=== PATIENT | male | born 1940 | race Caucasian/White ===

== ENCOUNTER 2017-11-27 12:48 | Inpatient (IN) | payer MEDICARE, OTHER, SELFPAY ==
[2017-11-27] VITALS (10 sets, daily range): BP systolic 111–145; BP diastolic 63–74; PULSE 82–91; RESP 16–24; TEMP 36.6–37.4; O2SAT 98–100; BMI 25.0; BMI 25.8; BMI 25.9
--- NOTE | 2017-11-27 13:06 | RAD_ITS ---
STUDY: X-RAY CHEST REASON FOR EXAM: Male, 77 years old. Myocardial infarction TECHNIQUE: Single AP portable view of the chest. COMPARISON: None. FINDINGS: There are monitoring devices. The lungs are hyperexpanded. Left lower lung scarring. There is no demonstrated pleural abnormality. Normal size heart. Normal mediastinum and scarlett. Normal visualized pulmonary arteries. There is atherosclerotic calcification of the aortic arch with tortuosity. Normal visualized thoracic spine. Healed right rib fractures. There is no demonstrated abnormality of the visualized soft tissue structures of the upper abdomen. RAD/Chest 1 View (Portable) IMPRESSION: Degenerative changes, as described above. No demonstrated acute cardiopulmonary process. Electronically Signed: Isca Aj MD at 14:02 EDT , Service support ,
--- NOTE | 2017-11-27 13:06 | NURSING ---
STEMI CALLED [id number] SHELTON FOR DR GUNN [id number]
--- NOTE | 2017-11-27 13:08 | ED.VISSUMM ---
- ER Visit Summary Date of Service: 11/27/17 Chief Complaint: Chest pain History of Present Illness: The patient is a 77 M who presents with chest pain. This began earlier today and is been present for the last several hours. It is severe. He describes as dull. He has associated shortness of breath. He denies nausea or diaphoresis. Denies history of similar symptoms. No history of coronary disease or prior myocardial infarction. He denies a history of diabetes or hypertension and he is a remote smoker but quit 40 years ago. Physical Examination: Blood pressure 145/73 vitals otherwise normal Moist mucous membranes Heart regular rate and rhythm Lungs clear Abdomen soft 2+ symmetric radial pulses Skin warm and dry Alert Test Results: EKG shows ST elevation in leads III and aVF with lateral ST depression consistent with acute inferior STEMI. Labs are pending. Chest x-ray pending. Emergency Department Course and Treatment: Patient was discussed with Dr. arteaga and I did discuss risks and benefits of cardiac catheterization with the patient and patient consents. Patient was given aspirin, IV heparin, IV morphine, Brilinta. Patient will be taken to the Supervisor Twisting Department. Treatment Plan: [] Disposition: To Supervisor Twisting Department Impression: Inferior STEMI This note was generated with AntVoice dictation software. It may contain incorrect words, spelling, and punctuation that were not noted in review of the chart prior to signing ED Disposition - Plan for ED Patient: Chief Complaint: Chest Pain Referrals: Jaime Brown MD [Primary Care Provider] -
[2017-11-27] MEDS: TICAGRELOR 90 MG TABLET 180 MG PO (13:10)
[2017-11-27] MEDS: Aspirin 81 MG TAB.CHEW 324 MG PO (13:10)
[2017-11-27] MEDS: Morphine 4 MG/ML Syringe IV (13:10)
[2017-11-27] MEDS: Heparin Injection (Vial) 5,000 UNIT/ML VIAL 4000 UNIT IV (13:11)
--- NOTE | 2017-11-27 13:11 | ED.DCSUM_ITS ---
- ER Visit Summary Date of Service: 11/27/17 Chief Complaint: Chest pain History of Present Illness: The patient is a 77 M who presents with chest pain. This began earlier today and is been present for the last several hours. It is severe. He describes as dull. He has associated shortness of breath. He denies nausea or diaphoresis. Denies history of similar symptoms. No history of coronary disease or prior myocardial infarction. He denies a history of diabetes or hypertension and he is a remote smoker but quit 40 years ago. Physical Examination: Blood pressure 145/73 vitals otherwise normal Moist mucous membranes Heart regular rate and rhythm Lungs clear Abdomen soft 2+ symmetric radial pulses Skin warm and dry Alert Test Results: EKG shows ST elevation in leads III and aVF with lateral ST depression consistent with acute inferior STEMI. Labs are pending. Chest x- ray pending. Emergency Department Course and Treatment: Patient was discussed with Dr. arteaga and I did discuss risks and benefits of cardiac catheterization with the patient and patient consents. Patient was given aspirin, IV heparin, IV morphine, Brilinta. Patient will be taken to the Patient Account Specialist. Treatment Plan: [] Disposition: To Patient Account Specialist Impression: Inferior STEMI This note was generated with Modabound dictation software. It may contain incorrect words, spelling, and punctuation that were not noted in review of the chart prior to signing ED Disposition - Plan for ED Patient: Chief Complaint: Chest Pain Referrals: Jaime Brown MD [Primary Care Provider] -
[2017-11-27 13:15] LABS: Absolute Lymphocyte Count 1.34 X10^3/ul (0.83-4.51); Absolute Neutrophil Count 8.1 X10^3/uL (2.0-7.7); Basophil# 0.02 X10^3/uL; Basophil% 0.2 % (0-1); Eosinophil# 0.09 X10^3/uL; Eosinophils% 0.8 % (0-5); Hematocrit 36.6 % (40-54); Hemoglobin 12.9 g/dl (13.0-16.5); Lymphocyte # 1.34 X10^3/ul (4.0); Lymphocyte % 12.2 % (19-41); Mean Corp Hgb Conc 35.2 g/gl (32-36); Mean Corpuscular Hgb 32.1 pg (27.0-32.0); Mean Platelet Vol. 9.2 fl (6.2-12.0); Monocyte# 1.46 X10^3/uL; Monocyte% 13.3 % (0-10); Neutrophil # 8.06 X10^3/uL (2.7-7.7); Neutrophil % 73.3 % (47-70); POSITIVE COUNT NO; POSITIVE DIFFERENTIAL NO; POSITIVE MORPHOLOGY NO; Platelet Count 92 K/mm3 (150-450); RBC Distribution Width SD 39.5 fl (35.1-43.9); Red Blood Count 4.02 M/mm3 (4.6-6.2)
--- NOTE | 2017-11-27 13:18 | NURSING ---
DR SHELTON IN WITH PATIENT
[2017-11-27 13:20] LABS: International Normalized Ratio 1.1; Partial Thromboplast Time 32.6 Seconds (24.1-36.2); Prothrombin Time (Protime)PT. 14.1 SECONDS (11.7-14.9)
--- NOTE | 2017-11-27 13:29 | PCM.CONS.C ---
Problem List (1) STEMI (ST elevation myocardial infarction) Status: Acute Reason for Consult Date of Consultation: 11/27/17 History of Present Illness: The patient is a 77 year old M [] Past Medical History Allergies/Adverse Reactions: Allergies No Known Allergies Allergy (Verified 10/25/17 13:58) Home Medications: Ambulatory Orders Medication Instructions Recorded Atorvastatin Calcium [Lipitor] 40 mg PO QHS 01/21/17 Gabapentin [Neurontin] 300 mg PO DAILY 01/21/17 Methocarbamol [Robaxin] 500 mg PO BID 01/21/17 Miconazole Nitrate [Monistat-Derm, 1 applic TOPICAL DAILY 01/21/17 Micatin] Tramadol HCl [Ultram] 50 mg PO BID 01/21/17 Triamcinolone 0.1% Cream [Kenalog] 1 tube TOPICAL DAILY 01/21/17 Meclizine HCl [Antivert] 25 mg PO 4X/DAY PRN PRN 01/25/17 Omeprazole [Prilosec] 40 mg PO DAILY 04/26/17 Hydrocortisone 1% Crm [Hytone] 1 each TOPICAL DAILY PRN 11/27/17 Past Medical History (Chronic Problems): Chronic Problems (Last Reviewed 10/25/17 @ 13:58 by Sandrine Tam) Thrombocytopenia (Chronic) Smoking Status: Former smoker Review of Systems - Review of Systems General: Reports: - - Complaining of being cold. Denies: Fever HEENT: Denies: Head Aches Cardiovascular: Reports: Chest Discomfort at Rest, Chest Discomfort with Exertion, Shortness of Breath with Exertion. Denies: Orthopnea, PND, Peripheral Edema, Palpitations Respiratory: Denies: Hemoptysis Gastrointestinal: Denies: Abdominal Discomfort, Jaundice, Nausea, Hematemesis, Melena Neurological: Denies: History of TIA, History of CVA Psychiatric: Reports: - - Question of dementia Endocrine: Denies: Heat Intolerance, Cold Intolerance Hematologic/ Lymphatic: Reports: - - History of chronic thrombocytopenia. Denies: Easy Brusing, Easy Bleeding Subjectve: Appeared anxious and mildly distressed Objective: Vital Signs Temp Pulse Resp BP Pulse Ox 98 F 91 16 132/67 H 100 11/27/17 12:49 11/27/17 13:15 11/27/17 13:15 11/27/17 13:15 11/27/17 13:15 Oxygen Flow Rate (L/min) 2 Oxygen Delivery Method Nasal Cannula Weight: 68.039 kg Body Mass Index (BMI) 25.0 General: Awake, Alert, Oriented x 3, In Acute Distress HEENT: Atraumatic, Normocephalic Oral: Moist Mucosa Neck: Supple, No JVD Lungs: Clear to auscultation Cardiovascular: Regular Rhythm, Normal S1, Normal S2 Vascular: No Carotid Bruits Abdomen: Bowel Sounds Present, Soft Extremities: No edema Neurological: No Focal Motor or Sensory Deficit Psych/Mental Status: Appropriate 11/27/17 13:00: WBC 11.0, RBC 4.02 L, Hgb 12.9 L, Hct 36.6 L, MCV 91.0, MCH 32.1 H, MCHC 35.2, RDW 12.0, RDW Differential 39.5, Plt Count 92 L, MPV 9.2, Immature Gran % (Auto) 0.200, Neut % (Auto) 73.3 H, Lymph % (Auto) 12.2 L, [place] % (Auto) 13.3 H, Eos % (Auto) 0.8, Baso % (Auto) 0.2, Absolute Neuts (auto) 8.1 H, Total Counted Not Reportable 11/27/17 13:00: PT 14.1, INR 1.1, APTT 32.6 Rhythm: Normal sinus rhythm EKG: Normal sinus rhythm. ST changes consistent with acute inferior myocardial infarction ECHO: Stress Test: Cardiac Cath: PCI: CT Surgery: Holter monitor: EPS: PPM: CXR: Chest CT Scan: Assessment/Plan 1. Acute inferior ST elevation myocardial infarction. Patient was advised emergent coronary angiography with possible revascularization. After obtaining informed consent, patient was brought to the cardiac catheterization lab. Coronary angiography revealed severely calcified vessels. The right coronary artery had about 80% proximal stenosis, 95% mid heavily calcified lesion and 99% distal lesion. Balloon angioplasty was performed to all 3 lesions. The distal lesion improved from 99% to about 30%. The mid lesion which was noted to be heavily calcified however did not open up with balloon angioplasty. Multiple noncompliant balloons were used with pressure as high as 30 humphrey. However the lesion could not be opened up. Balloon angioplasty was performed to the proximal lesion and a 3 oh by 18 mm bare-metal stent was deployed reducing lesion severity from 80% to 0%. GLENDY flow was improved from GLENDY II to GLENDY III. Patient's chest pain resolved. EKG changes resolved. In my opinion, the patient will need rotablation to his mid RCA lesion. I will contact either [facility] or [facility] [place] for possible transfer there. 2. Patient was loaded with aspirin and Brilinta. We will start patient on a heparin infusion when hemostasis of his left hand is achieved. Please note that left distal first radial artery was used for access 3. History of thrombocytopenia 4. History of thrombocytopenia I did speak to the template reproduction technician csm consultant at [facility] [place]. The plan is to transfer him urgently there. If he continues to be chest pain-free, then plan rotablation to the mid RCA tomorrow with possible stent placement
[2017-11-27 13:35] LABS: Anion Gap 11 (5-15); BUN 22 mg/dL (7-18); BUN/Creat Ratio 17.6 RATIO (10-20); Calcium,Total 8.5 mg/dL (8.5-10.1); Chloride 102 mmol/L (98-107); Creatinine, Serum 1.25 mg/dL (0.70-1.30); EST Glomerular Filtration Rate 59 mL/min (>60); Est Glom Filt Rate - Afr Amer 72 mL/min (>60); Estimated Creatinine Clearance 42.37 ml/min; Glucose 96 mg/dL (74-106); Potassium 4.1 mmol/L (3.5-5.1); Sodium Level 139 mmol/L (136-145)
[2017-11-27] MEDS: HYDROmorphone 1 MG/ML Syringe IV (13:44)
--- NOTE | 2017-11-27 13:53 | CON.PCM_ITS ---
Problem List (1) STEMI (ST elevation myocardial infarction) Status: Acute Reason for Consult Date of Consultation: 11/27/17 History of Present Illness: The patient is a 77 year old M [] Past Medical History Allergies/Adverse Reactions: Allergies No Known Allergies Allergy (Verified 10/25/17 13:58) Home Medications: Ambulatory Orders Medication Instructions Recorded Atorvastatin Calcium [Lipitor] 40 mg PO QHS 01/21/17 Gabapentin [Neurontin] 300 mg PO DAILY 01/21/17 Methocarbamol [Robaxin] 500 mg PO BID 01/21/17 Miconazole Nitrate [Monistat-Derm, 1 applic TOPICAL DAILY 01/21/17 Micatin] Tramadol HCl [Ultram] 50 mg PO BID 01/21/17 Triamcinolone 0.1% Cream [Kenalog] 1 tube TOPICAL DAILY 01/21/17 Meclizine HCl [Antivert] 25 mg PO 4X/DAY PRN PRN 01/25/17 Omeprazole [Prilosec] 40 mg PO DAILY 04/26/17 Hydrocortisone 1% Crm [Hytone] 1 each TOPICAL DAILY PRN 11/27/17 Past Medical History (Chronic Problems): Chronic Problems (Last Reviewed 10/25/17 @ 13:58 by Sandrine Tam) Thrombocytopenia (Chronic) Smoking Status: Former smoker Review of Systems - Review of Systems General: Reports: - - Complaining of being cold. Denies: Fever HEENT: Denies: Head Aches Cardiovascular: Reports: Chest Discomfort at Rest, Chest Discomfort with Exertion, Shortness of Breath with Exertion. Denies: Orthopnea, PND, Peripheral Edema, Palpitations Respiratory: Denies: Hemoptysis Gastrointestinal: Denies: Abdominal Discomfort, Jaundice, Nausea, Hematemesis, Melena Neurological: Denies: History of TIA, History of CVA Psychiatric: Reports: - - Question of dementia Endocrine: Denies: Heat Intolerance, Cold Intolerance Hematologic/ Lymphatic: Reports: - - History of chronic thrombocytopenia. Denies: Easy Brusing, Easy Bleeding Subjectve: Appeared anxious and mildly distressed Objective: Vital Signs Temp Pulse Resp BP Pulse Ox 98 F 91 16 132/67 H 100 11/27/17 12:49 11/27/17 13:15 11/27/17 13:15 11/27/17 13:15 11/27/17 13:15 Oxygen Flow Rate (L/min) 2 Oxygen Delivery Method Nasal Cannula Weight: 68.039 kg Body Mass Index (BMI) 25.0 General: Awake, Alert, Oriented x 3, In Acute Distress HEENT: Atraumatic, Normocephalic Oral: Moist Mucosa Neck: Supple, No JVD Lungs: Clear to auscultation Cardiovascular: Regular Rhythm, Normal S1, Normal S2 Vascular: No Carotid Bruits Abdomen: Bowel Sounds Present, Soft Extremities: No edema Neurological: No Focal Motor or Sensory Deficit Psych/Mental Status: Appropriate 11/27/17 13:00: WBC 11.0, RBC 4.02 L, Hgb 12.9 L, Hct 36.6 L, MCV 91.0, MCH 32.1 H, MCHC 35.2, RDW 12.0, RDW Differential 39.5, Plt Count 92 L, MPV 9.2, Immature Gran % (Auto) 0.200, Neut % (Auto) 73.3 H, Lymph % (Auto) 12.2 L, [place] % (Auto) 13.3 H, Eos % (Auto) 0.8, Baso % (Auto) 0.2, Absolute Neuts (auto) 8.1 H, Total Counted Not Reportable 11/27/17 13:00: PT 14.1, INR 1.1, APTT 32.6 Rhythm: Normal sinus rhythm EKG: Normal sinus rhythm. ST changes consistent with acute inferior myocardial infarction ECHO: Stress Test: Cardiac Cath: PCI: CT Surgery: Holter monitor: EPS: PPM: CXR: Chest CT Scan: Assessment/Plan 1. Acute inferior ST elevation myocardial infarction. Patient was advised emergent coronary angiography with possible revascularization. After obtaining informed consent, patient was brought to the cardiac catheterization lab. Coronary angiography revealed severely calcified vessels. The right coronary artery had about 80% proximal stenosis, 95% mid heavily calcified lesion and 99 % distal lesion. Balloon angioplasty was performed to all 3 lesions. The distal lesion improved from 99% to about 30%. The mid lesion which was noted to be heavily calcified however did not open up with balloon angioplasty. Multiple noncompliant balloons were used with pressure as high as 30 humphrey. However the lesion could not be opened up. Balloon angioplasty was performed to the proximal lesion and a 3 oh by 18 mm bare-metal stent was deployed reducing lesion severity from 80% to 0%. GLENDY flow was improved from GLENDY II to GLENDY III. Patient's chest pain resolved. EKG changes resolved. In my opinion, the patient will need rotablation to his mid RCA lesion. I will contact either [facility] or [facility] for possible transfer there. 2. Patient was loaded with aspirin and Brilinta. We will start patient on a heparin infusion when hemostasis of his left hand is achieved. Please note that left distal first radial artery was used for access 3. History of thrombocytopenia 4. History of thrombocytopenia I did speak to the printed circuit boards contact printer boilermaker assembly and erection at [facility]. The plan is to transfer him urgently there. If he continues to be chest pain-free, then plan rotablation to the mid RCA tomorrow with possible stent placement
[2017-11-27] MEDS: 0.9% Normal Saline 1,000 ML 100 ML IV (16:00)
--- NOTE | 2017-11-27 16:29 | CL.I_ITS ---
Patient Name: ELEANOR BANDA Study Date: 11/27/2017 Performing: Jil Mejia MD Ht: 65 inches 165 cm : 1940 Wt: 150.1 lbs 68 kg Age: 77 Gender: male BSA: 1.75 PROCEDURE(S) PERFORMED [id number] GUIDED ACCESS QA04-CGF/COR/LV DB32-TBC, BMS AND/OR PTCA ARTERY OR GRAFT SINGLE VESSEL CLINICAL PROFILE AND CO-MORBIDITIES Heart Failure: None CAD Presentations: STEMI. Symptom onset Date/Time: 11/27/2017 Time Not Available CONCLUSIONS Successful PCI with POBA to distal RCA with 3.0 mm balloon. Reducing lesion severity from 99% to less than 30% Unsuccessful PTCA Mid RCA despite using multiple non-compliant balloons at pressures as high as 30 at mospheres Successful PTCA/BMS Prox RCA using Integrity 3.0x18 mm, post-dilated using 3.25 mm balloon LVEF 50% RECOMMENDATIONS ASA Indefinitley Brilinta for at least 1 month Rotablation to mid RCA with stents to distal and mid RCA. Staged PCI to LAD DESCRIPTION OF PROCEDURE The patient arrived to the procedure lab. The risks and benefits of the procedure as well as a full d escription of our services here and lack of surgical backup were fully explained to the patient and/o r their significant other prior to the catheterization. The Timeout was completed, verifying the willard ect patient and procedure. The patient's procedural site was prepped and draped in the usual fashion. Local anesthetic was given subcutaneously to left radial region with Lidocaine 2%. Using a modified Seldinger technique, and ultrasound guidance,arterial access was obtained via the left radial artery, a 6Fr sheath was inserted.. Left Coronary Artery selective angiography was performed in multiple vi ews using a 5 Fr. 4.0 [place] catheter. Right Coronary Artery selective angiography was then performed in multiple views using a 5 Fr. 4.0 [place] catheter. Left Ventriculography was performed in ANTOINE projec tion using a 5 Fr. Pigtail catheterThe images were reviewed and options discussed. A decision was the n made to proceed with an Intervention, IVUS or other adjunct procedure. AL .75 Guide Guide catheter was inserted and engaged into the RCA. Runthrough Wire Guide wire was adv anced to the RCA. 3.0 x 20 Emerge Balloon catheter was inserted. Balloon catheter was advanced across lesion in the right coronary, mid/distal PTCA balloon inflated at 10 atms for 19 secs. PTCA balloon inflated at 12 atms for 18 secs. PTCA balloon inflated at 10 atms for 12 secs. Angiogram performed po st balloon dilatation. PTCA balloon inflated at 12 atms for 25 secs. PTCA balloon inflated at 12 atms for 15 secs. Angiogram performed post balloon dilatation. 3.0 x 20 NC Emerge Balloon catheter was in serted. Balloon catheter was advanced across lesion in the right coronary, mid/distal. Angiogram perf ormed pre balloon dilatation. PTCA balloon inflated at 18 atms for 20 secs. PTCA balloon inflated at 22 atms for 30 secs. PTCA balloon inflated at 24 atms for 21 secs. PTCA balloon inflated at 24 atms f or 20 secs. PTCA balloon inflated at 18 atms for 10 secs. Angiogram performed post balloon dilatation . Chioce Wire Guide wire was inserted as a av wire [employer] [place] Guide wire was inserted as a budd y wire 2.5 x 20 NC Emerge Balloon catheter was inserted. Balloon catheter was advanced across lesion in the right coronary, mid. PTCA balloon inflated at 16 atms for 13 secs. PTCA balloon inflated at 16 atms for 13 secs. PTCA balloon inflated at 26 atms for 26 secs. PTCA balloon inflated at 24 atms for 23 secs. PTCA balloon inflated at 28 atms for 35 secs. Angiogram performed post balloon dilatation. 2.5 x 15 NC Euphora Balloon catheter was inserted. Balloon catheter was advanced across lesion in th e right coronary, mid/distal. PTCA balloon inflated at 28 atms for 30 secs. 2.5 x 10 Angiosculpt Ball oon catheter was inserted. Balloon catheter was advanced across lesion in the right coronary, mid/dis louis. [employer] [place] Guide wire was inserted as a av wire 2.75 x 15 NC Emerge Balloon catheter was i nserted. Balloon catheter was advanced across lesion in the right coronary, mid/distal. PTCA balloon inflated at 24 atms for 30 secs. PTCA balloon inflated at 26 atms for 22 secs. PTCA balloon inflated at 25 atms for 38 secs. 3.0 x 20 Emerge Balloon catheter was reinserted Balloon catheter was advanced across lesion in the right coronary, prox. Angiogram performed pre balloon dilatation. PTCA balloon inflated at 10 atms for 60 secs. Angiogram performed post balloon dilatation. 3.0 x 18 Integrity Bare Metal stent was inserted Bare Metal stent was advanced across the lesion in the right coronary, prox imal. Angiogram performed pre stent deployment. Angiogram performed post stent deployment. 3.25 x 15 NC Emerge Balloon catheter was inserted. Balloon catheter was advanced across lesion in the right cor onary, proximal. Angiogram performed post balloon dilatation. Angiogram performed pre balloon dilatat ion. 2.5 x 15 NC Emerge Balloon catheter was inserted. Balloon catheter was advanced across lesion in the right coronary, mid. Angiogram performed post balloon dilatation. Angiogram performed post ballo on dilatation. The arterial sheath was pulled and a TR Band was applied for hemostasis 18cc of air CORONARY ANGIOGRAPHY DOMINANCE: Right Dominant LEFT HEART ASSESSMENT Left Ventricular Ejection Fraction: by LV Gram 50 %. Severe posterior hypokinesis LVEDP: 16 mmHg LEFT MAIN: Heavily calcific. No significant angiographic disease LEFT ANTERIOR DECENDING ARTERY: 75% Prox, 70% Mid. Heavily calcified CIRCUMFLEX ARTERY: Mild luminal irregularities with heavily caclific disease RIGHT CORONARY ARTERY: 80% Prox, 95% Mid, 99% distal. All heavily calcified lesions INTERVENTION INFORMATION LESION SITE: RCA Distal Lesion Complexity: High/C, culprit lesion: Yes Pre Stenosis: 99 % Pre intervention GLENYD flow: 2 PROCEDURE: Balloon Angioplasty Post Stenosis: 30 % Post intervention GLENDY flow: 3 Lesion Devices: Cordis 6 Fr AL.75 100cm Guide Catheter Rodriguez Sci EMERGE MR 3.00x20 BALLOON Terumo .014 Runthrough Extra Floppy 180cm straight Rodriguez Sci NC EMERGE MR 3.00x20 BALLOON Rodriguez Sci .014 Choice Xtra Support wire 182cm Rodriguez Sci NC EMERGE MR 2.50x20 BALLOON Meier .014 [employer] [place] Straight 190cm Medtronic NC EUPHORA RX 2.5x15 BALLOON Access [employer] Angiosculpt RX 2.5x10 Scoring Balloon Rodriguez Sci NC EMERGE MR 2.75x15 BALLOON LESION SITE: RCA (Mid) Lesion Complexity: High/C, culprit lesion: No Pre Stenosis: 95 % Pre intervention GLENDY flow: 2 PROCEDURE: Balloon Angioplasty Post Stenosis: 95 % Post intervention GLENDY flow: 3 Lesion Devices: Cordis 6 Fr AL.75 100cm Guide Catheter Rodriguez Sci EMERGE MR 3.00x20 BALLOON Terumo .014 Runthrough Extra Floppy 180cm straight Rodriguez Sci NC EMERGE MR 3.00x20 BALLOON Rodriguez Sci .014 Choice Xtra Support wire 182cm Rodriguez Sci NC EMERGE MR 2.50x20 BALLOON Meier .014 BMW [place] Straight 190cm Medtronic NC EUPHORA RX 2.5x15 BALLOON Access [employer] Angiosculpt RX 2.5x10 Scoring Balloon Rodriguez Sci NC EMERGE MR 2.75x15 BALLOON Rodriguez Sci NC EMERGE MR 2.50x15 BALLOON LESION SITE: RCA (Proximal) Lesion Complexity: Non-High/Non-C, culprit lesion: No Pre Stenosis: 80 % Pre intervention GLENDY flow: 2 PROCEDURE: 0 % Post intervention GLENDY flow: 3 Lesion Devices: Cordis 6 Fr AL.75 100cm Guide Catheter Rodriguez Sci EMERGE MR 3.00x20 BALLOON Terumo .014 Runthrough Extra Floppy 180cm straight Medtronic Integrity RX BMS 3.0x18 COMPLICATIONS No Complications PROCEDURE MEDICATIONS Oxygen: 2 L/min via nasal cannula Angiomax 24.5 ml's 11/27/2017 13:58:07 Angiomax complete @ 11/27/2017 15:16:31 Nitro 200 mcg IC 11/27/2017 14:33:52 Nitro 200 mcg IC 11/27/2017 14:33:52 Verapamil 2.5mg, Ntg 100mcgs, given IA 11/27/2017 13:50:10 IV Bolus: .9 NaCl 1600 ml total 11/27/2017 14:06:10 IV Fluids: .9 NaCl decreased to 100 ml/hr 11/27/2017 14:06:27 SUMMARY OF HEMODYNAMIC DATA Time AIR REST ECG 13:35:07 AO 91/47 (67) SA 13:54:29 LV 112/7, 18 15:22:28 LV 105/4, 16 15:22:35 LV 115/18, 25 15:25:05 LV 108/12, 20 15:25:11 LVp 110/6, 19 15:25:15 AOp 93/-231 (57) 15:25:20 Signed By Jil Mejia MD On 11/27/2017 16:28:52 iJl Mejia MD
--- NOTE | 2017-11-27 17:31 | PCM.DC.BLA ---
Discharge Summary Date of Admission: 11/27/17 Date of Discharge: 11/27/17 Summary: Primary diagnosis: Acute inferior ST elevation myocardial infarction Secondary diagnoses: 1. Dyslipidemia 2. Coronary artery disease 3. Chronic thrombocytopenia Brief history and hospital course: Patient presented to the emergency room with chest pain. EKG showed changes consistent with acute inferior ST elevation myocardial infarction. A STEMI alert was called. Patient was taken emergently to the cardiac catheterization lab. Coronary angiography revealed severe calcific RCA disease. Proximal RCA was about 80%. This was treated with balloon angioplasty and a bare-metal stent was placed. Distal RCA had about 99% disease. Balloon angioplasty was performed reducing lesion severity from 99% to less than 30%. GLENDY III flow was restored. Mid right coronary artery was heavily calcified. 95% lesion. Balloon angioplasty was performed however it was unsuccessful on account of extreme calcification. Multiple noncompliant balloons were used under high pressures however the lesion did not give way. She has GLENDY-3 flow had been restored and the patient was asymptomatic, the procedure was stopped. Patient was transferred to [facility] for possible rotablation to the right coronary artery. Also recommend staged intervention to the left anterior descending artery with rotablation Final disposition: Patient transferred to the [facility] ICU in stable condition
[2017-11-28 06:50] LABS: ACT Activated Clotting Time 307 sec (74-137)
[2017-11-28 06:50] LABS: ACT Activated Clotting Time 186 sec (74-137)
== END 2017-11-27 17:15 | disposition short-term general hospital (02) | DRG 249 ==
LOC: ED 13:33 → ICU 14:00
PROVIDERS: Admitting Provider Internal Medicine Cardiovascular Disease; Emergency Provider Emergency Medicine; Family Provider Family Medicine; PCP Family Medicine; Visit Provider Internal Medicine Cardiovascular Disease
DX: I21.19 ST elevation (STEMI) myocardial infarction involving other coronary artery of inferior wall (principal); D69.6 Thrombocytopenia, unspecified; I25.10 Atherosclerotic heart disease of native coronary artery without angina pectoris; I25.84 Coronary atherosclerosis due to calcified coronary lesion; Z87.891 Personal history of nicotine dependence; E78.5 Hyperlipidemia, unspecified
CPT/HCPCS: 71045; 76937; 80048; 84484; 85025; 85347; 85610; 85730; 92941; 93005; 93458; 99283; J7030; Q9967; A4216; C1725; C1769; C1887; C1894; J0583

== ENCOUNTER → 2017-12-28 13:20 | Outpatient (CLI) | payer MEDICARE, OTHER, SELFPAY ==
[2017-12-28 13:41] LABS: Absolute Lymphocyte Count 1.33 X10^3/ul (0.83-4.51); Basophil# 0.02 X10^3/uL; Basophil% 0.4 % (0-1); Eosinophil# 0.22 X10^3/uL; Eosinophils% 4.2 % (0-5); Hematocrit 34.4 % (40-54); Hemoglobin 11.2 g/dl (13.0-16.5); Lymphocyte # 1.33 X10^3/ul (4.0); Lymphocyte % 25.3 % (19-41); Mean Corp Hgb Conc 32.6 g/gl (32-36); Mean Corpuscular Hgb 30.1 pg (27.0-32.0); Mean Corpuscular Volume 92.5 fL (80-94); Mean Platelet Vol. 9.5 fl (6.2-12.0); Monocyte# 0.68 X10^3/uL; Monocyte% 12.9 % (0-10); Platelet Count 117 K/mm3 (150-450); RBC Distribution Width CV 14.5 % (11.6-14.6); RBC Distribution Width SD 48.6 fl (35.1-43.9); Red Blood Count 3.72 M/mm3 (4.6-6.2); White Blood Count 5.3 K/mm3 (4.4-11.0)
[2017-12-28 13:42] LABS: POSITIVE COUNT NO; POSITIVE DIFFERENTIAL NO; POSITIVE MORPHOLOGY NO
== END ==
PROVIDERS: Nurse Practitioner Family; Family Provider Family Medicine; PCP Family Medicine; Visit Provider Internal Medicine Cardiovascular Disease
DX: D69.6 Thrombocytopenia, unspecified (principal); I25.10 Atherosclerotic heart disease of native coronary artery without angina pectoris
CPT/HCPCS: 36415; 85025

== ENCOUNTER → 2018-01-03 10:24 | Outpatient (CLI) | payer MEDICARE, OTHER, SELFPAY ==
--- NOTE | 2018-01-03 10:32 | PCM.CR.ITP ---
General Information - General Information Admitting Diagnosis: STEMI, PCI w/stent at [facility]. Transferred to [facility] for further intervention. - Education/Goals Barriers to Learning: Hearing Impairment, Vision Impairment Individual Counseling: Initial Assessment: High Blood Pressure, Hypertension, Sedentary Lifestyle Cardiac Rehabilitation Goals: 1. Maintain the individual as the primary focus of care. 2. To improve the patient's quality of life. 3. Identification of cardiac risk factors and provide cardiac risk factor management. 4. Enhance the psychosocial status of the patient. 5. Reconditioning enough to allow the patient to resume customary activities. 6. Control symptoms of cardiac disease Scale for measuring improvement of personal goals: Enter appropriate number in Comments. 2 = Unchanged. 3 = Slightly Better. 4 = Moderate Improvement. 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 Total Cholesterol <200. HDL >45. Triglycerides <150. HgbA1C <7%. BMI <25 - Visit Date of Assessment:: 01/03/18 - Stages of Change Stages of Change:: Action - Diabetes Diabetes:: No Insulin: No Do you monitor your blood sugar at home?: No - Weight Management Height: 5 ft 5 in Weight:: 144 lb Body Fat %:: 23.9 - Intervention Referral to dietitian:: No Referral to Diabetic Clinic:: No Will attend diet classes:: Yes - Education Gave educational materials for:: Healthy eating Tobacco - Initial Assessment - Program Goals Tobacco Program Goals: Complete smoking cessation. Attend education classes. Improve Knowledge Test score - Stage of Change Stages of Change:: Action - Learning Barriers Learning Barriers: Hearing - bilateral hearing loss/wears aids, Vision, Ready to Learn - Family Support Do you have family support?: Yes - Tobacco Use Tobacco Use: Non-smoker Do you use smokeless tobacco?: No - Intervention Smoking Cessation Referral:: No Individual Education/Counseling:: No Education Schedule Given:: Yes - Education Gave educational material for:: Coronary artery disease, Risk factors, Sexuality, Medical compliance, Cardiac A&P, Angina signs & symptoms Psychosocial - Initial Assess - Target Goals Target Goals: Assess presence or absence of depression. Using a valid screening tool, maximizes coping skills. Positive support system - Stages of Change Stages of Change:: Action - Psychosocial Test Tool Used:: HANDS Depression Questionnaire - Intervention PS - Interventions: Yes Attend Stress Management Classes, No Referral to Mental Health, No Referral to [facility] Case Management, No Referral to Physician, No Uses Stress Management Skills - Education Gave educational materials for:: Coping techniques, Signs & symptoms of depression, Stress management, Relaxation techniques - Patient/Program Goal Preventative Medication(s):: Aspirin, Clopidogrel, Statin/lipid - Assistive Devices Assistive Devices:: None Fall Risk Assessed:: Yes Patient Health Questionnaire Initial Assessment 1. Little interest or pleasure in doing things: Not at all 2. Feeling down, depressed, or hopeless: Not at all 3. Trouble falling or staying asleep, or sleeping too much: Not at all 4. Feeling tired or having little energy: Not at all 5. Poor appetite or overeating: Not at all 6. Feeling bad about yourself -- or that you are a failure or have let yourself or your family down: Not at all 7. Trouble concentrating on things, such as reading the newspaper or watching television: Not at all 8. Moving or speaking so slowly that other people could have noticed. Or the opposite - being so fidgety or restless that you have been moving around a lot more than usual: Not at all 9. Thoughts that you would be better off , or of hurting yourself in some way: Not at all How difficult have these problems made it for you to do your work, take care of things at home, or get along with other people?: Not difficult at all Total Score: 0 JEFE-Q SV Test - Statements CAD is a disease of the arteries in the heart: False Examples of risk factors for heart disease: True Angina is chest pain or discomfort: True The benefits of resistance training include: True Eating more meat and dairy products: False Anti-platelet medications such as aspirin are important: True The only effective way to manage stress: False An exercise warm-up slowly increases heart rate: True Prepared, processed foods usually have high sodium: True Depression is common after a heart attack: True The statin medications lower cholesterol: True To control blood pressure, lower the amount of sodium: True If someone gets chest discomfort during walking: False Transfats are partially hydrogenated vegetable oils: True Sleep apnea that is not treated increases the risk: I Don't Know To control cholesterol, one should become a vegetarian: False Someone knows if he/she is exercising at the right level: I Don't Know Diabetes cannot be prevented with exercise & health eating: False Stress is a large risk for heart attack: True A diet that can help lower blood pressure is rich in: True - Total Score Total Correct Responses: 18 Self-Efficacy Initial Assessment We would like to know how confident you are in doing certain activities. Please select your confidence level for:: Select your confidence level for the following using the scale 1-10 where 1 is not at all confident and 10 is totally confident. Your score is the average of all 6 responses. Fatigue: How confident are you that you can keep the fatigue caused by your disease from interfering with the things you want to do? Select Number: 7 Physical Discomfort or Pain: How confident are you that you can keep the physical discomfort or pain of your disease from interfering with the things you want to do? Select Number: 8 Emotional Distress: How confident are you that you can keep the emotional distress caused by your disease from interfering with the things you want to do? Select Number: 8 Other Symptoms or Health Problems: How confident are you that you can keep other symptoms or health problems from interfering with the things you want to do? Select Number: 7 Different Tasks and Activities: How confident are you that you can do the different tasks and activities needed to manage your health condition so as to reduce your need to see a doctor? Select Number: 8 Medication: How confident are you that you can do things other than just taking medication to reduce how much your illness affects your everyday life? Select Number: 8 Total Score:: 7 Nutrition Survey - Nutrition Survey Instructions Scoring Instructions: Scoring is as follows: Yes = 1 points. No = 0 point. Patient score that is >/=12 is considered to be at potential nutritional risk and could benefit from a referral to a registered dietitian. - Nutrition Survey Initial Have you lost >10 lbs over the past 2 months without trying?: No Are you following a special diet at home for diabetes, low fat, or low salt?: Yes Are you interested in meeting with a dietitian for help understanding your diet?: No Do you eat less than 3 meals a day?: No Do you eat fatty meats (beltran, sausage, ribs, etc), fried foods, desserts, large amounts of salad dressings, margarine, butter, or cheese most days?: No Do you have food allergies? [Enter types in comment field]: No Do you eat in restaurants more than 3 times a week?: Yes Do you season food with salt, seasoning salt, or garlic salt?: No Do you used canned, boxed, frozen meals, or soups, seasoning packets?: No Total Score:: 2
--- NOTE | 2018-01-03 10:33 | PCM.CR.HP2 ---
CR - History & Physical - General Arrival date:: 01/03/18 Arrival time:: 10:33 Date of Referral:: 12/15/17 Date of CR Evaluation:: 01/03/18 Referring Physician: Dr. Ashkan Zavaleta Primary Diagnosis: STEMI w/ PCI and coronary stent placement - History of Present Cardiac Event Onset Date: Enter Onset Date of cardiac illnesses in Comment field below Acute Myocardial Infarction within 12 months:: Yes - STEMI 11/27/2017 PTCA or coronary stenting:: Yes - 11/27/2017 stent done here at [facility] then transferred out Type of Symptoms:: chest pains no radiating pain. Interventions with present event:: Immediate transfer to home performance laborer from ER for intervention Were there any complications?: transferred [facility] for further evaluation and angioplasty of 3rd vessel - Medications Home Medications: Ambulatory Orders Medication Instructions Recorded Atorvastatin Calcium [Lipitor] 40 mg PO QHS 01/21/17 Gabapentin [Neurontin] 300 mg PO DAILY 01/21/17 Methocarbamol [Robaxin] 500 mg PO BID 01/21/17 Miconazole Nitrate [Monistat-Derm, 1 applic TOPICAL DAILY 01/21/17 Micatin] Tramadol HCl [Ultram] 50 mg PO BID 01/21/17 Triamcinolone 0.1% Cream [Kenalog] 1 tube TOPICAL DAILY 01/21/17 Meclizine HCl [Antivert] 25 mg PO 4X/DAY PRN PRN 01/25/17 Hydrocortisone 1% Crm [Hytone] 1 ea TOPICAL DAILY PRN 11/27/17 aspirin 81 mg tablet,delayed 81 mg PO DAILY 12/14/17 release metoprolol tartrate 25 mg tablet 25 mg PO BID 12/14/17 omeprazole 40 mg capsule,delayed 40 mg PO DAILY 12/14/17 release ticagrelor 90 mg tablet 90 mg PO BID 12/14/17 - Allergies Allergies/Adverse Reactions: Allergies No Known Allergies Allergy (Verified 12/14/17 14:23) - Sleep Disorder Evaluation Hx of Sleep Apnea: No Do you snore loudly (louder than talking or can be heard through closed doors)?: Yes Do you often feel tired/ fatigued/ sleepy during daytime?: Yes - sometimes but not all the time Has anyone observed you stop breathing during sleep?: No History of Hypertension (for STOP score): Yes STOP Results: Positive Advanced Directives - Advanced Directives Power of Flooring Salesperson: Yes Living Will: Yes Advance Directives Information Provided: No Advance Directives on File: Yes DNR Order?:: No - MOLST See MOLST form: No Past Medical History - Past Medical Illness Medical History: Past Medical History (Last Updated 12/14/17 @ 14:26 by Flores Copeland) Hyperlipidemia (Chronic) E78.5 GERD (gastroesophageal reflux disease) (Chronic) K21.9 Seborrheic dermatitis L21.9 Anemia D64.9 Arthritis M19.90 CATARACTS Cervical radiculopathy M54.12 Dementia F03.90 Headache R51 Hearing deficit H91.90 Vertigo R42 - Past Surgical History Surgical History: Past Surgical History (Last Updated 12/14/17 @ 14:26 by Flores Copeland) History of percutaneous transluminal coronary angioplasty (Chronic) Z98.61 History of tonsillectomy Z98.890, Z90.89 Hx of hernia repair Z98.890, Z87.19 - Family History Summary Family History: Family History (Last Updated 12/14/17 @ 14:27 by Flores Copeland) Mother Heart disease Father Black lung Social History - Smoking History Smoking Status: Former smoker Years Smokin Packs Smoked per Day: 2 Hx Smoking Cessation Date: 1977 Hx Tobacco Use: No Hx Smoking Exposure: No - Alcohol Use Alcohol Usage: Yes - quit drinking 50 years ago as well. - Substance Abuse Hx Substance Use: No - Occupation Occupation (List type of work in comments):: Retired - Hobbies, Recreation, Social Activities Hobbies: Other - hunting, fishing Recreational Activities: I am able to engage in most, but not all activities Social Environment - Status Marital Status: - Current Living Arrangements Living Environment:: Spouse - Children How many children do you have?: 3 Do any of your children live nearby?: Yes - Safety Do you feel safe in your surroundings?: Yes - Assistance Do you need any assistance at home?: none Review of Systems - Review of Systems Hints: Right click = Denies ([place]). Left click = Reports ([place]) Review of Present Symptoms: Reports: Fatigue - sometimes but not all the time, Appetite - Normal, Appetite - Special Diet - Low sodium, 1800 calorie cardiac diet. Denies: Shortness of Breath at Rest, Shortness of Breath with Exertion, Dizziness/Lightheadedness, Heart Arrhythmia/Irregularities - Pain Is Patient Pain Free?: Yes Pain Location: none Pain Level: 0/10 Risk Factor Assessment - Chief Complaint Chief Complaint: Patient is a 77 yr old male patient of Dr. Zavaleta who presents to cardiac rehab today following recent STEMI and immediate PCI intervention. Patient was transferred to [place] for possible surgical intervention but subsequently opted for angioplasty and additional stent versus more invasive procedure. - Vital Signs Temperature: 98.7 F Respiratory Rate: 16 Pulse Ox: 98 - room air Nailbeds:: pink - Pulse Pulse Rate: 78 Pulse Rhythm: Regular - Hypertension How long have you been treated?: July 2017 Blood Pressure Sitting - Right Arm: 106/48 - Obesity Height: 5 ft 5 in Weight:: 144 lb Weight in Pounds: 144.0 lbs Weight Source: Standing Scale Body Mass Index (BMI): 23.9 Nutritional Referral for Obesity: No - Risk Stratification Risk Guidelines: Lowest Risk: Risk Factor for Smoking, Risk Factor for Dyslipidemia, Risk Factor for Diabetes, Risk Factor for Obesity, Risk Factor for Hypertension, Risk Factor for Depression, Moderate Risk: Risk Factor for Sedentary Lifestyle - For Smoking Smoking Risk Guidelines: Smoking Low Risk: None or quit greater than 6 months ago. Smoking Moderate Risk: Smoker or quit 6 months or less ago. Smoking High Risk: Smoker - For Dyslipidemia Dyslipidemia Risk Guidelines: Low Risk: Moderate Risk: High Risk: 15-25% fat 25.1-29% fat >/= 30% fat. <7% sat fat 7-9% sat fat >9% sat fat. <150 mg chol 150-299 mg chol >/= 300 mg chol. LDL <100 LDL 100-129 LDL >/= 130. Chol/HDL ratio <5.0 Chol/HDL ratio 5.0-6.0 Chol/HDL ratio >6.0. Triglycerides <100 Triglycerides 100-149 Triglycerides >/= 150 - For Diabetes Mellitus Diabetes Risk Guidelines: Diabetes Low Risk: HgA1c <6.5% and/or FBG <120. Diabetes Moderate Risk: HgA1c 6.6-7.9% and/or FBG 120-180. Diabetes High Risk: HgA1c >/= 8% and/or FBG >180 - For Obesity/Overweight Obesity/Overweight Risk Guidelines: Obesity Low Risk: BMI <25.0. Obesity Moderate Risk: BMI 25-29.9. Obesity High Risk: BMI >/= 30.0 - For Hypertension Hypertension Risk Guidelines: Hypertension Low Risk: Systolic <120 and Diastolic <80. Hypertension Moderate Risk: Systolic 120-139 and Diastolic 80-89. Hypertension High Risk: Systolic >/= 140 and Diastolic >/= 90 - For Sedentary Lifestyle Sedentary Lifestyle Risk Guidelines: Sedentary Lifestyle Low Risk: >/= 1,500 kcal/week. Sedentary Lifestyle Moderate Risk: 700-1,499 kcal/week. Sedentary Lifestyle High Risk: < 700 kcal/week - For Depression Depression Risk Guidelines: Depression Low Risk: Not clinically depressed. Depression Moderate Risk: Mildly depressed. Depression High Risk: Clinically depressed - Family History Family History: Family History (Last Updated 12/14/17 @ 14:27 by Flores Copeland) Mother Heart disease Father Black lung Motivation - Motivation to Participate On a scale of 1 to 10, how prepared are you to commit to attending program?: 8 What do you see as barriers to successfully being able to complete the program?: none; winter months and road conditions What do you see as the benefits of succesfully completing the program? In other words, what do you hope to get out of participating in the program?: feeling better, getting back to activity Are there issues you are dealing with that will interfere with completing the program?: none Do you have a spouse or signficant other, family or friends who will help support you to complete the program?: yes
--- NOTE | 2018-01-03 10:38 | CR.HP_ITS ---
CR - History & Physical - General Arrival date:: 01/03/18 Arrival time:: 10:33 Date of Referral:: 12/15/17 Date of CR Evaluation:: 01/03/18 Referring Physician: Dr. Ashkan Zavaleta Primary Diagnosis: STEMI w/ PCI and coronary stent placement - History of Present Cardiac Event Onset Date: Enter Onset Date of cardiac illnesses in Comment field below Acute Myocardial Infarction within 12 months:: Yes - STEMI 11/27/2017 PTCA or coronary stenting:: Yes - 11/27/2017 stent done here at [facility] then transferred out Type of Symptoms:: chest pains no radiating pain. Interventions with present event:: Immediate transfer to freezer laboratory technician from ER for intervention Were there any complications?: transferred [facility] for further evaluation and angioplasty of 3rd vessel - Medications Home Medications: Ambulatory Orders Medication Instructions Recorded Atorvastatin Calcium [Lipitor] 40 mg PO QHS 01/21/17 Gabapentin [Neurontin] 300 mg PO DAILY 01/21/17 Methocarbamol [Robaxin] 500 mg PO BID 01/21/17 Miconazole Nitrate [Monistat-Derm, 1 applic TOPICAL DAILY 01/21/17 Micatin] Tramadol HCl [Ultram] 50 mg PO BID 01/21/17 Triamcinolone 0.1% Cream [Kenalog] 1 tube TOPICAL DAILY 01/21/17 Meclizine HCl [Antivert] 25 mg PO 4X/DAY PRN PRN 01/25/17 Hydrocortisone 1% Crm [Hytone] 1 ea TOPICAL DAILY PRN 11/27/17 aspirin 81 mg tablet,delayed 81 mg PO DAILY 12/14/17 release metoprolol tartrate 25 mg tablet 25 mg PO BID 12/14/17 omeprazole 40 mg capsule,delayed 40 mg PO DAILY 12/14/17 release ticagrelor 90 mg tablet 90 mg PO BID 12/14/17 - Allergies Allergies/Adverse Reactions: Allergies No Known Allergies Allergy (Verified 12/14/17 14:23) - Sleep Disorder Evaluation Hx of Sleep Apnea: No Do you snore loudly (louder than talking or can be heard through closed doors)? : Yes Do you often feel tired/ fatigued/ sleepy during daytime?: Yes - sometimes but not all the time Has anyone observed you stop breathing during sleep?: No History of Hypertension (for STOP score): Yes STOP Results: Positive Advanced Directives - Advanced Directives Power of Emergency Department Manager: Yes Living Will: Yes Advance Directives Information Provided: No Advance Directives on File: Yes DNR Order?:: No - MOLST See MOLST form: No Past Medical History - Past Medical Illness Medical History: Past Medical History (Last Updated 12/14/17 @ 14:26 by Flores Copeland) Hyperlipidemia (Chronic) E78.5 GERD (gastroesophageal reflux disease) (Chronic) K21.9 Seborrheic dermatitis L21.9 Anemia D64.9 Arthritis M19.90 CATARACTS Cervical radiculopathy M54.12 Dementia F03.90 Headache R51 Hearing deficit H91.90 Vertigo R42 - Past Surgical History Surgical History: Past Surgical History (Last Updated 12/14/17 @ 14:26 by Flores Copeland) History of percutaneous transluminal coronary angioplasty (Chronic) Z98.61 History of tonsillectomy Z98.890, Z90.89 Hx of hernia repair Z98.890, Z87.19 - Family History Summary Family History: Family History (Last Updated 12/14/17 @ 14:27 by Flores Copeland) Mother Heart disease Father Black lung Social History - Smoking History Smoking Status: Former smoker Years Smokin Packs Smoked per Day: 2 Hx Smoking Cessation Date: 1977 Hx Tobacco Use: No Hx Smoking Exposure: No - Alcohol Use Alcohol Usage: Yes - quit drinking 50 years ago as well. - Substance Abuse Hx Substance Use: No - Occupation Occupation (List type of work in comments):: Retired - Hobbies, Recreation, Social Activities Hobbies: Other - hunting, fishing Recreational Activities: I am able to engage in most, but not all activities Social Environment - Status Marital Status: - Current Living Arrangements Living Environment:: Spouse - Children How many children do you have?: 3 Do any of your children live nearby?: Yes - Safety Do you feel safe in your surroundings?: Yes - Assistance Do you need any assistance at home?: none Review of Systems - Review of Systems Hints: Right click = Denies ([place]). Left click = Reports ([place]) Review of Present Symptoms: Reports: Fatigue - sometimes but not all the time, Appetite - Normal, Appetite - Special Diet - Low sodium, 1800 calorie cardiac diet. Denies: Shortness of Breath at Rest, Shortness of Breath with Exertion, Dizziness/Lightheadedness, Heart Arrhythmia/Irregularities - Pain Is Patient Pain Free?: Yes Pain Location: none Pain Level: 0/10 Risk Factor Assessment - Chief Complaint Chief Complaint: Patient is a 77 yr old male patient of Dr. Zavaleta who presents to cardiac rehab today following recent STEMI and immediate PCI intervention. Patient was transferred to [place] for possible surgical intervention but subsequently opted for angioplasty and additional stent versus more invasive procedure. - Vital Signs Temperature: 98.7 F Respiratory Rate: 16 Pulse Ox: 98 - room air Nailbeds:: pink - Pulse Pulse Rate: 78 Pulse Rhythm: Regular - Hypertension How long have you been treated?: July 2017 Blood Pressure Sitting - Right Arm: 106/48 - Obesity Height: 5 ft 5 in Weight:: 144 lb Weight in Pounds: 144.0 lbs Weight Source: Standing Scale Body Mass Index (BMI): 23.9 Nutritional Referral for Obesity: No - Risk Stratification Risk Guidelines: Lowest Risk: Risk Factor for Smoking, Risk Factor for Dyslipidemia, Risk Factor for Diabetes, Risk Factor for Obesity, Risk Factor for Hypertension, Risk Factor for Depression, Moderate Risk: Risk Factor for Sedentary Lifestyle - For Smoking Smoking Risk Guidelines: Smoking Low Risk: None or quit greater than 6 months ago. Smoking Moderate Risk: Smoker or quit 6 months or less ago. Smoking High Risk: Smoker - For Dyslipidemia Dyslipidemia Risk Guidelines: Low Risk: Moderate Risk: High Risk: 15-25% fat 25.1-29% fat >/= 30% fat. <7% sat fat 7-9% sat fat >9% sat fat. <150 mg chol 150-299 mg chol >/= 300 mg chol. LDL <100 LDL 100-129 LDL >/= 130. Chol/HDL ratio <5.0 Chol/HDL ratio 5.0-6.0 Chol/HDL ratio >6.0. Triglycerides <100 Triglycerides 100-149 Triglycerides >/= 150 - For Diabetes Mellitus Diabetes Risk Guidelines: Diabetes Low Risk: HgA1c <6.5% and/or FBG <120. Diabetes Moderate Risk: HgA1c 6.6-7.9% and/or FBG 120-180. Diabetes High Risk: HgA1c >/= 8% and/or FBG >180 - For Obesity/Overweight Obesity/Overweight Risk Guidelines: Obesity Low Risk: BMI <25.0. Obesity Moderate Risk: BMI 25-29.9. Obesity High Risk: BMI >/= 30.0 - For Hypertension Hypertension Risk Guidelines: Hypertension Low Risk: Systolic <120 and Diastolic <80. Hypertension Moderate Risk: Systolic 120-139 and Diastolic 80-89. Hypertension High Risk: Systolic >/= 140 and Diastolic >/= 90 - For Sedentary Lifestyle Sedentary Lifestyle Risk Guidelines: Sedentary Lifestyle Low Risk: >/= 1 ,500 kcal/week. Sedentary Lifestyle Moderate Risk: 700-1,499 kcal/week. Sedentary Lifestyle High Risk: < 700 kcal/week - For Depression Depression Risk Guidelines: Depression Low Risk: Not clinically depressed. Depression Moderate Risk: Mildly depressed. Depression High Risk: Clinically depressed - Family History Family History: Family History (Last Updated 12/14/17 @ 14:27 by Flores Copeland) Mother Heart disease Father Black lung Motivation - Motivation to Participate On a scale of 1 to 10, how prepared are you to commit to attending program?: 8 What do you see as barriers to successfully being able to complete the program? : none; winter months and road conditions What do you see as the benefits of succesfully completing the program? In other words, what do you hope to get out of participating in the program?: feeling better, getting back to activity Are there issues you are dealing with that will interfere with completing the program?: none Do you have a spouse or signficant other, family or friends who will help support you to complete the program?: yes
[2018-01-03 10:51] VITALS: BP 106/48; PULSE 78; RESP 16; TEMP 37.1; O2SAT 98; BMI 23.9
[2018-01-03 12:00] VITALS: BP 106/48
== END ==
PROVIDERS: Family Provider Family Medicine; PCP Family Medicine; Visit Provider Internal Medicine Cardiovascular Disease
DX: I25.2 Old myocardial infarction (principal); I10 Essential (primary) hypertension; E78.5 Hyperlipidemia, unspecified; K21.9 Gastro-esophageal reflux disease without esophagitis; M19.90 Unspecified osteoarthritis, unspecified site; L21.9 Seborrheic dermatitis, unspecified; F03.90 Unspecified dementia, unspecified severity, without behavioral disturbance, psychotic disturbance, mood disturbance, and anxiety; Z87.19 Personal history of other diseases of the digestive system; Z86.2 Personal history of diseases of the blood and blood-forming organs and certain disorders involving the immune mechanism; Z98.890 Other specified postprocedural states; Z95.5 Presence of coronary angioplasty implant and graft; Z79.82 Long term (current) use of aspirin; Z79.899 Other long term (current) drug therapy; Z87.891 Personal history of nicotine dependence

== ENCOUNTER 2018-01-13 11:30 | Outpatient (RCR) | payer MEDICARE, OTHER, SELFPAY | END 2018-01-15 23:59 | LOC: CR 11:30 | PROVIDERS: Family Provider Family Medicine; PCP Family Medicine; Visit Provider Internal Medicine Cardiovascular Disease | DX: I21.3 ST elevation (STEMI) myocardial infarction of unspecified site (principal); Z95.5 Presence of coronary angioplasty implant and graft | CPT/HCPCS: 93798 ==

== ENCOUNTER 2018-02-15 11:30 | Outpatient (RCR) | payer MEDICARE, OTHER, SELFPAY ==
--- NOTE | 2018-02-02 13:50 | PCM.CR.ITP ---
Exercise - 30-day Assessment - Visit Date of Eval: 02/02/18 - 30-day update Session #:: 10 - Stages of Change Stages of Change:: Action - Exercise Prescription Mode:: Treadmill, Airdyne, NuStep Frequency (x/week): 3 Duration:: 35 METs - Progression: 0.5-1 MET as tolerated: 3.7 Target Heart Rate:: 100-106 - Hypertension Resting Blood Pressure:: 100/50 Peak Exercise Blood Pressure:: 120/58 Medication Changes:: No - Intervention Home Exercise/Activity Goal:: Moderate Exercise 30 min/day x 5 days/wk - Education Goals:: Warm-up, RPE CELESTINE Scale, S/S, Safe Exercise, Self-Monitoring - Exercise Program Goals Exercise Program Goals: Aerobic Activity >30 min Nutrition - Initial Assessment - Program Goals Nutrition Program Goals: LDL <70. Total Cholesterol <200. HDL >45. Triglycerides <150. HgbA1C <7%. BMI <25 - Diabetes Do you monitor your blood sugar at home?: No Nutrition - 30-Day Assessment - Program Goals Nutrition Program Goals: LDL <70. Total Cholesterol <200. HDL >45. Triglycerides <150. HgbA1C <7%. BMI <25 - Visit Date of Eval: 02/02/18 - Stages of Change Stages of Change:: Action - Lipids Has the patient seen the dietitian?: Yes - Diabetes Diabetes:: No Non-Insulin Dependent?: No - Weight Management Weight:: 135 lb 8 oz - Intervention Referral to dietitian:: No Referral to Diabetic Clinic:: No Will attend diet classes:: Yes - Education Attended class for:: Healthy eating Tobacco - Initial Assessment - Program Goals Tobacco Program Goals: Complete smoking cessation. Attend education classes. Improve Knowledge Test score - Learning Barriers Learning Barriers: Hearing - bilateral hearing loss/wears aids, Vision, Ready to Learn Tobacco - 30-Day Assessment - Program Goals Tobacco Program Goals: Complete smoking cessation. Attend education classes. Improve Knowledge Test score - Stage of Change Stages of Change:: Action - Learning Barriers Learning Barriers: Participates in education - Family Support Do you have family support?: Yes - Tobacco Use Tobacco Use: Non-smoker Do you use smokeless tobacco?: No - Intervention Smoking Cessation Referral:: No Education Schedule Given:: Yes - Education Attended class for:: Coronary artery disease, Risk factors, Sexuality, Medical compliance, Cardiac A&P, Angina signs & symptoms Psychosocial - Initial Assess - Target Goals Target Goals: Assess presence or absence of depression. Using a valid screening tool, maximizes coping skills. Positive support system - Psychosocial Test Tool Used:: HANDS Depression Questionnaire - Assistive Devices Fall Risk Assessed:: Yes Psychosocial - 30-Day Assess - Target Goals Target Goals: Assess presence or absence of depression. Using a valid screening tool, maximizes coping skills. Positive support system - Stages of Change Stages of Change:: Action - Psychosocial Test Tool Used:: HANDS Depression Questionnaire - Intervention PS - Interventions: Yes Attend Stress Management Classes, No Referral to Mental Health, No Referral to [facility] Case Management, No Referral to Physician, No Uses Stress Management Skills - Education Attended classes for:: Coping techniques, Signs & symptoms of depression, Stress management, Relaxation techniques - Patient/Program Goal Preventative Medication(s):: Aspirin, Clopidogrel, Beta steven, Statin/lipid - Assistive Devices Assistive Devices:: None Fall Risk Assessed:: Yes Patient Health Questionnaire 30-Day Re-eval Assessment 1. Little interest or pleasure in doing things: Not at all 2. Feeling down, depressed, or hopeless: Not at all 3. Trouble falling or staying asleep, or sleeping too much: Several days 4. Feeling tired or having little energy: Not at all 5. Poor appetite or overeating: Not at all - can't have any salt 6. Feeling bad about yourself -- or that you are a failure or have let yourself or your family down: Not at all 7. Trouble concentrating on things, such as reading the newspaper or watching television: Not at all 8. Moving or speaking so slowly that other people could have noticed. Or the opposite - being so fidgety or restless that you have been moving around a lot more than usual: Not at all 9. Thoughts that you would be better off , or of hurting yourself in some way: Not at all How difficult have these problems made it for you to do your work, take care of things at home, or get along with other people?: Not difficult at all Total Score: 1 Self-Efficacy 30-Day Re-eval Assessment We would like to know how confident you are in doing certain activities. Please select your confidence level for:: Select your confidence level for the following using the scale 1-10 where 1 is not at all confident and 10 is totally confident. Your score is the average of all 6 responses. Fatigue: How confident are you that you can keep the fatigue caused by your disease from interfering with the things you want to do? Select Number: 9 Physical Discomfort or Pain: How confident are you that you can keep the physical discomfort or pain of your disease from interfering with the things you want to do? Select Number: 9 Emotional Distress: How confident are you that you can keep the emotional distress caused by your disease from interfering with the things you want to do? Select Number: 9 Other Symptoms or Health Problems: How confident are you that you can keep other symptoms or health problems from interfering with the things you want to do? Select Number: 10 Different Tasks and Activities: How confident are you that you can do the different tasks and activities needed to manage your health condition so as to reduce your need to see a doctor? Select Number: 10 Medication: How confident are you that you can do things other than just taking medication to reduce how much your illness affects your everyday life? Select Number: 10 Total Score:: 9
[2018-02-02 13:52] VITALS: BP 100/50; BP 120/58
== END 2018-02-15 23:59 ==
LOC: CR 11:30
PROVIDERS: Family Provider Family Medicine; PCP Family Medicine; Referring Provider Internal Medicine Cardiovascular Disease; Visit Provider Internal Medicine Cardiovascular Disease
DX: I21.3 ST elevation (STEMI) myocardial infarction of unspecified site (principal); Z95.5 Presence of coronary angioplasty implant and graft
CPT/HCPCS: 93798

== ENCOUNTER → 2018-02-27 20:00 | Outpatient (CLI) | payer MEDICARE, OTHER, SELFPAY | PROVIDERS: Family Provider Family Medicine; PCP Family Medicine; Visit Provider Family Medicine | DX: G47.9 Sleep disorder, unspecified (principal); R06.81 Apnea, not elsewhere classified; I21.3 ST elevation (STEMI) myocardial infarction of unspecified site; Z95.5 Presence of coronary angioplasty implant and graft | CPT/HCPCS: 93798; 95810 ==

== ENCOUNTER → 2018-03-02 07:04 | Outpatient (CLI) | payer MEDICARE, OTHER, SELFPAY ==
--- NOTE | 2018-03-02 09:47 | STRESSREP_ITS ---
Stress Test Report Date: 03/02/2018 Procedure: Exercise tolerance test/imaging study Indications: CAD; status post PCI Consent: Per the patient Procedure: The patient exercised on a Jimmie protocol for 5 minutes completing Stage II and 2 minutes of Stage III achieving a peak heart rate of 141 bpm (100 % predicted maximal heart rate) with a peak blood pressure 160/70 mmHg and a peak MET capacity of 7 METs. The baseline ECG demonstrated normal sinus rhythm with nonspecific ST/T wave abnormality. The peak exercise ECG demonstrated to new nonspecific ST/T wave abnormality. There were occasional PVCs during recovery. The functional capacity was considered average. There was no complaint of chest discomfort during recovery. The examination was discontinued secondary to dyspnea. Impression: 1. Technically adequate (percent predicted maximal heart rate greater than 85%) exercise tolerance test 2. Peak exercise ECG with continued nonspecific ST/T wave abnormality 3. There were occasional PVCs during recovery 4. Nuclear images pending Myocardial perfusion imaging study: Technique: The patient was injected with 10.5 mCi of technetium 99m Cardiolite and subsequently rest SPECT Cardiolite nuclear imaging was obtained in the horizontal long, vertical long, and short axis views. The patient exercised on a Jimmie protocol for 5 minutes completing Stage II and 2 minutes of Stage III achieving a peak heart rate of 141 bpm (100 % predicted maximal heart rate) with a peak blood pressure 160/70 mmHg and a peak MET capacity of 7 METs. The patient was injected with 32.4 mCi of technetium 99m Cardiolite and subsequently stress SPECT Cardiolite nuclear imaging was obtained in the horizontal long, vertical long, and short axis views. A gated Cardiolite study at peak stress was obtained. Interpretation: Rest and stress SPECT Cardiolite nuclear imaging status post realignment, normalization, and attenuation correction, demonstrates extracardiac/gastrointestinal tracer uptake at rest. Otherwise there appears to be areas of diminished tracer uptake at both rest and stress in portions of the basal inferoseptal and inferior segments. Status post stress there is notation of diminished tracer uptake in portions of the mid inferior segments.. There is diminished end systolic thickening and brightening in portions of the basal to mid inferior segments. The gated Cardiolite study demonstrates diminished myocardial thickening and inward wall motion in the aforementioned areas. The reported LVEF is 44 %. Impression: 1. Rest and stress SPECT Cardiolite nuclear imaging demonstrate myocardial perfusion changes appearing compatible with an area of previous myocardial injury/infarction involving portions of the basal inferior septal and basal inferior segments and post stress myocardial perfusion changes appearing compatible with dannielle-infarct related myocardial ischemia involving portions of the mid inferior segments. 2. The gated Cardiolite study reports an LVEF of 44 %. This note was generated with [employer] software. It may contain incorrect words, spelling, and punctuation that were not noted in checking the note before signing.
== END ==
PROVIDERS: Family Provider Family Medicine; PCP Family Medicine; Referring Provider Internal Medicine Interventional Cardiology; Visit Provider Internal Medicine Interventional Cardiology
DX: I25.10 Atherosclerotic heart disease of native coronary artery without angina pectoris (principal); E78.00 Pure hypercholesterolemia, unspecified
CPT/HCPCS: 78452; 93017; A9500; A4216

== ENCOUNTER 2018-03-02 09:36 | Emergency (ER) | payer OTHER, MEDICARE, SELFPAY ==
[2018-03-02 09:37] VITALS: BP 141/72; PULSE 73; RESP 18; TEMP 36.6; O2SAT 100; BMI 22.8
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
[2018-03-02 10:28] VITALS: BP 108/74; PULSE 68; RESP 15; O2SAT 97
== END 2018-03-02 10:41 | disposition home or self-care (01) ==
PROVIDERS: Emergency Provider Emergency Medicine; Family Provider Family Medicine; PCP Family Medicine
DX: S40.011A Contusion of right shoulder, initial encounter (principal); V67.5XXA Driver of heavy transport vehicle injured in collision with fixed or stationary object in traffic accident, initial encounter; Y93.9 Activity, unspecified; Y92.9 Unspecified place or not applicable; I25.10 Atherosclerotic heart disease of native coronary artery without angina pectoris; K21.9 Gastro-esophageal reflux disease without esophagitis; I10 Essential (primary) hypertension; E78.00 Pure hypercholesterolemia, unspecified; Z95.5 Presence of coronary angioplasty implant and graft; Z79.82 Long term (current) use of aspirin; Z79.899 Other long term (current) drug therapy
CPT/HCPCS: 99282

== ENCOUNTER 2018-03-17 11:30 | Outpatient (RCR) | payer MEDICARE, OTHER, SELFPAY ==
[2018-02-16 01:42] VITALS: BP 100/50; BP 120/58
[2018-03-03 08:17] VITALS: BP 126/70; BP 152/70
--- NOTE | 2018-03-03 08:17 | CR.ITP_ITS ---
Exercise - 60-Day Assessment - Visit Date of Eval: 03/03/18 Session #:: 23 - Stages of Change Stages of Change:: Action - Exercise Prescription Mode:: Treadmill, Airdyne, NuStep Frequency (x/week): 3 Duration:: 35 METs: 5 Target Heart Rate:: 100-106 with max HR 122 - Hypertension Resting Blood Pressure:: 126/70 Peak Exercise Blood Pressure:: 152/70 Medication Changes:: No - Intervention Home Exercise/Activity Goal:: Moderate Exercise 30 min/day x 5 days/wk - Education Goals:: Warm-up, RPE CELESTINE Scale, S/S, Safe Exercise, Self-Monitoring - Exercise Program Goals Exercise Program Goals: Aerobic Activity >30 min Nutrition - Initial Assessment - Program Goals Nutrition Program Goals: LDL <70. Total Cholesterol <200. HDL >45. Triglycerides <150. HgbA1C <7%. BMI <25 - Diabetes Do you monitor your blood sugar at home?: No Nutrition - 60-Day Assessment - Program Goals Nutrition Program Goals: LDL <70. Total Cholesterol <200. HDL >45. Triglycerides <150. HgbA1C <7%. BMI <25 - Visit Date of Eval: 03/03/18 - Stages of Change Stages of Change:: Action - Lipids Has the patient seen the dietitian?: No - Diabetes Diabetes:: No - Weight Management Weight:: 137 lb - Intervention Referral to dietitian:: No Will attend diet classes:: Yes - Education Attended class for:: Healthy eating Tobacco - Initial Assessment - Program Goals Tobacco Program Goals: Complete smoking cessation. Attend education classes. Improve Knowledge Test score - Learning Barriers Learning Barriers: Hearing - bilateral hearing loss/wears aids, Vision, Ready to Learn Tobacco - 60-Day Assessment - Program Goals Tobacco Program Goals: Complete smoking cessation. Attend education classes. Improve Knowledge Test score - Stage of Change Stages of Change:: Action - Learning Barriers Learning Barriers: Participates in education - Family Support Do you have family support?: Yes - Tobacco Use Tobacco Use: Non-smoker Do you use smokeless tobacco?: No - Intervention Education Schedule Given:: Yes - Education Attended class for:: Coronary artery disease, Risk factors, Sexuality, Medical compliance, Cardiac A&P, Angina signs & symptoms Psychosocial - 60-Day Assess - Target Goals Target Goals: Assess presence or absence of depression. Using a valid screening tool, maximizes coping skills. Positive support system - Stages of Change Stages of Change:: Action - Psychosocial Test Tool Used:: HANDS Depression Questionnaire - Intervention PS - Interventions: Yes Attend Stress Management Classes, Yes Uses Stress Management Skills, No Referral to Mental Health, No Referral to [facility] Case Management, No Referral to Physician - Education Attended classes for:: Coping techniques, Signs & symptoms of depression, Stress management, Relaxation techniques - Patient/Program Goal Preventative Medication(s):: Aspirin, Clopidogrel, Beta steven, Statin/lipid - Assistive Devices Assistive Devices:: None Fall Risk Assessed:: Yes Patient Health Questionnaire 60-Day Re-eval Assessment 1. Little interest or pleasure in doing things: Not at all 2. Feeling down, depressed, or hopeless: Not at all 3. Trouble falling or staying asleep, or sleeping too much: Not at all 4. Feeling tired or having little energy: Not at all 5. Poor appetite or overeating: Not at all 6. Feeling bad about yourself -- or that you are a failure or have let yourself or your family down: Not at all 7. Trouble concentrating on things, such as reading the newspaper or watching television: Not at all 8. Moving or speaking so slowly that other people could have noticed. Or the opposite - being so fidgety or restless that you have been moving around a lot more than usual: Not at all 9. Thoughts that you would be better off , or of hurting yourself in some way: Not at all Total Score: 0 Self-Efficacy 60-Day Re-eval Assessment We would like to know how confident you are in doing certain activities. Please select your confidence level for:: Select your confidence level for the followi ng using the scale 1-10 where 1 is not at all confident and 10 is totally confident. Your score is the average of all 6 responses. Fatigue: How confident are you that you can keep the fatigue caused by your disease from interfering with the things you want to do? Select Number: 10 Physical Discomfort or Pain: How confident are you that you can keep the physical discomfort or pain of your disease from interfering with the things you want to do? Select Number: 10 Emotional Distress: How confident are you that you can keep the emotional distress caused by your disease from interfering with the things you want to do? Select Number: 10 Other Symptoms or Health Problems: How confident are you that you can keep other symptoms or health problems from interfering with the things you want to do? Select Number: 10 Different Tasks and Activities: How confident are you that you can do the different tasks and activities needed to manage your health condition so as to reduce your need to see a doctor? Select Number: 10 Medication: How confident are you that you can do things other than just taking medication to reduce how much your illness affects your everyday life? Select Number: 10 Total Score:: 10
== END 2018-03-17 23:59 ==
LOC: CR 11:30
PROVIDERS: Family Provider Family Medicine; PCP Family Medicine; Referring Provider Internal Medicine Cardiovascular Disease; Visit Provider Internal Medicine Cardiovascular Disease
DX: I21.3 ST elevation (STEMI) myocardial infarction of unspecified site (principal); Z95.5 Presence of coronary angioplasty implant and graft
CPT/HCPCS: 93798

== ENCOUNTER 2018-04-12 14:15 | Outpatient (RCR) | payer MEDICARE, OTHER, SELFPAY ==
[2018-03-14 11:28] VITALS: BMI 22.8
[2018-03-18 01:23] VITALS: BP 126/70; BP 152/70
--- NOTE | 2018-04-03 09:23 | PCM.CR.ITP ---
General Information - General Information Admitting Diagnosis: PCI with coronary stent placement - Education/Goals Cardiac Rehabilitation Goals: 1. Maintain the individual as the primary focus of care. 2. To improve the patient's quality of life. 3. Identification of cardiac risk factors and provide cardiac risk factor management. 4. Enhance the psychosocial status of the patient. 5. Reconditioning enough to allow the patient to resume customary activities. 6. Control symptoms of cardiac disease Scale for measuring improvement of personal goals: Enter appropriate number in Comments. 2 = Unchanged. 3 = Slightly Better. 4 = Moderate Improvement. 5 = Met my Goal Exercise - 90-Day Assessment - Visit Date of Eval: 04/03/18 Session #:: 30 - Stages of Change Stages of Change:: Action - Exercise Prescription Mode:: Treadmill, Airdyne, NuStep Frequency (x/week): 3 Duration:: 35 METs: 5 Target Heart Rate:: 100-106 Max HR 120 - Hypertension Resting Blood Pressure:: 126/64 Peak Exercise Blood Pressure:: 136/70 - Intervention Home Exercise/Activity Goal:: Sitting Time <3 hrs/day - Education Goals:: Warm-up, RPE CELESTINE Scale, S/S, Safe Exercise, Self-Monitoring - Exercise Program Goals Exercise Program Goals: Aerobic Activity >30 min, B/P <130/80 Nutrition - Initial Assessment - Program Goals Nutrition Program Goals: LDL <70. Total Cholesterol <200. HDL >45. Triglycerides <150. HgbA1C <7%. BMI <25 - Diabetes Do you monitor your blood sugar at home?: No Nutrition - 90-Day Assessment - Program Goals Nutrition Program Goals: LDL <70. Total Cholesterol <200. HDL >45. Triglycerides <150. HgbA1C <7%. BMI <25 - Visit Date of Eval: 04/03/18 - Stages of Change Stages of Change:: Action - Weight Management Weight:: 62.596 kg - Intervention Referral to dietitian:: No Referral to Diabetic Clinic:: No Will attend diet classes:: Yes - Education Attended class for:: Signs & symptoms of hypoglycemia, Signs & symptoms of hyperglycemia, Relate diabetes to coronary artery disease, Healthy eating Tobacco - Initial Assessment - Program Goals Tobacco Program Goals: Complete smoking cessation. Attend education classes. Improve Knowledge Test score - Learning Barriers Learning Barriers: Hearing - bilateral hearing loss/wears aids, Vision, Ready to Learn Tobacco - 90-Day Assessment - Program Goals Tobacco Program Goals: Complete smoking cessation. Attend education classes. Improve Knowledge Test score - Stage of Change Stages of Change:: Action - Learning Barriers Learning Barriers: Participates in education - Family Support Do you have family support?: Yes - Tobacco Use Tobacco Use: Non-smoker - Intervention Smoking Cessation Referral:: No Individual Education/Counseling:: No Education Schedule Given:: Yes - Education Attended class for:: Tobacco triggers, Coronary artery disease, Risk factors, Sexuality, Medical compliance, Cardiac A&P, Angina signs & symptoms Psychosocial - Initial Assess - Target Goals Target Goals: Assess presence or absence of depression. Using a valid screening tool, maximizes coping skills. Positive support system - Psychosocial Test Tool Used:: HANDS Depression Questionnaire - Assistive Devices Fall Risk Assessed:: Yes Psychosocial - 90-Day Assess - Target Goals Target Goals: Assess presence or absence of depression. Using a valid screening tool, maximizes coping skills. Positive support system - Stages of Change Stages of Change:: Action - Psychosocial Test Tool Used:: HANDS Depression Questionnaire - Intervention PS - Interventions: Yes Attend Stress Management Classes, Yes Uses Stress Management Skills, No Referral to Mental Health, No Referral to [facility] Case Management, No Referral to Physician - Education Attended classes for:: Coping techniques, Signs & symptoms of depression, Stress management, Relaxation techniques - Assistive Devices Assistive Devices:: None Fall Risk Assessed:: Yes Patient Health Questionnaire 90-Day Re-eval Assessment 1. Little interest or pleasure in doing things: Not at all 2. Feeling down, depressed, or hopeless: Not at all 3. Trouble falling or staying asleep, or sleeping too much: Not at all 4. Feeling tired or having little energy: Not at all 5. Poor appetite or overeating: Not at all 6. Feeling bad about yourself -- or that you are a failure or have let yourself or your family down: Not at all 7. Trouble concentrating on things, such as reading the newspaper or watching television: Not at all 8. Moving or speaking so slowly that other people could have noticed. Or the opposite - being so fidgety or restless that you have been moving around a lot more than usual: Not at all 9. Thoughts that you would be better off , or of hurting yourself in some way: Not at all How difficult have these problems made it for you to do your work, take care of things at home, or get along with other people?: Not difficult at all Total Score: 0 Self-Efficacy 90-Day Re-eval Assessment We would like to know how confident you are in doing certain activities. Please select your confidence level for:: Select your confidence level for the following using the scale 1-10 where 1 is not at all confident and 10 is totally confident. Your score is the average of all 6 responses. Fatigue: How confident are you that you can keep the fatigue caused by your disease from interfering with the things you want to do? Select Number: 10 Physical Discomfort or Pain: How confident are you that you can keep the physical discomfort or pain of your disease from interfering with the things you want to do? Select Number: 10 Emotional Distress: How confident are you that you can keep the emotional distress caused by your disease from interfering with the things you want to do? Select Number: 10 Other Symptoms or Health Problems: How confident are you that you can keep other symptoms or health problems from interfering with the things you want to do? Select Number: 10 Different Tasks and Activities: How confident are you that you can do the different tasks and activities needed to manage your health condition so as to reduce your need to see a doctor? Select Number: 10 Medication: How confident are you that you can do things other than just taking medication to reduce how much your illness affects your everyday life? Select Number: 10 Total Score:: 10
[2018-04-03 09:28] VITALS: BP 126/64; BP 136/70
== END 2018-04-17 23:59 ==
LOC: CR 14:15
PROVIDERS: Family Provider Family Medicine; PCP Family Medicine; Referring Provider Internal Medicine Cardiovascular Disease; Visit Provider Internal Medicine Cardiovascular Disease
DX: I21.3 ST elevation (STEMI) myocardial infarction of unspecified site (principal); Z95.5 Presence of coronary angioplasty implant and graft
CPT/HCPCS: 93798

== ENCOUNTER → 2018-04-28 22:06 | Outpatient (CLI) | payer MEDICARE, OTHER, SELFPAY | PROVIDERS: Family Provider Internal Medicine; PCP Family Medicine; Referring Provider Family Medicine; Visit Provider Family Medicine | DX: G47.33 Obstructive sleep apnea (adult) (pediatric) (principal); G47.61 Periodic limb movement disorder | CPT/HCPCS: 95811 ==

== ENCOUNTER → 2018-07-20 15:38 | Outpatient (CLI) | payer MEDICARE, OTHER, SELFPAY ==
[2018-04-25 13:24] VITALS: BMI 23.6
--- NOTE | 2018-07-20 15:43 | RAD_ITS ---
HISTORY: rash for over a year EXAM: XR Chest 2 Views COMPARISON: None FINDINGS: LINES/DEVICES: None. LUNGS: Radiographically clear. No consolidation, edema or effusion. No pneumothorax. MEDIASTINUM AND CARDIOVASCULAR STRUCTURES: Cardiac silhouette not enlarged. Central airways and mediastinal contour are unremarkable. BONES AND SOFT TISSUES: Chronic right rib fractures. No acute findings. RAD/Chest PA and Lateral IMPRESSION: No radiographic evidence of acute cardiopulmonary disease. at [id number] Reported and signed by: Italo Wakefield MD Electronically Signed: Italo Wakefield, at 23:12 EDT Tel , Service support ,
== END ==
PROVIDERS: Family Provider Family Medicine; PCP Family Medicine; Referring Provider Dermatology; Visit Provider Dermatology
DX: L29.8 Other pruritus (principal); L20.84 Intrinsic (allergic) eczema
CPT/HCPCS: 71046

== ENCOUNTER → 2018-08-04 12:36 | Outpatient (CLI) | payer MEDICARE, OTHER, SELFPAY ==
[2018-04-25 13:24] VITALS: BMI 23.6
[2018-08-04 13:19] LABS: Absolute Lymphocyte Count 1.18 X10^3/ul (0.83-4.51); Absolute Neutrophil Count 4.3 X10^3/uL (2.0-7.7); Basophil# 0.02 X10^3/uL; Basophil% 0.3 % (0-1); Eosinophil# 0.24 X10^3/uL; Eosinophils% 3.8 % (0-5); Hematocrit 37.5 % (40-54); Hemoglobin 12.8 g/dl (13.0-16.5); Lymphocyte # 1.18 X10^3/ul (4.0); Lymphocyte % 18.7 % (19-41); Mean Corp Hgb Conc 34.1 g/gl (32-36); Mean Corpuscular Hgb 32.4 pg (27.0-32.0); Mean Corpuscular Volume 94.9 fL (80-94); Mean Platelet Vol. 9.2 fl (6.2-12.0); Monocyte% 9.5 % (0-10); Neutrophil # 4.25 X10^3/uL (2.7-7.7); Neutrophil % 67.4 % (47-70); Platelet Count 76 K/mm3 (150-450); RBC Distribution Width SD 44.8 fl (35.1-43.9); Red Blood Count 3.95 M/mm3 (4.6-6.2); White Blood Count 6.3 K/mm3 (4.4-11.0)
[2018-08-04 13:21] LABS: POSITIVE COUNT NO; POSITIVE DIFFERENTIAL NO; POSITIVE MORPHOLOGY NO
[2018-08-04 13:43] LABS: AST(SGOT) 25 U/L (15-37); Alanine Aminotransfer ALT/SGPT 31 U/L (16-61); Albumin, Serum 3.6 g/dL (3.2-5.0); Alkaline Phosphatase 75 U/L (45-117); Anion Gap 5 (5-15); BUN 20 mg/dL (7-18); BUN/Creat Ratio 15.5 RATIO (10-20); Calcium,Total 8.6 mg/dL (8.5-10.1); Chloride 108 mmol/L (98-107); Creatinine, Serum 1.29 mg/dL (0.70-1.30); EST Glomerular Filtration Rate 57 mL/min (>60); Est Glom Filt Rate - Afr Amer 69 mL/min (>60); Globulin 2.6 g/dL (2.2-4.2); Glucose 85 mg/dL (74-106); Potassium 4.2 mmol/L (3.5-5.1); Protein, Total 6.2 g/dL (6.4-8.2); Sodium Level 141 mmol/L (136-145); T4 Free Direct 0.87 ng/dL (0.76-1.46); Thyroid Stim Hormone (TSH) 1.68 uIU/mL (0.358-3.74)
[2018-08-04 14:20] LABS: HIV - WCH Non-Reactive (Nonreactive)
[2018-08-08 14:06] LABS: Albumin 3.8 g/dL (2.9-4.4); Alpha-1-Globulins 0.2 g/dL (0.0-0.4); Alpha-2-Globulins 0.5 g/dL (0.4-1.0); Gamma Globulin 0.7 g/dL (0.4-1.8); Immunoglobulin A 109 mg/dL (61-437); Immunoglobulin G 681 mg/dL (700-1600); Immunoglobulin M 135 mg/dL (15-143); PROEL- TOTAL PROTEIN 6.1 g/dL (6.0-8.5); PROELU- Albumin, Urine 20.5 % (.); PROELU- Alpha-1-Globulin,Ur 6.2 % (.); PROELU- Beta Globulin, Ur 33.5 % (.); PROELU- Gamma Globulin, Ur 22.9 % (.); Total Protein, Ur 7.5 mg/dL (Not Estab.)
[2018-08-08 17:06] LABS: Hep C Antibodies <0.1 s/co ratio (0.0-0.9)
[2018-08-08 17:07] LABS: Deamidated Gliadin IgA 2 units (0-19); Deamidated Gliadin IgG 4 units (0-19); t-Transglutaminase IgA <2 U/mL (0-3)
== END ==
PROVIDERS: Family Provider Family Medicine; PCP Family Medicine; Referring Provider Dermatology; Visit Provider Dermatology
DX: L29.8 Other pruritus (principal); L20.84 Intrinsic (allergic) eczema
CPT/HCPCS: 36415; 80048; 80076; 82784; 83516; 84165; 84166; 84439; 84443; 85025; 86334; 86703; 86803

== ENCOUNTER → 2018-10-30 | Outpatient (CLI) | payer MEDICARE, OTHER, SELFPAY ==
[2018-10-24 13:22] VITALS: BMI 23.8
== END | disposition home or self-care (01) ==
LOC: LABSPEC 12:52
PROVIDERS: Family Provider Family Medicine; PCP Family Medicine; Referring Provider Internal Medicine Medical Oncology; Visit Provider Internal Medicine Medical Oncology
DX: D69.6 Thrombocytopenia, unspecified (principal); D64.9 Anemia, unspecified
CPT/HCPCS: 82274

== ENCOUNTER → 2019-03-14 14:16 | Outpatient (CLI) | payer MEDICARE, OTHER, SELFPAY ==
[2019-02-05 11:34] VITALS: BMI 24.2
[2019-03-14 15:44] LABS: Absolute Lymphocyte Count 1.43 X10^3/uL (0.83-4.51); Absolute Neutrophil Count 3.2 X10^3/uL (2.0-7.7); Basophil# 0.02 X10^3/uL; Basophil% 0.3 % (0-1); Eosinophil# 0.35 X10^3/uL; Hematocrit 38.1 % (40-54); Hemoglobin 12.7 g/dL (13.0-16.5); Lymphocyte # 1.43 X10^3/ul (4.0); Lymphocyte % 24.6 % (19-41); Mean Corp Hgb Conc 33.3 g/dL (32-36); Mean Corpuscular Hgb 32.3 pg (27.0-32.0); Mean Corpuscular Volume 96.9 fL (80-94); Mean Platelet Vol. 9.8 fl (6.2-12.0); Monocyte% 13.8 % (0-10); NRBC Flagged by Analyzer 0 % (0-5); Neutrophil # 3.19 X10^3/uL (2.7-7.7); Platelet Count 111 K/mm3 (150-450); RBC Distribution Width CV 12.2 % (11.6-14.6); RBC Distribution Width SD 43.7 fl (35.1-43.9); Red Blood Count 3.93 M/mm3 (4.6-6.2); White Blood Count 5.8 K/mm3 (4.4-11.0)
[2019-03-14 15:55] LABS: Erythrocyte Sedimentation Rate 5 mm/hr (0-20)
[2019-03-14 16:22] LABS: ALB/GLOB Ratio 1.2 RATIO (0.9-2.4); AST(SGOT) 25 U/L (15-37); Alanine Aminotransfer ALT/SGPT 32 U/L (16-61); Albumin, Serum 3.6 g/dL (3.2-5.0); Alkaline Phosphatase 76 U/L (45-117); Anion Gap 5 (5-15); BUN 12 mg/dL (7-18); BUN/Creat Ratio 9.9 RATIO (10-20); CRP < 2.90 mg/L (0.0-3.0); Calcium,Total 8.7 mg/dL (8.5-10.1); Chloride 111 mmol/L (98-107); Creatinine, Serum 1.21 mg/dL (0.70-1.30); EST Glomerular Filtration Rate 61 mL/min (>60); Est Glom Filt Rate - Afr Amer 74 mL/min (>60); Globulin 2.9 g/dL (2.2-4.2); Glucose 90 mg/dL (74-106); Potassium 3.5 mmol/L (3.5-5.1); Protein, Total 6.5 g/dL (6.4-8.2); Rheumatoid Factor < 10.0 IU/mL (<15); Sodium Level 144 mmol/L (136-145)
[2019-03-17 11:18] LABS: Hepatitis B Surface Antibody Non-Reactive; Hepatitis B Surface Antigen Non-Reactive (Nonreactive); Hepatitis C Antibody Non-Reactive (Nonreactive)
[2019-03-18 13:08] LABS: CCP IgG Antibodies 127 units (0-19); Hepatitis B Core AB IgM Negative (Negative)
[2019-03-19 21:06] LABS: ANTINUCLEAR ANTIBODIES DIRECT Positive (Negative)
== END ==
PROVIDERS: Family Provider Family Medicine; PCP Family Medicine; Referring Provider Internal Medicine Rheumatology; Visit Provider Internal Medicine Rheumatology
DX: M06.4 Inflammatory polyarthropathy (principal); M19.041 Primary osteoarthritis, right hand; M47.892 Other spondylosis, cervical region; M47.897 Other spondylosis, lumbosacral region; I10 Essential (primary) hypertension; G25.81 Restless legs syndrome
CPT/HCPCS: 36415; 80053; 85025; 85652; 86038; 86140; 86200; 86431; 86705; 86706; 86803; 87340

== ENCOUNTER → 2019-10-08 08:30 | Outpatient (CLI) | payer MEDICARE, OTHER, SELFPAY ==
[2019-04-24 13:42] VITALS: BMI 24.3
[2019-10-08 12:51] LABS: Absolute Lymphocyte Count 1.28 X10^3/uL (0.83-4.51); Absolute Neutrophil Count 2.4 X10^3/uL (2.0-7.7); Basophil# 0.04 X10^3/uL; Basophil% 0.8 % (0-1); Eosinophil# 0.52 X10^3/uL; Eosinophils% 10.4 % (0-5); Hematocrit 36.9 % (40-54); Hemoglobin 12.3 g/dL (13.0-16.5); Lymphocyte # 1.28 X10^3/ul (4.0); Lymphocyte % 25.7 % (19-41); Mean Corp Hgb Conc 33.3 g/dL (32-36); Mean Corpuscular Volume 96.1 fL (80-94); Mean Platelet Vol. 10.2 fl (6.2-12.0); Monocyte# 0.74 X10^3/uL; Monocyte% 14.8 % (0-10); NRBC Flagged by Analyzer 0 % (0-5); Neutrophil % 48.1 % (47-70); POSITIVE COUNT YES; Platelet Count 84 K/mm3 (150-450); RBC Distribution Width CV 12.8 % (11.6-14.6); RBC Distribution Width SD 45.1 fl (35.1-43.9); Red Blood Count 3.84 M/mm3 (4.6-6.2)
[2019-10-08 12:52] LABS: Differential Indicated SCAN CRITERIA MET
[2019-10-08 13:06] LABS: ALB/GLOB Ratio 1.3 RATIO (0.9-2.4); AST(SGOT) 22 U/L (15-37); Alanine Aminotransfer ALT/SGPT 37 U/L (16-61); Albumin, Serum 3.5 g/dL (3.2-5.0); Alkaline Phosphatase 74 U/L (45-117); Anion Gap 5 (5-15); BUN 14 mg/dL (7-18); BUN/Creat Ratio 12.6 RATIO (10-20); Calcium,Total 8.7 mg/dL (8.5-10.1); Chloride 112 mmol/L (98-107); Cholesterol 125 mg/dL (200); Creatinine, Serum 1.11 mg/dL (0.70-1.30); EST Glomerular Filtration Rate 68 mL/min (>60); Est Glom Filt Rate - Afr Amer 82 mL/min (>60); Globulin 2.6 g/dL (2.2-4.2); Glucose 98 mg/dL (74-106); High Density Lipoprotein 41 mg/dL; Protein, Total 6.1 g/dL (6.4-8.2); Sodium Level 144 mmol/L (136-145); Triglycerides 98 mg/dL; Very Low Density Lipoprotein 20 mg/dL (5-40)
[2019-10-08 13:29] LABS: Platelet Estimate MOD DEC (ADEQ)
== END ==
PROVIDERS: PCP Family Medicine; Visit Provider Family Medicine
DX: E78.5 Hyperlipidemia, unspecified (principal); L11.1 Transient acantholytic dermatosis [Grover]; D69.6 Thrombocytopenia, unspecified
CPT/HCPCS: 36415; 80053; 80061; 84443; 85025

== ENCOUNTER → 2022-08-17 | Outpatient (CLI) | payer OTHER, SELFPAY ==
[2022-08-17 13:49] LABS: Vitamin B12 563 pg/mL (211-911)
[2022-08-17 14:01] LABS: Homocysteine 6.2 umol/L (3.2-10.7)
--- NOTE | 2022-08-17 14:10 | CT_ITS ---
STUDY: CT BRAIN WITHOUT CONTRAST REASON FOR EXAM: Male, 82 years old. Disorientation. RADIATION DOSAGE (If Supplied By Facility): CTDIvol = ( 47.06 ) mGy, DLP = ( 890.33 ) mGycm TECHNIQUE: Transaxial CT imaging of the brain was performed without administration of intravenous contrast material. Individualized dose optimization techniques were used for this CT. COMPARISON: No relevant priors. FINDINGS: Normal soft tissue structures. Normal calvarium. There is mild cerebral atrophy with widening of the extra-axial spaces and ventricular dilatation. There are areas of decreased attenuation within the white matter tracts of the supratentorial brain, consistent with microvascular disease changes. Normal basal ganglia and thalami. Normal brainstem. Normal cerebellum. There is no intracranial hemorrhage. There are no findings of an acute ischemic infarction. Atherosclerotic calcification of the vertebral arteries and cavernous portions of the internal carotid arteries bilaterally. Mucosal thickening along the posterior inferior aspect of the right maxillary sinus. CT/Brain/Head without Contrast IMPRESSION: Chronic involutional changes of the brain. Electronically Signed: Jorge Cortez MD at 15:19 EDT ,
== END | disposition home or self-care (01) ==
LOC: CT 12:55
PROVIDERS: PCP Nurse Practitioner Family
DX: R41.0 Disorientation, unspecified (principal); R41.3 Other amnesia
CPT/HCPCS: 36415; 70450; 82607; 82746; 83090

== ENCOUNTER → 2023-03-23 | Outpatient (CLI) | payer MEDICARE, OTHER, SELFPAY ==
--- NOTE | 2023-03-23 08:36 | RAD_ITS ---
STUDY: X-RAY - ESOPHAGUS (BARIUM SWALLOW) WITH FLUOROSCOPY REASON FOR EXAM: Male, 83 years old. DYSPHAGIA TECHNIQUE: 27 view(s) of the esophagus were obtained following swallowing of barium. FLUOROSCOPY TIME (if supplied): (33 seconds) minutes/seconds. 9.51 mGy COMPARISON: None. FINDINGS: There is no demonstrated esophageal foreign body. There is no demonstrated stricture or mucosal abnormality. Normal gastroesophageal junction, without a demonstrated hiatal hernia. The patient ingested a 12 mm tablet of barium without any difficulty. There is atherosclerotic calcification of the aortic arch with tortuosity of the descending aorta. Normal visualized pulmonary parenchyma. There are diffuse degenerative changes of the visualized thoracic spine. RAD/Esophagus Dual Contrast IMPRESSION: Normal plain film x-ray examination (barium swallow) of the esophagus. Electronically Signed: Jorge Cortez MD at 12:32 EST ,
== END | disposition home or self-care (01) ==
PROVIDERS: PCP Nurse Practitioner Family; Referring Provider Otolaryngology; Visit Provider Otolaryngology
DX: R13.10 Dysphagia, unspecified (principal)
CPT/HCPCS: 74221

== ENCOUNTER → 2023-05-10 | Outpatient (CLI) | payer BC, OTHER, SELFPAY ==
--- NOTE | 2023-05-10 14:41 | CT_ITS ---
STUDY: CT CHEST WITHOUT CONTRAST REASON FOR EXAM: Male, 83 years old. Concern for pulmonary fibrosis RADIATION DOSAGE (If Supplied By Facility): CTDIvol = ( 14.91 ) mGy, DLP = ( 480.47 ) mGycm TECHNIQUE: Transaxial imaging was performed without the administration of intravenous contrast material. Individualized dose optimization techniques were used for this CT. COMPARISON: No relevant priors. FINDINGS: CHEST The lungs are normal. There is no demonstrated pleural abnormality. There are calcifications of the coronary arteries. There are small lymph nodes within the mediastinum, which are normal in size and morphology most compatible with reactive lymph hyperplasia. Normal hilar regions. Normal unenhanced pulmonary arteries. There is atherosclerotic calcification of the aortic arch with tortuosity and elongation of the aortic arch and descending thoracic aorta. There are multi-level degenerative changes of the thoracic spine. Increased kyphosis. There is no demonstrated abnormality of the visualized upper abdomen. CT/Chest without Contrast IMPRESSION: No acute abnormality is seen. Electronically Signed: Jorge Cortez MD at 15:54 EST ,
== END | disposition home or self-care (01) ==
LOC: CT 14:39
PROVIDERS: PCP Nurse Practitioner Family; Referring Provider Internal Medicine Critical Care Medicine; Visit Provider Internal Medicine Critical Care Medicine
DX: R06.02 Shortness of breath (principal)
CPT/HCPCS: 71250

== ENCOUNTER → 2023-05-19 | Outpatient (CLI) | payer MEDICARE, OTHER, SELFPAY ==
--- OUTSIDE RECORDS SUMMARY | 2023-05-19 14:57 | XMS RPT_ITS | CCD ---
Author Name Unknown Address [address] [place] [address] Organization [facility] Care Team Providers Care Hemstitcher Name Role Phone Valeria SHI Unavailable Unavailable Valeria SHI Unavailable Unavailable CHANCE LASSITER Unavailable Unavailable ZANA ESCOBAR Unavailable Unavailable LEONIDAS DC Unavailable Unavailable CHANCE LASSITER Unavailable Unavailable MAE GAUTAM Unavailable Unavailable TEODORO HOOPER Unavailable Unavailable FCO GROVE Unavailable Unavailable Unavailable Primary Care Provider UnavailSusie Gambino Unavailable Ronaldo Clemons Unavailable [phone] Ridge Bartlett Unavailable Hilary Alcantar MD Unavailable Prabhjot Riggins Sr. Unavailable Zev Aaron MD Unavailable [phone] Chance Lassiter MD Primary Care Provider Susie Phillips Unavailable Ronaldo Clemons Unavailable [phone] Ridge Bartlett Unavailable Hilary Alcantar MD Unavailable [phone] Prabhjot Riggins Sr. Unavailable Zev Aaron MD Unavailable Chance Lassiter MD Primary Care Provider Unavailable Primary Care Provider UnavailADRI Engel Attending Unavailabl e SELF, SELF Referring Unavailable ADRI VELAZQUEZ Referring UnavailADRI Engel Attending Unavailno Phillips MD, Susie Unavailable [phone] CHANCE LASSITER Primary Care Unavailable FELY HANDY Referring Unavailable FELY HANDY Attending Unavailable Allergies Allergy Classification Reported Allergen(s) Allergy Type Date of Onset Reaction(s) Facility (1 source) [facility] 08-09-2022 [facility] Work Phone: Medications Current Medications Medication Drug Class(es) Dates Sig (Normalized) Sig (Original) cholecalciferol 0.05 mg oral tablet (1 source) Vitamin D Cholecalciferol 50 MCG (1999) tablet Take by mouth. 0 Active gabapentin 400 mg oral capsule (15 sources) Anti-epileptic Agent Start: 06-11-2022 End: 06-10-2023 take 1 capsule by mouth once daily at bedtime gabapentin (NEURONTIN) 400 mg capsule Take 1 capsule by mouth daily at bedtime for 364 days. Do not start before June 11, 2022. 90 capsule 3 06/11/2022 06/10/2023 Active Completed/Discontinued Medications Medication Drug Class(es) Dates Sig (Normalized) Sig (Original) acetaminophen 500 mg oral tablet (6 sources) Start: 09-07-2010 take 2 tablets by mouth every six hours as needed acetaminophen (TYLENOL EXTRA STRENGTH) 500 mg ORAL tablet Take 2 tablets by mouth every 6 hours as needed. FOR PAIN. 0 09/07/2010 Active Problems Active Problems Problem Classification Problem Date Documented Date Episodic/Chronic Anxiety disorders (1 source) Generalized anxiety disorder; Translations: [Generalized anxiety disorder] Chronic Cataract (5 sources) Bilateral senile combined form cataracts of eyes; Translations: [Combined forms of age-related cataract, bilateral] Onset: 01-17-2014 10-27-2016 Chronic Coagulation and hemorrhagic disorders (5 sources) Platelet count below reference range; Translations: [Thrombocytopenia, unspecified] Onset: 04-12-2012 04-12-2012 Chronic Disorders of lipid metabolism (5 sources) Hyperlipidemia; Translations: [Hyperlipidemia, unspecified] Onset: 11-20-2007 11-03-2009 Chronic Esophageal disorders (5 sources) Gastroesophageal reflux disease; Translations: [Gastro-esophageal reflux disease without esophagitis] Onset: 05-19-2007 11-03-2009 Chronic Essential hypertension (5 sources) Hypertensive disorder; Translations: [Essential (primary) hypertension] Onset: 08-14-2012 08-14-2012 Chronic Osteoarthritis (5 sources) Degenerative joint disease involving multiple joints; Translations: [Polyosteoarthritis, unspecified] Onset: 11-20-2007 11-03-2009 Chronic Other ear and sense organ disorders (5 sources) Hearing loss; Translations: [Unspecified hearing loss, unspecified ear] Onset: 11-03-2009 11-03-2009 Chronic Other eye disorders (5 sources) Bilateral vitreous floaters; Translations: [Other vitreous opacities, bilateral] Onset: 03-26-2015 03-26-2015 Chronic Other upper respiratory disease (5 sources) Chronic rhinitis; Translations: [Chronic rhinitis] Onset: 05-25-2007 11-03-2009 Chronic Residual codes; unclassified (1 source) Restlessness and agitation; Translations: [Restlessness and agitation] Chronic Residual codes; unclassified (1 source) Memory impairment; Translations: [Other amnesia] Episodic Residual codes; unclassified (1 source) Disorientated; Translations: [Disorientation, unspecified] Episodic Retinal detachments; defects; vascular occlusion; and retinopathy (5 sources) Nonexudative age-related macular degeneration; Translations: [Nonexudative age-related macular degeneration, bilateral, early dry stage] Onset: 10-16-2015 10-27-2016 Chronic Spondylosis; intervertebral disc disorders; other back problems (20 sources) Cervical spondylosis; Translations: [Spondylosis without myelopathy or radiculopathy, cervical region] Onset: 11-03-2012 11-03-2012 Chronic Spondylosis; intervertebral disc disorders; other back problems (20 sources) Cervical radiculopathy; Translations: [Radiculopathy, cervical region] Onset: 11-03-2012 11-03-2012 Episodic Unclassified (5 sources) Elevated blood pressure; Translations: [Elevated blood pressure] Onset: 03-12-2012 03-12-2012 Past or Other Problems Problem Classification Problem Date Documented Da te Episodic/Chronic Genitourinary symptoms and ill-defined conditions (5 sources) Nocturia; Translations: [Nocturia] Onset: 03-10-2012 03-10-2012 Episodic Mood disorders (1 source) Mood disorders Onset: 04-24-2023 04-24-2023 Other eye disorders (5 sources) Bilateral epiphora of eyes due to tear drainage disorder; Translations: [Epiphora due to insufficient drainage, bilateral] Onset: 10-27-2016 10-27-2016 Episodic Other eye disorders (5 sources) Epiphora; Translations: [Unspecified epiphora, unspecified side] Onset: 11-18-2016 11-18-2016 Episodic Other fractures (5 sources) Fracture of multiple ribs ; Translations: [Multiple fractures of ribs, unspecified side, initial encounter for closed fracture] Onset: 05-06-2011 05-06-2011 Episodic Other nutritional; endocrine; and metabolic disorders (5 sources) Overweight; Translations: [Overweight] Onset: 05-19-2007 11-03-2009 Episodic Results Test Name Value Interpretation Reference Range Facil ity Vital Signs Date Time Vital Sign Value Performing Clinician Faci lity 08-09-2022 14:56-0400 Body mass index (BMI) [Ratio] 27.5 kg/m2 Adri Velazquez MD Work Phone: [facility] 08-09-2022 14:56-0400 Body temperature 97.7 [degF] Adri Velazquez MD Work Phone: [facility] [employer] [facility] 08-09-2022 14:56-0400 Body weight 77.29 kg [facility] 08-09-2022 14:56-0400 Diastolic blood pressure 74 mm[Hg] Adri Velazquez MD Work Phone: [facility] 08-09-2022 14:56-0400 Heart rate 63 /min Adri [facility]azquez MD [facility] 08-09-2022 14:56-0400 SaO2% (BldA) [Mass fraction] 98 % Adri Velazquez MD Work Phone: [facility] 08-09-2022 14:56-0400 Systolic blood pressure 138 mm[Hg] Adri Velazquez MD Work Phone: [facility] Encounters Encounter Date Encounter Type Care Provider Facility Start: 05-12-2023 End: 05-12-2023 ambulatory CHANCE LASSITER Facility:[facility] Start: 02-22-2023 Telephone encounter Fely ocampo APRN.CNP Work Phone: Pain Management Plan of Treatment Date Care Activity Detail Author Start: 01-20-2026 Urine microalbumin profile DTaP,Tdap,Td Vaccine (2 - Td or Tdap) [facility] Start: 12-17-2022 Covid-19 Vaccine () Covid-19 Vaccine () [facility] Start: 12-17-2022 Influenza vaccination [facility] [employer] [facility] Start: 08-19-2022 End: 08-19-2022 Patient encounter procedure 08/19/2022 Office Visit Family Medicine Adri Velazquez MD [address] [place] [address] [facility] Start: 08-09-2022 End: 08-10-2023 B12/folate level B12 & FOLATE Lab Routine Memory loss or impairment Expected: 08/09/2022, Expires: 08/10/2023 [facility] Immunizations Immunization Date Immunization Notes Care Provider [facility] 03-20-2021 influenza virus vaccine, unspecified formulation Fely Handy APRN.CNP Work Phone: [facility] 08-16-2014 pneumococcal conjuga te vaccine, 13 valent [facility] 12-04-2013 influenza, seasonal, injectable [facility] 12-04-2013 influenza virus vaccine, unspecified formulation [facility] 02-12-2013 influenza virus vaccine, unspecified formulation [facility] 01-26-2012 influenza virus vaccine, unspecified formulation [facility] 02-25-2010 rabies vaccine, unspecified formulation [facility] 02-04-2010 rabies vaccine, unspecified formulation [facility] 01-27-2010 kyrgyz encephaliti s vaccine for intramuscular administration [facility] 01-27-2010 rabies vaccine, unspecified formulation [facility] 09-11-2009 hepatitis A and hepatitis B vaccine [facility] 09-11-2009 yellow fever vaccine Catinateresa brown [facility] 09-10-2008 hepatitis A and hepatitis B vaccine [facility] 08-27-2008 hepatitis A and hepatitis B vaccine Cat[facility] 08-20-2008 hepatitis A and hepatitis B vaccine Catina [facility] 08-20-2008 tetanus and diphther ia toxoids, adsorbed, preservative free, for adult use (2 Lf of tetanus toxoid and 2 Lf of diphtheria toxoid) [facility] 08-20-2008 typhoid vaccine, unspecified formulation [facility] 04-01-2008 zoster vaccine, live [facility] 04-01-2008 zoster vaccine, unspecified formulation Adri Velazquez MD Work Phone: [facility] 05-19-2007 tetanus and diphther ia toxoids, adsorbed, preservative free, for adult use (2 Lf of tetanus toxoid and 2 Lf of diphtheria toxoid) [facility] 02-10-2007 influenza virus vaccine, unspecified formulation [facility] 05-19-2005 pneumococcal polysaccharide vaccine, 23 valent [facility] 05-19-1999 tetanus and diphther ia toxoids, adsorbed, preservative free, for adult use (2 Lf of tetanus toxoid and 2 Lf of diphtheria toxoid) [facility] Payers Date Payer Category Payer Medicare [id number] 2022 Unknown [id number] 2019 Medicare HUMANA MEDICARE HUMANA MEDICARE PPO [id number] 2019-Present [phone] [address] [address] [place] [address] PPO [id number] 2017 Medicare [id number] 2017 Department of [place] [employer] ( and others) PLAN [id number] 2017-Present Other [id number] 2004 [employer] [place] ( and others) [id number] 2004 Medicare MEDICARE MEDICAR E PART A & B [id number] 2004-Present 1 SINDY [facility] [address] [address] [id number] Medicare [id number] 2004 Unknown [id number] 1939 Unknown [id number] 1939 Unknown [id number] Social History Date Type Detail Facility Tobacco smoking stat [facility] Unknown if ever smoked [facility] Start: 1940 Sex Assigned At Not on file [facility] Start: 08-21-2012 End: 08-09-2022 Tobacco smoking status NHIS Ex-smoker [facility] End: 04-18-1969 History of tobacco use Current smoker [facility] End: 04-18-1969 History of tobacco use Cigarette Smoker [facility] Start: 08-21-2012 End: 05-14-2022 Cigarettes smoked current (pack per day) - Reported [address] [facility] Start: 08-21-2012 End: 08-09-2022 Tobacco use and exposure Smokeless tobacco non-user [facility] Start: 03-04-2021 End: 11-27-2021 Alcohol intake Current non-drinker of alcohol (finding) [facility] Start: 08-09-2022 Alcohol intake Ex-drinker (finding) [facility] Start: 08-09-2022 Tobacco Comment Quit 43 years ago [facility] Start: 11-27-2021 End: 05-14-2022 Tobacco use panel [facility] Adult Depression Screening Assessment [address] [facility] Clinical Notes 03-26-2015 to 05-12-2023 Telephone Encounter - Sharla Okeefe - 02/22/2023 1:47 PM ESTTelephone Encounter - Sharla Okeefe - 02/22/2023 8:40 AM ESTTelephone Encounter - Cassandra Jasmine, RN - 11/19/2022 12:11 PM EDT Note Date & Type Note Facility 05-12-2023 Note HNO ID: [id number] Author: FELY HANDY APRN.DINING SERVICE INSPECTOR Service: ? Author Type: Nurse Practitioner Type: Progress Notes Filed: 05/17/2023 11:30 Note Text: Subjective Rudolph Campos presents to [facility] for a follow up appointment. Since the last visit, Rudolph Campos's states the pain has been worsening. Current pain intensity is NA on a scale of 0-10. Unable to determine. The patient has dementia. Pain located in Back area and radiates down to both legs . Pain described as aching The patient reports morning stiffness. Symptoms interfere with physical activity. Pain is exacerbated by prolonged sitting, standing, and walking.. Pain is mitigated by repositioning and walking around. The medications are effective. The patient states the last dose of Tramadol was taken this morning, methocarbamol was taken at noon, and gabapentin was taken last night. Review of Systems Constitutional: (-) Weight Gain (-) Weight Loss (+) Fatigue Cardiovascular: (-) hx heart surgery (-) Pacemaker Respiratory: (+) Shortness of Breath (-) Cough (-) Snoring Gastrointestinal: (-) Incontinence (-) Diarrhea (+) Constipation (-) Nausea/Vomiting Endocrine: (-) Thyroid Disorder (-) Diabetes Hematologic: (+) Prolonged Bleeding (+) Easy Bruising Genitourinary: (+) Incontinence (+) Frequency (-) Urinary Urgency Skin: (+) Open sores/wound-left arm Neurologic: (+) Headache Psychiatric: (-) Depression (-) Anxiety Chief Complaint Patient presents with: Refill Request Pain Physical Examination Wt 153 lb (69.4kg) General:alert Skin: Skin color, texture, turgor normal, no rashes or lesions HEENT: normal Cardiovascular: Regular, rate and rhythm Lungs: Normal respiratory rate and rhythm, unlabored on room air Musculoskeletal: Neck: Supple; good ROM., neg facet loading Back: Tenderness on palpation over the lumbar spine. , Tenderness over the bilateral lumbar facets, Tenderness over the bilateral lumbar paraspinal muscles, Pain reproduced with flexion of the lumbar spine., Pain reproduced with extension of the lumbar spine. , Diffiuclty going from sitting to standing., os facet loading Extremities: Normal exam of the extremities Neurological: Mental Status: alert Gait: Antalgic. The patient uses an assistive device - cane. Trigger points: paravertebral cervical muscles and lumbosacral spine muscles. Assessment Assessment : Patient presents for med refills. [facility]. He will start meds Chronic low back pain that radiates down the bilateral LE Ambulates with a cane. Has a walker coming When standing he become hunched forward Takes Tramadol, gabapentin and robaxin to help with his chronic pain Encounter Diagnosis ICD-10-CM 1. Lumbar spondylosis M47.816 2. Cervical radiculopathy M54.12 traMADol (ULTRAM) 50 mg tablet 3. Cervicalgia M54.2 traMADol (ULTRAM) 50 mg tablet 4. 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 The pain panel was N/A Plan Injection history was reviewed. Medication use and compliance were reviewed. 1. Continue medication management through the Pain Management Center 2. The following approved medication requests have been transmitted electronically. Requested Prescriptions Signed Prescriptions Disp Refills traMADol (ULTRAM) 50 mg tablet 270 tablet 0 Sig: Take 1 tablet by mouth three times a day as needed for pain for up to 90 days. Do not start before May 23, 2023. 3. Continue gabapentin 4. Continue robaxin 5) F/U in one year. Will escript Tramadol to [facility] The level of medical decision making for this encounter was low level. I spent a total of 25 minutes on the date of the service which included preparing to see the patient, [id number] patient care, completing clinical documentation, performing a medically appropriate examination, and ordering medications, tests, or procedures. 1. This document has been created with the use of voice recognition technology. It may contain inaccuracies: (e.g. misspellings, inaccurate syntax or word sense) that have escaped review. 2. The physician, nursing staff and medical assistants are a major part of YOUR TREATMENT TEAM and will be handling your phone calls and inquiries, if any. Unless explicitly told otherwise at the time of your office visit, your study results and ensuing treatment plans will be discussed during your follow-up appointment. If you do not have a follow-up appointment and wish to discuss any issues, please set up an appoin (more content not included)... [facility] 02-22-2023 Miscellaneous Notes Formattin g of this note might be different from the original. Called and spoke with patients regarding appointment. Informed her that the tramadol medication will be refilled and we will reschedule his appointment for May once template is released then all of his medication will be on the same schedule. Spouse agreed with plan. Will call patient once template is released. Sharla Okeefe Attempted to reach patient in regards to appointment on Tuesday being moved from 230 to 12 due to a change in the providers scheduled. No answer left voicemail advising patient to call [phone] back. Sharla Okeefe documented in this encounter [facility] 11-19-2022 Miscellaneous Notes Formattin g of this note might be different from the original. Call to patient's to advise that script went through electronically, dated 11-26. She verbalized understanding. Medication has been escripted and dated for 11-26 Call back to patient's . She read a paper that she received from [facility] stating: The new system allows for electronic prescribing of controlled substances. Paper prescriptions no longer needed. She is going down 12-02, but she needs to activate it 8. Patient's requesting call back when script is electronically sent. Voicemail received November 17, 2022 [id number] Hi this is Mrs. Rudolph Campos. Rudolph Campos is the patient. and I need to leave a message for Jesenia in the Pain Management Department for her to call me. My number is [phone]. Thank you. Patient phones requesting refills for tramadol, methocarbamol, and gabapentin 400 mg. Current prescriptions showing refills available for methocarbamol and gabapentin. Tramadol last prescribed 09/09/22, advised pharmacy will not fill early. Last OV 03/04/2022 Next OV 02/25/2023 Requested Prescriptions Pending Prescriptions Disp Refills traMADol (ULTRAM) 50 mg tablet 270 tablet 0 Sig: Take 1 tablet by mouth three times daily as needed for pain for up to 90 days. Order for tramadol pended Pharmacy verified Please review and advise. Fely Hassan RN Patients contacted the Pain Management Department requesting to speak with Nurse Jesenia and stated Its time to call . Elena can be reached at [phone]. Thank you. Meryl Hugo documented in this encounter [facility] 08-09-2022 History of Presen t illness Narrative Rudolph is here to be seen for dementia, he was referred by the [facility] in [place]. He is here today with his , Elena. She has to provide directions and she feels he is not tuning in. He does wear hearing aides in both ears. He is currently not driving some due to the memory loss and he has problems retina and is seeing a specialist, he sees wavy lines. He does get does have spells of dizziness with nausea and vomiting. His says that his appetite has increased since his heart attack in December 2017. He has has chronic back pain since the [place] War, he was there at age [age] years old. She feels that he may have PTSD, he hears cars in the driveway at night, that are not there. She says that things bother him now, that did not use to bother him. He gets agitated when he cannot remember recent activities. She says he will start tapping when there is no noise or music to tap to. Review of Systems Constitutional: Positive for appetite change. Negative for fever. HENT: Positive for hearing loss. Eyes: Positive for visual disturbance. Gastrointestinal: Positive for nausea and vomiting. Negative for constipation and diarrhea. Musculoskeletal: Positive for back pain and myalgias. Negative for gait problem. Has chronic back pain, since the [place] War. Neurological: Positive for dizziness and headaches. Psychiatric/Behavioral: Positive for agitation, confusion, decreased concentration, dysphoric mood, hallucinations and sleep disturbance. Negative for self-injury and suicidal ideas. The patient is nervous/anxious. Uses a Bipap Time In Room:3:35 HPI:Rudolph Campos is a 82 y.o. male who is seen today for assessment of memory loss. They [facility] and [facility]. Dr. Ramona Sal (new PCP in [place]) No primary care provider on file. is their primary care provider. They are accompanied by Elena. The family's chief concern is that he is mixed up a lot with time awareness, short term memory is poor. Sundowning is prevalent. Gets up and wanders during the night, stays up for 1-3 hours then back to bed. [facility] with [facility]up including eval for hearing, vision and psychiatry at [facility] that diagnosed him with dementia. He has seen a cancer doctor for possible losing blood, pain doctor. Has central sleep apnea and PAT, uses a bipap. Some issues with forgetfulness Include forgetting names, misplacing objects, difficulty staying on task, paying bills, forgetting medications and forgetting issues with driving. Personality changes have included some increased irritability, sleep disturbances, anxiety, and change of their bathing habits. Rudolph is here to be seen for dementia, [facility] [place]. He is here today with his , Elena. She has to provide directions and she feels he is not tuning in. He does wear hearing aides in both ears. He is currently not driving some due to the memory loss and he has problems retina and is seeing a specialist, he sees wavy lines. He does get does have spells of dizziness with nausea and vomiting. His says that his appetite has increased since his heart attack in December 2017. He has has chronic back pain since the [place] War, he was there at age [age] years old. Had pyridostigmine tablets given to him if needed for possible exposures to nerve gasses. She feels that he may have PTSD, he hears cars in the driveway at night, that are not there. He is on edge. He jerks while sleeping repeatedly and does not awake from his sleeping while bed. If he is sleeping in his recliner, he does not jerk. She says that things bother him now, that did not use to bother him. He gets agitated when he cannot remember recent activities. She says he will start tapping his feet when there is no noise or music to tap to, he feels like they just want to move. They walk in [facility] for exercise with bad weather, go on trails in [facility] when weather is good. wants answers. He is not sure why he is here. Some decreased spontaneous conversation but will start some conversations. Recent trip on a bus with up and downs of behaviors for 2 days afterwards. Escalates quickly at times. Review of Systems Constitutional: Positive for appetite change. Negative for fever. HENT: Positive for hearing loss. Eyes: Positive for visual disturbance. Gastrointestinal: Positive for nausea and vomiting. Negative for constipation and diarrhea. Musculoskeletal: Positive for back pain and myalgias. Negative for gait problem. Has chronic back pain, since the War. Neurological: Positive for dizziness and headaches. Psychiatric/Behavioral: Positive for agitation, confusion, decreased concentration, dysphoric mood, hallucinations and sleep disturbance. Negative for self-injury and suicidal ideas. The patient is nervous/anxious. Gets agitated if in pain or can't remember why he is doing something or change in his schedule. Yells and huffy. Has walked out of his house without clothes and demanded to go to work with 2 days of confusion after a trip on bus for a day. Uses a Bipap Urinary incontinence with urgency, wears Depends. Past work up has included seeing opthomology, otolarygology, no neurology or geriatrics due to distance to [facility]. Some lab tests have been performed. Outside records if available have been reviewed or requested. No brain imaging since 2014, Review of Systems: see HPI. In addition noted issues of dizziness with vomiting if dizziness does not get controlled quickly. (menierre's disease) [place]'s disease of skin. Raynaud's disease, thrombocytopenia, thick mucous. Denies seizures. Uses his Bipap Past Medical History: Diagnosis Date Allergies Back pain CAD (coronary artery disease) Erectile dysfunction GERD (gastroesophageal reflux disease) Health maintenance alteration Hearing loss Hemorrhoid Hyperlipidemia Meniere's disease Pain in joint involving shoulder region Prediabetes Sleep apnea Tardive dyskinesia Thrombocytopenia No past surgical history on file. Family History Problem Relation Age of Onset Heart Disease - Other Mother Other - Specify Father black lung Lung Cancer Sister COPD Cancer- Other Brother mouth cancer Current Outpatient Medications Medication Sig Dispense Refill Acetaminophen 325 MG tablet Take 1 tablet by mouth every 4 hours. aspirin EC [address] Take 1 tablet by mouth daily. Atorvastatin 40 MG tablet Take 1 tablet by mouth daily. Cholecalciferol 50 MCG (2000 UT) tablet Take by mouth. Gabapentin 400 MG capsule Take 1 capsule by mouth at bedtime. hydrocortisone 0.5 % Cream cream Apply 1 Application topically 2 times daily. Meclizine HCl 25 MG Chew Tab Chew 1 tablet as needed for Nausea / Vomiting. Up to 4 times a day as needed Methocarbamol 500 MG tablet Take 1 tablet by mouth 2 times daily. Metoprolol 25 MG tab regular release Take 12.5 mg by mouth 2 times daily. Miconazole Nitrate 2 % Aerosol Apply topically. nitroGLYCERIN 0.[address] 1 tablet under tongue every 5 minutes as needed for Chest pain. max = 3 doses. If CP persists after 1st dose, call 911 omeprazole [address] capsule Take 1 capsule by mouth daily. Tamsulosin HCl 0.4 MG capsule Take 1 capsule by mouth daily. TICAGRELOR PO Take 90 mg by mouth 2 times daily. traMADol 50 MG tablet Take 1 tablet by mouth 3 times daily. triamcinolone 0.1 % Cream cream Apply 1 Application topically 2 times daily. LORazepam 0.5 MG tablet Take 1 tablet by mouth every 6 hours as needed for Anxiety, agitation or Insomnia. 30 tablet 0 No current facility-administered medications for this visit. ALLERGIES: Memantine Visit Vitals BP 138/74 (BP Location: Left arm, BP Position: Sitting) Pulse 63 Temp 97.7 F (36.5 C) (Temporal) Wt 77.3 kg (170 lb 6.4 oz) SpO2 98% BMI 27.50 kg/m Physical Exam Vitals and nursing note reviewed. Constitutional: Appearance: Normal appearance. He is obese. HENT: Head: Normocephalic and atraumatic. Mouth/Throat: Mouth: Mucous membranes are moist. Pharynx: Oropharynx is clear. Eyes: Extraocular Movements: Extraocular movements intact. Conjunctiva/sclera: Conjunctivae normal. Pulmonary: Effort: Pulmonary effort is normal. Musculoskeletal: Comments: No visibly inflamed joints Skin: General: Skin is warm and dry. Comments: No evidence of IVDA Neurological: General: No focal deficit present. Mental Status: He is alert. Comments: No DME for ambulation needed. Hearing aide x [address] Psychiatric: Mood and Affect: Mood normal. Comments: Sense of humor evident but quiet much of the time-his is not shy providing info. Assessment and Plan: Will draw labs and get CT of head scheduled, last one is 8 years ago, see in Follow-up for MOCA testing and lab review. Trial of lorazepam between now and then for agitation periods. Leg jerks with sleeping may be interrupting sleep, restless legs at times. Sundowning behaviors. Problem List Items Addressed This Visit None Visit Diagnoses Generalized anxiety disorder - Primary Relevant Medications LORazepam 0.5 MG tablet Agitation Relevant Medications LORazepam 0.5 MG tablet Memory loss or impairment Relevant Orders B12 & FOLATE HOMOCYSTEINE Disorientation Relevant Orders CT HEAD WITHOUT CONTRAST Time out of room: 5:15, then continued note and set up follow up with CT, orders,note.Time in/out: 5:37 PM 1:28 mins total Adri Velazquez MD Geriatrics, Hospice and Palliative Medicine Certified documented in this encounter [facility] 08-09-2022 Instructions Adri Velazquez MD - 08/09/2022 3:00 PM EDT Lorazepam 0.5mg tablet use 1/2 or 1 whole tablet every 6 hours NEEDED for agitation or anxiety as you see him start to wind up. documented in this encounter [facility] 06-02-2022 Miscellaneous Notes Formattin g of this note might be different from the original. Attempted to contact patient's via phone. Left a detailed message that rx is printed and ready for leaf size picker at their earliest convenience. Placed behind [address] hotel front desk agent. Tramadol rx printed and ready to be picked up on 06/08 The following approved medication requests have been transmitted electronically. Requested Prescriptions Signed Prescriptions Disp Refills traMADol (ULTRAM) 50 mg tablet 270 tablet 0 Sig: Take 1 tablet by mouth three times daily as needed for pain for up to 90 days. Do not start before June 11, 2022. Authorizing Provider: FELY HANDY methocarbamol (ROBAXIN) 500 mg tablet 180 tablet 3 Sig: Take 1 tablet by mouth twice daily. Authorizing Provider: FELY HANDY gabapentin (NEURONTIN) 400 mg capsule 90 capsule 3 Sig: Take 1 capsule by mouth daily at bedtime for 364 days. Do not start before June 11, 2022. Authorizing Provider: FELY HANDY APRN.DINING SERVICE INSPECTOR Patient's spouse left voicemail 05/28/2022 Patient's spouse contacted at this time Time for refills of medications Gabapentin and Robaxin to be sent electronically Tramadol to be printed and patient's son with leaf size picker in [address] on 06/08/2022 Fill date should be for 06/11/2022 as that is when they will be going to [facility] Last office visit 03/04/2022 with Fely Handy CNP Future office visit 02/25/2023 with Fely Handy CNP Medications pended to provider at this time documented in this encounter [facility] 11-26-2021 Miscellaneous Notes Formattin g of this note might be different from the original. Received voicemail 11-26-21 at 10:08 AM. This is a message for Jesenia in Dr. Slaughter's office. Please give me a call back. This is Mrs. Rudolph Camops. My number is [phone] and this is in request for Rudolph Campos. date 39. Again, this is a message for Jesenia in Dr. Slaughter's office. Thank you. Cassandra Jasmine RN November 26, 2021 11:50 AM Call back to patient's to gather more information. Patient's asked if Jesenia would be in the office tomorrow stating it was nothing urgent but would rather speak to her. Advised that she may or may not be in the office tomorrow. Forwarded message to JHONY Ba to call patient's back. Cassandra Jasmine RN November 26, 2021 1:09 PM documented in this encounter [facility] documented as of this encounter (statuses as of 11/26/2021) 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 History of Past illness Narrative* Problem Noted Date Diagnosed Date Resolved Date Bilateral nonexudative age-r elated macular degeneration 03/26/2015 10/16/2015 Floaters 03/26/2015 10/16/2015 Nonexudative senile macular degeneration of retina 01/17/2014 10/16/2015 Other vitreous opacities 01/17/2014 documented as of this encounter (statuses as of 11/19/2022) [facility] History of Past illness Narrative* Problem Noted Date Diagnosed Date Resolved Date Bilateral nonexudative age-r elated macular degeneration 03/26/2015 10/16/2015 Floaters 03/26/2015 10/16/2015 Nonexudative senile macular degeneration of retina 01/17/2014 10/16/2015 Other vitreous opacities 01/17/2014 documented as of this encounter (statuses as of 02/23/2023) [facility] History of Past illness Narrative* Problem Noted Date Diagnosed Date Resolved Date Bilateral nonexudative age-r elated macular degeneration 03/26/2015 10/16/2015 Floaters 03/26/2015 10/16/2015 Nonexudative senile macular degeneration of retina 01/17/2014 10/16/2015 Other vitreous opacities 01/17/2014 documented as of this encounter (statuses as of 02/23/2023) [facility] Diagnosis Cervical radiculopathy Brachial neuritis or radiculitis nos Cervicalgia Spinal stenosis of lumbar region with neurogenic claudication Spinal stenosis, lumbar region, with neurogenic claudication documented [facility]* Diagnosis Generalized anxiety disorder- Primary Agitation Other and unspecified special symptom or syndrome, not elsewhere classified Memory loss or impairment Memory loss Disorientation Other general symptoms [facility] Diagnosis Cervical radiculopathy Brachial neuritis or radiculitis nos Cervicalgia Spinal stenosis of lumbar region with neurogenic claudication Spinal stenosis, lumbar region, with neurogenic claudication [facility] Diagnosis Cervical radiculopathy Brachial neuritis or radiculitis nos Cervicalgia Spinal stenosis of lumbar region with neurogenic claudication Spinal stenosis, lumbar region, with neurogenic claudication documented in this encounter [facility] Summary Purpose Family History No Family History Records FoundNo Family History Records FoundNo Family History Records Found Advance Directives No Advanced Directives Records FoundNo Advanced Directives Records FoundNo Advanced Directives Records Found Additional Source Comments (unrecognized sect ion and content) No Status Records FoundNo Status Records FoundNo Status Records Found INFORMATION SOURCE (unrecogn ized section and content) DATE CREATED AUTHOR AUTHOR'S ORGANIZ ATION 08/25/2022 [facility] DATE CREATED AUTHOR AUTHOR'S ORGANIZ ATION 05/18/2023 [facility] Source Comments (unrecognize d section and content) In the event this informatio n is protected by the Federal Confidentiality of Alcohol and Drug Abuse Patient Records regulations: The Federal rules restrict any use of the information to criminally investigate or prosecute any alcohol or drug abuse patient.[facility] the event this information is protected by the Federal Confidentiality of Alcohol and Drug Abuse Patient Records regulations: The Federal rules restrict any use of the information to criminally investigate or prosecute any alcohol or drug abuse patient.[facility] the event this information is protected by the Federal Confidentiality of Alcohol and Drug Abuse Patient Records regulations: The Federal rules restrict any use of the information to criminally investigate or prosecute any alcohol or drug abuse patient.[facility] the event this information is protected by the Federal Confidentiality of Alcohol and Drug Abuse Patient Records regulations: The Federal rules restrict any use of the information to criminally investigate or prosecute any alcohol or drug abuse patient.[facility] the event this information is protected by the Federal Confidentiality of Alcohol and Drug Abuse Patient Records regulations: The Federal rules restrict any use of the information to criminally investigate or prosecute any alcohol or drug abuse patient.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 Procedures ESTABLISHED PATIENT - ESTHELA Self, Self Adri Velazquez MD [address] [place] [address] Referral ID Status Reason Start Date Expiration Date Visits Requested Visits Authorized [id number] Authorized - [facility] 08/09/2022 11/07/2022 999 999 Reason Comments Refill Request Reason Comments Appointment Care Teams (unrecognized sec tion and content) Hemstitcher Relationship Specialty Start Date End Date Chance Lassiter MD [address] [place] [address] PCP - General Family Medicine 10/27/16 Susie Phillips Physician Internal Medicine 06/10/15 Ronaldo Clemons [address] [place] [phone] Physician Ent - Otolaryngology 11/03/15 Ridge Bartlett [address] [place] [phone] Physician Neurology 11/03/15 Hilary Alcantar MD [address] [address] Physician Neurology 11/03/15 Pr[facility]hj[facility]iggins Sr. [address] [facility] [address] [address] Physician Ent - Otolaryngology 11/03/15 Zev Aaron MD [address] [place], [place] [id number] Physician Ophthalmology 11/03/15 Hemstitcher Relationship Specialty Start Date End Date Ramona Sal Family Physician 08/09/22 Hemstitcher Relationship Specialty Start Date End Date Chance Lassiter MD [address] [place] [address] PCP - General Family Medicine 10/27/16 Susie Phillips Physician Internal Medicine 06/10/15 Ronaldo Clemons [address] [place] [phone] Physician Ent - Otolaryngology 11/03/15 Ridge Bartlett [address] [place] [phone] Physician Neurology 11/03/15 Hilary Alcantar MD [address] [id number] Physician Neurology 11/03/15 Prabhjot Riggins Sr. [address] [place] [phone] Physician Ent - Otolaryngology 11/03/15 Zev Aaron MD [address] [place] [address] Physician Ophthalmology 11/03/15 Hemstitcher Relationship Specialty Start Date End Date Chance Lassiter MD [address] [place] [address] PCP - General Family Medicine 10/27/16 Susie Phillips MD Physician Internal Medicine 06/10/15 Ronaldo Clemons [address] [place] [phone] Physician Ent - Otolaryngology 11/03/15 Ridge Bartlett [address] [place] [phone] Physician Neurology 11/03/15 Hilary Alcantar MD [address] [address] Physician Neurology 11/03/15 Prabhjot Riggins Sr. [address] [place] [address] Physician Ent - Otolaryngology 11/03/15 Zev Aaron MD [address] [place], [place] [id number] Physician Ophthalmology 11/03/15 Hemstitcher Relationship Specialty Start Date End Date Chance Lassiter MD [address] [place] [address] PCP - General Family Medicine 10/27/16 Susie Phillips MD Physician Internal Medicine 06/10/15 Ronaldo Clemons [address] [place] [address] Physician Ent - Otolaryngology 11/03/15 Ridge Bartlett [address] [place] [phone] Physician Neurology 11/03/15 Hilary Alcantar MD [address] [address] Physician Neurology 11/03/15 Prabhjot Riggins Sr. [address] [phone] Physician Ent - Otolaryngology 11/03/15 Zev Aaron MD [address] [place], [place] [phone] Physician Ophthalmology 11/03/15 FOR RECORDS PERTAINING TO PATIENTS WHO ARE OR HAVE BEEN ENROLLED IN A CHEMICAL DEPENDENCY/SUBSTANCEABUSE PROGRAM, SOME INFORMATION MAY BE OMITTED. This clinical summary was aggregated from multiple sources. Caution should be exercised in using it in the provision of clinical care. This summary normalizes information from multiple sources, and as a consequence, information in this document may materially change the coding, format and clinical context of patient data. In addition, data may be omitted in some cases. CLINICAL DECISIONS SHOULD BE BASED ON THE PRIMARY CLINICAL RECORDS. [facility] [employer] [facility]. provides no warranty or guarantee of the accuracy or completeness of information in this document.
--- NOTE | 2023-05-20 12:46 | PFTCOMP ---
COMPLETE PULMONARY FUNCTION TEST INTERPRETATION Brief HPI: Patient is an 83-year-old male, currently under the care of myself, who presents to [facility] for complete pulmonary function tests secondary to diagnosis of dyspnea. Respiratory therapist reports good effort, but difficulty completing maneuvers. Interpretation: Forced expiration spirometry shows no large airways obstructive ventilatory defect with an FEV1 of 85% predicted. There is no significant bronchodilator response by strict ATS criteria. Spirograms are of good quality, but show exhalation for only approximately 4 seconds, likely underestimating FVC. The respiratory flow volume loop shows a normal pattern. Lung volumes by body plethysmography show a normal total lung capacity at 4.79 L, 84% predicted. All other lung volumes are within normal limits. Diffusion capacity by carbon monoxide was unable to be completed. The airway resistance is normal. No previous pulmonary function tests were available for review. Impression: Grossly normal pulmonary function tests, but DLCO was unable to be evaluated
== END | disposition home or self-care (01) ==
PROVIDERS: PCP Nurse Practitioner Family; Referring Provider Internal Medicine Critical Care Medicine; Visit Provider Internal Medicine Critical Care Medicine
DX: R06.02 Shortness of breath (principal)
CPT/HCPCS: 94060; 94726

== ENCOUNTER → 2023-05-24 | Outpatient (CLI) | payer MEDICARE, OTHER, SELFPAY ==
[2023-05-24 13:51] VITALS: PULSE 72; PULSE 73; PULSE 74; PULSE 75; PULSE 76; PULSE 78; PULSE 80; PULSE 86; O2SAT 100; O2SAT 95; O2SAT 96; O2SAT 97; O2SAT 98
--- NOTE | 2023-05-26 10:22 | PCM.PSN.6M ---
PSN 6 Minute Walk Test 6 Minute Walk Test 6 Minute Walk Test: 6 Minute Walk Test PSN:6-Minute Walk Test Start: 05/24/23 13:51 Freq: Status: Active Protocol: RESP.6MINW Document 05/24/23 13:51 [facility] (Rec: 05/24/23 13:54 [facility] [id number]) 6 Minute Walk Test Date Performed 05/24/23 Time Performed 13:30 Height 5 ft 4 in Weight: 155 lb Weight in Pounds 155.[address]: Jimmie Marcos Assistive device used: None Pre-test Oxygen Delivery Method Room Air Pulse Ox 100 Pulse Rate (60-100) 72 Dyspnea [place] Scale (0-10) 0 1st minute Oxygen Delivery Method Room Air Pulse Ox 98 Pulse Rate (60-100) 74 Dyspnea [place] Scale (0-10) 0 Number of Rests Taken 0 2nd minute Oxygen Delivery Method Room Air Pulse Ox 97 Pulse Rate (60-100) 73 Dyspnea [place] Scale (0-10) 0 Number of Rests Taken 0 3rd minute Oxygen Delivery Method Room Air Pulse Ox 96 Pulse Rate (60-100) 75 Dyspnea [place] Scale (0-10) 0 Number of Rests Taken 0 4th minute Oxygen Delivery Method Room Air Pulse Ox 95 Pulse Rate (60-100) 76 Dyspnea [place] Scale (0-10) 0 Number of Rests Taken 0 5th minute Oxygen Delivery Method Room Air Pulse Ox 96 Pulse Rate (60-100) 80 Dyspnea [place] Scale (0-10) 0 Number of Rests Taken 0 6th minute Oxygen Delivery Method Room Air Pulse Ox 98 Pulse Rate (60-100) 86 Dyspnea [place] Scale (0-10) 0 Number of Rests Taken 0 Post-test Oxygen Delivery Method Room Air Pulse Ox 100 Pulse Rate (60-100) 78 Dyspnea [place] Scale (0-10) 0 Full Laps Walked 14 Partial Lap, Number of Tiles Walked 17 Total Distance Walked (ft) 843 Interpretation Interpretation: The patient ambulated 843 feet over the course of 6 minutes beginning on room air without assistive devices. Pretesting oxygen saturation was noted to be 100% on room air. With ambulation, the billy oxygen saturation was 95%. This represents a significant exertional oxygen desaturation. Recommendations Recommendations: There is no indication for the use of supplemental oxygen at this time.
== END | disposition home or self-care (01) ==
PROVIDERS: PCP Nurse Practitioner Family; Referring Provider Internal Medicine Critical Care Medicine; Visit Provider Internal Medicine Critical Care Medicine
DX: R06.02 Shortness of breath (principal)
CPT/HCPCS: 94618

== ENCOUNTER → 2023-06-15 | Outpatient (CLI) | payer MEDICARE, OTHER, SELFPAY ==
--- NOTE | 2023-06-15 13:43 | ECHOD_ITS ---
Reason For Study: Dyspnea/SOB Procedure This was a 2D Doppler, Color Flow transthoracic echocardiogram. Exam performed in department. Left Ventricle Normal LV size. Left ventricular systolic function is normal. The left ventricular ejection fraction is 60 %. Stage 1 diastolic dysfunction. No regional wall motion abnormalities noted. Right Ventricle Normal RV size. Normal systolic function. Atria Normal left atrium. Normal right atrium. Mitral Valve Bileaflet diffuse mitral valve thickening. Mild (1+) eccentric mitral valve insufficiency. Tricuspid Valve Normal tricuspid valve. Mild tricuspid valve insufficiency. Pulmonary artery systolic pressure is 25 mmHg. Aortic Valve Normal aortic valve. Mild focal aortic valve thickening. Mild (1+) aortic valve insufficiency. Pulmonic Valve Normal pulmonic valve. Great Vessels Normal aortic root. The pulmonary artery is normal size. Normal inferior vena cava. Pericardium/Pleural No pericardial effusion. MMode/2D Measurements & Calculations LVIDd: 4.4 cm IVSd: 1.2 cm Ao root diam: 3.2 cm LVIDs: 3.3 cm LVPWd: 0.92 cm RVDd: 3.9 cm FS: 24.8 % LAV(MOD-bp): 45.2 ml LVAd ap4: 29.6 cm2 SV(MOD-sp4): 51.8 ml LAV(MOD-bp) Indexed: 25.1 ml/m2 LVLd ap4: 7.8 cm LAV(MOD-sp2): 41.0 ml EDV(MOD-sp4): 93.1 ml LAV(MOD-sp4): 45.6 ml EDV(sp4-el): 96.1 ml LVAs ap4: 17.6 cm2 LVLs ap4: 6.4 cm ESV(MOD-sp4): 41.3 ml ESV(sp4-el): 40.9 ml EF(MOD-sp4): 55.6 % EF(sp4-el): 57.4 % SV(sp4-el): 55.1 ml LA A4 area: 17.6 cm2 LA dimension(2D): 3.5 cm RA A4 area: 12.6 cm2 TAPSE: 2.4 cm Time Measurements MV dec time: 0.39 sec Doppler Measurements & Calculations MV E max nicola: 67.8 cm/sec Lat Peak E' Nicola: 8.2 cm/sec Med Peak E' Nicola: 5.0 cm/sec MV A max nicola: 113.7 cm/sec E/E' lat: 8.3 E/E' med: 13.6 MV E/A: 0.60 Ao V2 max: 121.8 cm/sec LV V1 max: 80.8 cm/sec MV dec slope: 174.8 cm/sec2 Ao max P.9 mmHg LV V1 max P.6 mmHg Ao V2 mean: 80.8 cm/sec Ao mean P.9 mmHg Ao V2 VTI: 24.6 cm PA V2 max: 106.9 cm/sec TR max nicola: 233.6 cm/sec TR max P.8 mmHg ECHO/Echo Complete Interpretation Summary Normal LV size. Left ventricular systolic function is normal. The left ventricular ejection fraction is 60 %. Stage 1 diastolic dysfunction. Ordering Physician: Jimmie Marcos Referring Physician: Ramona Sal Performed By: Ramona Jerez RDCS, RVT
--- OUTSIDE RECORDS SUMMARY | 2023-06-15 23:10 | XMS RPT_ITS | CCD ---
Author Name Unknown Address [address] [place] [address] Organization [facility] Care Team Providers Care Trim Master Operator Name Role Phone Valeria SHI Unavailable Unavailable Valeria SHI Unavailable Unavailable CHANCE LASSITER Unavailable Unavailable ZANA ESCOBAR Unavailable Unavailable LEONIDAS DC Unavailable Unavailable CHANCE LASSITER Unavailable Unavailable MAE GAUTAM Unavailable Unavailable TEODORO HOOPER Unavailable Unavailable FCO GROVE Unavailable Unavailable Unavailable Primary Care Provider UnavailSusie Gambino Unavailable Ronaldo Clemons Unavailable Ridge Bartlett Unavailable Hilary Alcantar MD Unavailable Prabhjot Riggins Sr. Unavailable Zev Aaron MD Unavailable [phone] Chance Lassiter MD Primary Care Provider Susie Phillips Unavailable [phone] Ronaldo Clemons Unavailable [phone] Ridge Bartlett Unavailable Hilary Alcantar MD Unavailable Prabhjot Riggins Sr. Unavailable Zev Aaron MD Unavailable [phone] Chance Lassiter MD Primary Care Provider Unavailable Primary Care Provider UnavailADRI Engel Attending Unavailabl e SELF, SELF Referring Unavailable ADRI VELAZQUEZ Referring UnavailADRI Engel Attending Unavailno Phillips MD, Susie Unavailable CHANCE LASSITER Primary Care Unavailable FELY HANDY Referring Unavailable FELY HANDY Attending Unavailable Allergies Allergy Classification Reported Allergen(s) Allergy Type Date of Onset Reaction(s) Facility (1 source) [facility] 08-09-2022 [facility] Work Phone: Medications Current Medications Medication Drug [...] 27.5 kg/m2 Adri Velazquez MD Work Phone: [facility] 08-09-2022 14:56-0400 Body temperature 97.7 [degF] Adri Velazquez MD Work Phone: [facility] 08-09-2022 14:56-0400 Body weight 77.29 kg Adri [facility]quez MD [facility] 08-09-2022 14:56-0400 Diastolic blood pressure 74 mm[Hg] Adri Velazquez MD Work Phone: [facility] 08-09-2022 14:56-0400 Heart rate 63 /min Adri Velazquez MD [facility] 08-09-2022 14:56-0400 SaO2% (BldA) [Mass fraction] 98 % Adri Velazquez MD Work Phone: [facility] 08-09-2022 14:56-0400 Systolic blood pressure 138 mm[Hg] Adri Velazquez MD Work Phone: [facility] Encounters Encounter Date Encounter Type Care Provider Facility Start: 05-12-2023 End: 05-12-2023 ambulatory CHANCE LASSITER Facility:[facility] Start: 02-22-2023 Telephone encounter Fely ocampo APRN.CNP Work Phone: Pain Management Plan of Treatment Date Care Activity Detail Author Start: 01-20-2026 Urine microalbumin profile DTaP,Tdap,Td Vaccine (2 - Td or Tdap) [facility] Start: 12-17-2022 Covid-19 Vaccine () Covid-19 Vaccine () [facility] Start: 12-17-2022 Influenza vaccination [facility] Start: 08-19-2022 End: 08-19-2022 Patient encounter procedure 08/19/2022 Office Visit Family Medicine Adri Velazquez MD [address] [place] [address] [facility] Start: 08-09-2022 End: 08-10-2023 B12/folate level B12 & FOLATE Lab Routine Memory loss or impairment Expected: 08/09/2022, Expires: 08/10/2023 [facility] Immunizations Immunization Date Immunization Notes Care Provider [facility] 03-20-2021 influenza virus vaccine, unspecified formulation Fely Handy APRN.CNP Work Phone: [facility] 08-16-2014 pneumococcal conjuga te vaccine, 13 valent [facility] 12-04-2013 influenza, seasonal, injectable [facility] 12-04-2013 influenza virus vaccine, unspecified formulation [facility] 02-12-2013 influenza virus vaccine, unspecified formulation [facility] 01-26-2012 influenza virus vaccine, unspecified formulation [facility] 02-25-2010 rabies vaccine, unspecified formulation [facility] 02-04-2010 rabies vaccine, unspecified formulation [facility] 01-27-2010 azeri encephaliti s vaccine for intramuscular administration [facility] 01-27-2010 rabies vaccine, unspecified formulation [facility] 09-11-2009 hepatitis A and hepatitis B vaccine [facility] 09-11-2009 yellow fever vaccine Catinateresa brown [facility] 09-10-2008 hepatitis A and hepatitis B vaccine [facility] 08-27-2008 hepatitis A and hepatitis B vaccine Catina [facility] 08-20-2008 hepatitis A and hepatitis B vaccine Catina [facility] 08-20-2008 tetanus and diphther ia toxoids, adsorbed, preservative free, for adult use (2 Lf of tetanus toxoid and 2 Lf of diphtheria toxoid) [facility] 08-20-2008 typhoid vaccine, unspecified formulation [facility] 04-01-2008 zoster vaccine, live [facility] 04-01-2008 zoster vaccine, unspecified formulation Adri Velazquez MD Work Phone: [facility] 05-19-2007 tetanus and diphther ia toxoids, adsorbed, preservative free, for adult use (2 Lf of tetanus toxoid and 2 Lf of diphtheria toxoid) [facility] 02-10-2007 influenza virus vaccine, unspecified formulation [facility] 05-19-2005 pneumococcal polysaccharide vaccine, 23 valent [facility] 05-19-1999 tetanus and diphther ia toxoids, adsorbed, preservative free, for adult use (2 Lf of tetanus toxoid and 2 Lf of diphtheria toxoid) [facility] Payers Date Payer Category Payer Medicare [id number] 2022 Unknown [id number] 2019 Medicare HUMANA MEDICARE HUMANA MEDICARE PPO [id number] 2019-Present [phone] [address] [address] [place] [address] PPO [id number] 2017 Medicare [id number] 2017 Department of [place] [employer] ( and others) PLAN [id number] 2017-Present Other [id number] 2004 [employer] of [place] ( and others) [id number] 2004 Medicare MEDICARE MEDICAR E PART A & B [id number] 2004-Present 1 [facility]Y [facility] [address] [id number] Medicare [id number] 2004 Unknown [id number] 1939 Unknown [id number] 1939 Unknown [id number] Social History Date Type Detail Facility Tobacco smoking stat [facility] Unknown if ever smoked [facility] Start: 1940 Sex Assigned At Not on file [facility] Start: 08-21-2012 End: 08-09-2022 Tobacco smoking status NHIS Ex-smoker [facility] End: 04-18-1969 History of tobacco use Current smoker [facility] End: 04-18-1969 History of tobacco use Cigarette Smoker [facility] Start: 08-21-2012 End: 05-14-2022 Cigarettes smoked current (pack per day) - Reported 2 [facility] Start: 08-21-2012 End: 08-09-2022 Tobacco use and exposure Smokeless tobacco non-user [facility] Start: 03-04-2021 End: 11-27-2021 Alcohol intake Current non-drinker of alcohol (finding) [facility] Start: 08-09-2022 Alcohol intake Ex-drinker (finding) [facility] Start: 08-09-2022 Tobacco Comment Quit 43 years ago [facility] Start: 11-27-2021 End: 05-14-2022 Tobacco use panel [facility] Adult Depression Screening Assessment 3 [facility] Clinical Notes 03-26-2015 to 05-12-2023 Telephone Encounter - Sharla Okeefe - 02/22/2023 1:47 PM ESTTelephone Encounter - Sharla Okeefe - 02/22/2023 8:40 AM ESTTelephone Encounter - Cassandra Jasmine, RN - 11/19/2022 12:11 PM EDT Note Date & Type Note Facility 05-12-2023 Note HNO ID: [id number] Author: FELY HANDY APRN.TELEPHONIC CASE MANAGER Service: ? Author Type: Nurse Practitioner Type: Progress Notes Filed: 05/17/2023 11:30 Note Text: Subjective Rudolph Campos presents to [facility] Pain Management Department for a follow up [...] year. Will escript Tramadol to [facility] The level of medical decision making for this encounter was low level. I spent a total of 25 minutes on the date of the service which included preparing to see the patient, [id number] patient care, completing clinical documentation, performing a [...] up an appoin (more content not included)... [facility] 02-22-2023 Miscellaneous Notes Formattin g of this [...] answer left voicemail advising patient to call [phone] back. Sharla Okeefe documented in this encounter [facility] 11-19-2022 Miscellaneous Notes Formattin g of this note might be different from the original. Call to patient's to advise that script went through electronically, dated 11-26. She verbalized understanding. Medication has been escripted and dated for 11-26 Call back to patient's . She read a paper that she received from [facility] stating: The new system allows [...] her to call me. My number is [phone]. Thank you. Patient phones requesting refills for [...] call . Elena can be reached at [phone]. Thank you. Meryl Hugo documented in this encounter [facility] 08-09-2022 History of Presen t illness Narrative Rudolph is here to be seen for dementia, he was referred by the [place] [facility] in [place]. He is here today with his , [...] has has chronic back pain since the [place], he was there at age [age] [...] problem. Has chronic back pain, since the [place]. Neurological: Positive for dizziness and headaches. [...] family. Dr. Ramona Sal (new PCP in [place]) No primary care provider on file. is [...] eval for hearing, vision and psychiatry at [place] that diagnosed him with dementia. He has [...] [facility] [place] He is here today with his , [...] has has chronic back pain since the [place], he was there at age [age] [...] just want to move. They walk in [facility] for exercise with bad weather, go on trails in [facility] when weather is good. wants answers. He [...] neurology or geriatrics due to distance to [facility]. Some lab tests have been performed. Outside records if available have been reviewed or requested. No brain imaging since 2014, Review of Systems: see HPI. In addition noted issues of dizziness with vomiting if dizziness does not get controlled quickly. (menierre's disease) Dyess's disease of skin. Raynaud's disease, thrombocytopenia, thick [...] Palliative Medicine Certified documented in this encounter [facility] 08-09-2022 Instructions Adri Velazquez MD - 08/09/2022 3:00 PM EDT Lorazepam 0.5mg tablet use 1/2 or 1 whole tablet every 6 hours NEEDED for agitation or anxiety as you see him start to wind up. documented in this encounter [facility] 06-02-2022 Miscellaneous Notes Formattin g of this note might be different from the original. Attempted to contact patient's via phone. Left a detailed message that rx is printed and ready for cotton picker at their earliest convenience. Placed behind 2C front office associate. Tramadol rx printed and ready to be [...] June 11, 2022. Authorizing Provider: FELY HANDY APRN.TELEPHONIC CASE MANAGER Patient's spouse left voicemail 05/28/2022 Patient's spouse contacted at this time Time for refills of medications Gabapentin and Robaxin to be sent electronically Tramadol to be printed and patient's son with cotton picker [place] [address] on 06/08/2022 Fill date should be for 06/11/2022 as that is when they will be going to [facility] Last office visit 03/04/2022 with Fely Handy CNP Future office visit 02/25/2023 with Fely Handy CNP Medications pended to provider at this time documented in this encounter [facility] 11-26-2021 Miscellaneous Notes Formattin g of this note might be different from the original. Received voicemail 11-26-21 at 10:08 AM. This is a message for Jesenia in Dr. Slaughter's office. Please give me a call back. This is Mrs. Rudolph Campos. 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 01/17/2014 10/16/2015 Other vitreous opacities 01/17/2014 016 documented as of this encounter (statuses as of 06/16/2022) [facility]12-09-2015 History of Past illness Narrative* Problem Noted Date Diagnosed Date Resolved Date Bilateral nonexudative age-r elated macular degeneration 03/26/2015 10/16/2015 Floaters 03/26/2015 10/16/2015 Nonexudative senile macular degeneration of retina 01/17/2014 10/16/2015 Other vitreous opacities 01/17/2014 documented as of this encounter (statuses as of 11/19/2022) [facility]12-09-2015 History of Past illness Narrative* Problem Noted Date Diagnosed Date Resolved Date Bilateral nonexudative age-r elated macular degeneration 03/26/2015 10/16/2015 Floaters 03/26/2015 10/16/2015 Nonexudative senile macular degeneration of retina 01/17/2014 10/16/2015 Other vitreous opacities 01/17/2014 documented as of this encounter (statuses as of 02/23/2023) [facility]12-09-2015 History of Past illness Narrative* Problem Noted Date Diagnosed Date Resolved Date Bilateral nonexudative age-r elated macular degeneration 03/26/2015 10/16/2015 Floaters 03/26/2015 10/16/2015 Nonexudative senile macular degeneration of retina 01/17/2014 10/16/2015 Other vitreous opacities 01/17/2014 documented as of this encounter (statuses as of 02/23/2023) [facility] Diagnosis Cervical radiculopathy Brachial neuritis or radiculitis nos Cervicalgia Spinal stenosis of lumbar region with neurogenic claudication Spinal stenosis, lumbar region, with neurogenic claudication documented in this encounter [facility]* Diagnosis Generalized anxiety disorder- Primary Agitation Other and unspecified special symptom or syndrome, not elsewhere classified Memory loss or impairment Memory loss Disorientation Other general symptoms [facility] Cervical radiculopathy Brachial neuritis or radiculitis nos Cervicalgia Spinal stenosis of lumbar region with neurogenic claudication Spinal stenosis, lumbar region, with neurogenic claudication documented in this encounter [facility] Diagnosis Cervical radiculopathy Brachial neuritis or radiculitis nos Cervicalgia Spinal stenosis of lumbar region with neurogenic claudication Spinal stenosis, lumbar region, with neurogenic claudication documented in this encounter [facility] Summary Purpose Family History No Family [...] DATE CREATED AUTHOR AUTHOR'S ORGANIZ ATION 05/18/2023 [facility] Source Comments (unrecognize d section and content) In the event this informatio n is protected by the Federal Confidentiality of Alcohol and Drug Abuse Patient Records regulations: The Federal rules restrict any use of the information to criminally investigate or prosecute any alcohol or drug abuse patient.[facility] the event this information is protected by the Federal Confidentiality of Alcohol and Drug Abuse Patient Records regulations: The Federal rules restrict any use of the information to criminally investigate or prosecute any alcohol or drug abuse patient.[facility] the event this information is protected by the Federal Confidentiality of Alcohol and Drug Abuse Patient Records regulations: The Federal rules restrict any use of the information to criminally investigate or prosecute any alcohol or drug abuse patient.[facility] the event this information is protected by the Federal Confidentiality of Alcohol and Drug Abuse Patient Records regulations: The Federal rules restrict any use of the information to criminally investigate or prosecute any alcohol or drug abuse patient.[facility] the event this information is protected by the Federal Confidentiality of Alcohol and Drug Abuse Patient Records regulations: The Federal rules restrict any use of the information to criminally investigate or prosecute any alcohol or drug abuse patient.[facility] Reason for Visit (unrecogniz ed section and content) Reason Comments Director Of Enterprise Architecture - Other Reason Comments Memory Loss Specialty Diagnoses / Procedures Referred By Mark blackburn Referred To Contact Geriatric Medicine / Family Medicine Diagnoses Dementia-[facility] Procedures ESTABLISHED PATIENT - ESTHELA Self, Self Adri Velazquez MD [address] [place] [address] Referral ID Status Reason Start Date Expiration Date Visits Requested Visits Authorized [id number] Authorized - [facility] 08/09/2022 11/07/2022 999 999 Reason Comments Refill Request Reason Comments Appointment Care Teams (unrecognized sec tion and content) Trim Master Operator Relationship Specialty Start Date End Date Chance Lassiter MD [address] [place] [address] PCP - General Family Medicine 10/27/16 Susie Phillips Physician Internal Medicine 06/10/15 Ronaldo Clemons [address] [place] [phone] Physician Ent - Otolaryngology 11/03/15 Ridge Bartlett [address] [place] [phone] Physician Neurology 11/03/15 Hilary Alcantar MD [address] [address] Physician Neurology 11/03/15 Prabhjot Riggins Sr. [address] [facility] [address] [address] Physician Ent - Otolaryngology 11/03/15 Zev Aaron MD [address] [place], [place] [phone] Physician Ophthalmology 11/03/15 Trim Master Operator Relationship Specialty Start Date End Date Ramona Sal Family Physician 08/09/22 Trim Master Operator Relationship Specialty Start Date End Date Chance Lassiter MD [address] [place] [address] PCP - General Family Medicine 10/27/16 Susie Phillips Physician Internal Medicine 06/10/15 Ronaldo Clemons [address] [place] [phone] Physician Ent - Otolaryngology 11/03/15 Ridge Bartlett [address] [place] [phone] Physician Neurology 11/03/15 Hilary Alcantar MD [address] [phone] Physician Neurology 11/03/15 Prabhjot Riggins Sr. [address] [place] [phone] Physician Ent - Otolaryngology 11/03/15 Zev Aaron MD [address] [place] [address] Physician Ophthalmology 11/03/15 Trim Master Operator Relationship Specialty Start Date End Date Chance Lassiter MD [address] [place] [address] PCP - General Family Medicine 10/27/16 Susie Phillips MD Physician Internal Medicine 06/10/15 Ronaldo Clemons [address] [place] [phone] Physician Ent - Otolaryngology 11/03/15 Ridge Bartlett [address] [place] [phone] Physician Neurology 11/03/15 Hilary Alcantar MD [address] [address] Physician Neurology 11/03/15 Prabhjot Riggins Sr. [address] [place] [address] Physician Ent - Otolaryngology 11/03/15 Zev Aaron MD [address] [place], [place] [phone] Physician Ophthalmology 11/03/15 Trim Master Operator Relationship Specialty Start Date End Date Chance Lassiter MD [address] [place] [address] PCP - General Family Medicine 10/27/16 Susie Phillips MD Physician Internal Medicine 06/10/15 Ronaldo Clemons [address] [place] [address] Physician Ent - Otolaryngology 11/03/15 Ridge Bartlett [address] [place] [phone] Physician Neurology 11/03/15 Hilary Alcantar MD [address] [address] Physician Neurology 11/03/15 Prabhjot Riggins Sr. [address] [phone] Physician Ent - Otolaryngology 11/03/15 Zev Aaron MD [address] [place], [place] [address] Physician Ophthalmology 11/03/15 FOR RECORDS PERTAINING TO [...] BE BASED ON THE PRIMARY CLINICAL RECORDS. [facility] [employer] [facility]. provides no warranty or guarantee of the accuracy or completeness of information in this document.
== END | disposition home or self-care (01) ==
LOC: CVS 13:43
PROVIDERS: PCP Nurse Practitioner Family; Referring Provider Internal Medicine Critical Care Medicine; Visit Provider Internal Medicine Critical Care Medicine
DX: R06.02 Shortness of breath (principal)
CPT/HCPCS: 93306

== ENCOUNTER → 2023-07-27 | Outpatient (CLI) | payer MEDICARE, OTHER, SELFPAY | END | disposition home or self-care (01) | LOC: SL 20:03 | PROVIDERS: PCP Nurse Practitioner Family; Referring Provider Internal Medicine Critical Care Medicine; Visit Provider Internal Medicine Critical Care Medicine | DX: G47.31 Primary central sleep apnea (principal); I50.32 Chronic diastolic (congestive) heart failure | CPT/HCPCS: 95811 ==

== ENCOUNTER 2024-05-04 15:14 | Observation (INO) | payer OTHER, SELFPAY ==
[2024-05-04] VITALS (9 sets, daily range): BP systolic 126–158; BP diastolic 68–106; PULSE 78–112; RESP 16–18; TEMP 35.8–36.6; O2SAT 94–100; BMI 24.9; BMI 25.1
--- NOTE | 2024-05-04 15:30 | VDLE_ITS ---
Reason For Study: Left leg swelling RIGHT LEFT CFV is compressible, spontaneous, phasic, GSV is normal. competent and demonstrates normal Acute deep vein thrombosis is noted in the augmentation. left CFV, ProfundaV and FV origin. It is Procedure NONCOMPRESSIBLE and dilated. This is a venous duplex using B-mode, color FV prox-distal is compressible with normal flow and spectral Doppler. venous flow. Exam performed portable in ED. POP V is compressible, spontaneous, phasic, A preliminary report was called and/or faxed competent and demonstrates normal to Crystal RN. augmentation. T/P Trunk is compressible. PTV is compressible. LT PerV is compressible. Nonvascularized structure noted in the left popliteal space that measures 1.18 x 3.40 x 3.17 cm. VL/Venous Duplex US, Unilateral Interpretation Summary Acute deep vein thrombosis is noted in the left common femoral vein. Acute deep vein thrombosis is noted in the left femoral vein. Acute deep vein thrombosis is noted in the left profunda femoris vein. The remainder of the left lower extremity deep venous system is patent an d compressible. The left great saphenous vein appears patent and compressible segmentally. A non-va scular, hypoechoic structure is noted in the left popliteal space, measuring 1.18 cm x 3.40 cm x 3 .17 cm. This probably represents a popliteal cyst. Clinical correlation is advised. The right common femoral vein is patent and compressible. Ordering Physician: Justino Choi Referring Physician: Ramona Sal Performed By: Jade Gamboa RVT
--- NOTE | 2024-05-04 15:35 | RAD_ITS ---
EXAM: XR LEFT TIBIA AND FIBULA, 2 VIEWS CLINICAL INDICATION: Swelling, frequent falls TECHNIQUE: Frontal and lateral views of the left tibia and fibula. COMPARISON: No relevant prior studies available. FINDINGS: BONES/JOINTS: Extensor mechanism enthesopathy. Small amount of suprapatellar joint fluid. Moderate osteoarthrosis of the knee. No sclerotic or destructive changes observed. No acute or healing fracture or malalignment. SOFT TISSUES: Unremarkable. No soft tissue swelling or gas. No radiopaque foreign body. VASCULATURE: Peripheral vascular calcifications. RAD/Tibia & Fibula 2 Views IMPRESSION: No acute or healing fracture or malalignment. Electronically Signed: Guilherme Guevara MD at 16:07 EST ,
--- NOTE | 2024-05-04 15:39 | EX.ED.DYSGE1 ---
HPI History of Present Illness Chief Complaint: Edema Narrative Narrative: Chief complaint and HPI: Left lower extremity edema. 84-year-old male with past medical history of Parkinson's disease, dementia, HTN, HLD, CHF presents for evaluation of left lower extremity edema. Patient is nonverbal at baseline and therefore history is taken by family members. Per family member patient has been having swelling of the left lower extremity for the past 3 days. [facility] was [facility] in the office today and concern was for DVT so he was referred to our ED for venous duplex ultrasound. Of note patient has chronic bilateral lower extremity nonhealing ulcers which are being followed closely. Family member states that the patient periodically falls and that he did fall on the left lower extremity a couple days ago. They do not endorse any significant pain in the patient. Denies any fever, chills, chest pain, shortness of breath, abdominal pain, nausea, vomiting. Review of systems: See HPI Medications: As listed on the chart Allergies: As listed on the chart PFSH: Per chart Vital signs: As listed on the chart. Reviewed. Physical exam: Gen: Alert, NAD Head: Normocephalic, atraumatic Eyes: No sclera icterus, conjunctiva clear ENT: Moist mucous membranes Neck: Trachea midline, No JVD CV: RRR, no murmurs, no peripheral edema Resp: Lungs CTA BL, no w/r/c GI: Abd soft, non-distended, non-tender, no r/r/g Musc: Moves all extremities, no deformity, swelling in the left calf compared to the right-not erythematous or warm, no signs of cellulitis, patient has chronic nonhealing vascular ulcers to the bilateral feet-not infected, palpation of the left calf does not seem to endorse pain, DP/PT pulse +2, good capillary refill, compartments soft Skin: Warm, dry Neuro: Alert, oriented, grossly intact, sensation intact Psych: Cooperative, appropriate mood and affect [facility] Medical History Anemia Arthritis Atherosclerosis of [place] coronary artery of [place] heart without angina pectoris Borderline diabetes BPH (benign prostatic hyperplasia) CATARACTS Cervical radiculopathy Coronary artery disease Dementia Dermatitis Dizziness Epiretinal membrane (ERM) of both eyes GERD (gastroesophageal reflux disease) Mono's disease Headache Hearing deficit Hemorrhoids History of left heart catheterization (LHC) (~11/27/17) IFG (impaired fasting glucose) Inflammatory polyarthropathies Macrocytic anemia Myocardial infarction Obstructive sleep apnea Occupational exposure to environmental pollution Old myocardial infarction PAT treated with BiPAP Parkinsons disease Prediabetes Presence of stent in coronary artery (~11/27/17) Pure hypercholesterolemia Raynaud's phenomenon RLS (restless legs syndrome) Seborrheic dermatitis STEMI (ST elevation myocardial infarction) (~11/2017) Tardive dyskinesia Thrombocytopenia Vertigo Home Medications ?Medication ?Instructions ?Recorded ?Last Taken ?Type cholecalciferol (vitamin D3) 50 2,000 unit PO DAILY 09/13/18 Unknown History mcg (2,000 unit) capsule omeprazole 40 mg capsule,delayed 40 mg PO DAILY 11/05/19 Unknown History release tamsulosin 0.4 mg capsule 0.4 mg PO DAILY 07/28/20 Unknown History meclizine 25 mg tablet 25 mg PO 4X/DAY PRN dizziness 08/26/21 Unknown History tramadol 50 mg tablet 50 mg PO TID chronic pain 08/26/21 Unknown History dupilumab 300 mg/2 mL subcutaneous 300 mg subcut .QOW 10/21/22 Unknown History pen injector (Dupixent) atorvastatin 20 mg tablet 40 mg PO QHS 04/21/23 Unknown History trospium 20 mg tablet 20 mg PO DAILY 04/21/23 Unknown History acetaminophen 325 mg capsule 325 mg PO ONCE PRN 04/27/23 Unknown History (Tylenol) hydrocortisone 0.5 % topical cream 1 applic topical BID PRN 04/27/23 Unknown History miconazole nitrate 2 % topical 1 applic topical DAILY PRN 04/27/23 Unknown History cream (Antifungal (miconazole)) risperidone 0.25 mg tablet 0.5 mg PO TID 04/27/23 Unknown History triamcinolone acetonide 0.1 % 1 applic topical DAILY PRN 04/27/23 Unknown History topical cream carbidopa 25 mg-levodopa 100 mg 1 tab PO TID 06/29/23 Unknown History tablet methocarbamol 500 mg tablet 500 mg PO BID PRN Muscle aches 06/29/23 Unknown History carboxymethylcellulose sodium 0.5 1 drp ophthalmic (eye) .QID 08/04/23 Unknown History % eye drops nitroglycerin 0.4 mg sublingual 0.4 mg sublingual Q5-15M PRN chest 08/04/23 Unknown Rx tablet pain #25 tabs Hydrocortisone 2.5%/lidocaine 5% #30 ea 09/16/23 Unknown Rx suppository (cmpd) (hydrocortisone 2.5%/lidocaine 5% suppository (compound)) gabapentin 400 mg capsule 400 mg PO QDAY 09/29/23 Unknown History C10-18 triglycerides (bulk) 1 ea miscellaneous BID PRN 02/02/24 Unknown History (Supposiblend wax) aspirin 81 mg tablet,delayed 81 mg PO DAILY #90 tabs 02/02/24 Unknown Rx release (Adult Aspirin Regimen) metoprolol tartrate 25 mg tablet 12.5 mg (1/2 x 25 mg) PO BID #90 02/02/24 Unknown Rx tabs ticagrelor 60 mg tablet 60 mg PO BID #180 tabs 02/02/24 Unknown Rx Allergy/AdvReac Type Severity Reaction Status Date / Time No Known Allergies Allergy Verified 05/04/24 15:15 Family History Mother Heart disease Father Black lung Surgical History H/O colonoscopy History of tonsillectomy Hx of hernia repair Presence of coronary angioplasty implant and graft S/P skin biopsy Social History Smoking Status: Former smoker how long ago did patient quit smokin years ago alcohol intake: never substance use type: does not use caffeine: Yes Type: coffee Number of servings: 2 EXAM Physical Exam Const Vital Signs: 05/04/24 15:15 05/04/24 15:28 Temperature 98 F Temperature Source Oral Pulse Rate 91 Respiratory Rate 18 Respiratory Effort Normal Non-Labored Respiratory Pattern Normal Blood Pressure 138/98 H Blood Pressure Mean 111 Pulse Ox 100 Oxygen Delivery Method Room Air MDM MDM MDM Narrative Medical decision making narrative: 84-year-old male with past medical history of Parkinson's disease, dementia, HTN, HLD, CHF presents for evaluation of left lower extremity edema. Differential diagnosis includes but is not limited to DVT, venous insufficiency, fracture given frequent falls. Patient is nonverbal at baseline. Venous duplex ultrasound ordered with x-rays of the tip/fib. X-ray of the left tib-fib was personally reviewed by me, ED physician. No fracture or dislocation. Venous duplex ultrasound shows an acute DVT in the left CVF, profunda vein, and femoral vein origin. Patient is a poor candidate for anticoagulation given that he has multiple falls that day/per week per family. Due to him being a poor candidate for anticoagulation, vascular surgery, Dr. Dueñas was contacted and patient was discussed. Plan is for admission via the hospitalist service and IVC filter placement. Patient and family are updated of all the results. Family confirmed understanding of the plan. Patient will be admitted. Will get basic labs including coagulation panel and will await results to start heparin gtt per vascular recommendations. Impression: 1. Left CVF, profunda vein, femoral vein origin DVT Radiography Diagnostic Testing: Clinical Impression(s) from Imaging Studies Tibia/Fibula X-Ray 05/04/24 15:35 IMPRESSION: No acute or healing fracture or malalignment. Electronically Signed: Guilherme Guevara MD at 16:07 EST , Discharge Plan Triage Chief Complaint: Edema ED Provider: Justino Choi Dx/Rx/DC Orders Prescriptions: No Action cholecalciferol (vitamin D3) 2,000 unit capsule 2,000 unit PO DAILY omeprazole 40 mg capsule,delayed release(DR/EC) 40 mg PO DAILY tamsulosin 0.4 mg capsule 0.4 mg PO DAILY Dupixent Pen 300 mg/2 mL pen injector 300 mg subcut .QOW atorvastatin 20 mg tablet 40 mg PO QHS trospium 20 mg tablet 20 mg PO DAILY Rx Instructions: administer on an empty stomach at hs acetaminophen [Tylenol] 325 mg capsule 325 mg PO ONCE PRN hydrocortisone 0.5 % cream 1 applic topical BID PRN miconazole nitrate [Antifungal (miconazole)] 2 % cream 1 applic topical DAILY PRN triamcinolone acetonide 0.1 % cream 1 applic topical DAILY PRN carboxymethylcellulose sodium 0.5 % drops 1 drp ophthalmic (eye) .QID nitroglycerin 0.4 mg tablet, sublingual 0.4 mg SUBLINGUAL Q5-15M PRN (Reason: chest pain) Qty: 25 3RF carbidopa-levodopa 25-100 mg tablet 1 tab PO TID gabapentin 400 mg capsule 400 mg PO QDAY Supposiblend Wax 1 ea miscellaneous BID PRN (DME) hydrocortisone 2.5%/lidocaine 5% suppository (compound) Suppository See Rx Instructions .Route Qty: 30 1RF Rx Instructions: Insert one suppository rectally twice daily for two weeks metoprolol tartrate 25 mg tablet 12.5 mg PO BID Qty: 90 4RF ticagrelor 60 mg tablet 60 mg PO BID Qty: 180 4RF aspirin [Adult Aspirin Regimen] 81 mg tablet,delayed release (DR/EC) 81 mg PO DAILY Qty: 90 4RF tramadol 50 mg tablet 50 mg PO TID meclizine 25 mg tablet 25 mg PO 4X/DAY PRN (Reason: dizziness) methocarbamol 500 mg tablet 500 mg PO BID PRN (Reason: Muscle aches) risperidone 0.25 mg tablet 0.5 mg PO TID Rx Instructions: take 2 tablets PO in qam, 1 tablet qhs Primary Care Provider: Ramona Sal Referrals: Ramona Sal, [facility] [Primary Care Provider] - Print Language: Bulgarian
--- NOTE | 2024-05-04 16:36 | NURSING ---
[facility] CALL[facility]
[2024-05-04 16:55] LABS: Hematocrit 32.3 % (40-54); Hemoglobin 10.6 g/dL (13.0-16.5); Mean Corp Hgb Conc 32.8 g/dL (32-36); Mean Corpuscular Hgb 30.9 pg (27.0-32.0); Mean Corpuscular Volume 94.2 fL (80-94); Mean Platelet Vol. 8.7 fl (6.2-12.0); Platelet Count 115 K/mm3 (150-450); RBC Distribution Width CV 13.2 % (11.6-14.6); RBC Distribution Width SD 45.6 fl (35.1-43.9); Red Blood Count 3.43 M/mm3 (4.6-6.2); White Blood Count 6.9 K/mm3 (4.4-11.0)
[2024-05-04 17:06] LABS: Anion Gap 6 (5-15); BUN 22 mg/dL (7-18); BUN/Creat Ratio 27.5 RATIO (10-20); Calcium,Total 9.1 mg/dL (8.5-10.1); Chloride 106 mmol/L (98-107); EST Glomerular Filtration Rate 98 mL/min (>60); Est Glom Filt Rate - Afr Amer 118 mL/min (>60); Estimated Creatinine Clearance 56.53 ml/min; Glucose 146 mg/dL (74-106); Potassium 4.3 mmol/L (3.5-5.1); Sodium Level 139 mmol/L (136-145)
--- NOTE | 2024-05-04 17:09 | PCM.HP.STD ---
HPI - General General Date of Admission: 05/04/24 Date of Service: 05/04/24 Chief Complaint: Left lower extremity edema HPI Narrative ELEANOR BANDA, is a 84 M who presented to the emergency department [facility] 05/04/2024 with left lower extremity edema. Patient is nonverbal at baseline and history was given by his and son who are at the bedside. He has had left lower extremity for about 3 days. He follows at the [place] and was seen in the office on the day of presentation and they were concerned about possible DVT so he was referred to the emergency department for evaluation. Venous duplex was recommended. Patient also has chronic bilateral lower extremity nonhealing ulcers which she follows as an outpatient and have no concerns at this time. Family does state he follows on a regular basis. Family denies any other symptoms being present to their knowledge. A venous duplex was ordered in the emergency department and showed an acute DVT in the left calf, and femoral vein, profunda vein and femoral vein. The patient was deemed a poor candidate for anticoagulation with multiple falls and the case was discussed with vascular surgery who agreed based on conversation and IVC filter was recommended. The case was discussed with family and they were agreeable to IVC filter placement. Vital signs on presentation showed temperature of 98, heart rate 91, respiratory 18, blood pressure 139/98 and pulse ox was 100% on room air. CBC shows a chronic stable anemia with a hemoglobin of 10.6 and chronic thrombocytopenia with a stable platelet count of 115,000. Coags are normal. Chemistry panel was overtly unremarkable. Left lower extremity plain film was performed and no acute or healing fracture was noted. Patient was taken from the emergency department to the [facility] [employer] [facility] where IVC filter was placed. [facility] Medical History Parkinsons disease Hemorrhoids Epiretinal membrane (ERM) of both eyes IFG (impaired fasting glucose) BPH (benign prostatic hyperplasia) Inflammatory polyarthropathies Dermatitis Raynaud's phenomenon RLS (restless legs syndrome) Dizziness Coronary artery disease Occupational exposure to environmental pollution Tardive dyskinesia Prediabetes Borderline diabetes Presence of stent in coronary artery (~11/27/17) History of left heart catheterization (LHC) (~11/27/17) Pure hypercholesterolemia Old myocardial infarction Macrocytic anemia PAT treated with BiPAP [place]'s disease Obstructive sleep apnea Myocardial infarction Atherosclerosis of [place] coronary artery of [place] heart without angina pectoris STEMI (ST elevation myocardial infarction) (~11/2017) Seborrheic dermatitis Cervical radiculopathy Dementia Vertigo Hearing deficit Headache GERD (gastroesophageal reflux disease) CATARACTS Arthritis Anemia Thrombocytopenia Home Medications ?Medication ?Instructions ?Recorded ?Last Taken ?Type cholecalciferol (vitamin D3) 50 2,000 unit PO DAILY SUPPLEMENT 09/13/18 05/04/24 History mcg (2,000 unit) capsule omeprazole 40 mg capsule,delayed 40 mg PO DAILY GERD 11/05/19 05/04/24 History release tamsulosin 0.4 mg capsule 0.4 mg PO DAILY URINARY FLOW 07/28/20 05/03/24 History meclizine 25 mg tablet 25 mg PO BID PRN dizziness 08/26/21 05/04/24 History tramadol 50 mg tablet 50 mg PO TID chronic pain 08/26/21 05/04/24 History dupilumab 300 mg/2 mL subcutaneous 300 mg subcut .QOW RASH 10/21/22 Unknown History pen injector (Dupixent) atorvastatin 20 mg tablet 40 mg PO QHS CHOLESTEROL 04/21/23 05/03/24 History trospium 20 mg tablet 20 mg PO DAILY OVERACTIVE BLADDER 04/21/23 05/03/24 History acetaminophen 325 mg capsule 325 mg PO ONCE PRN fever or pain 04/27/23 05/04/24 History (Tylenol) hydrocortisone 0.5 % topical cream 1 applic topical BID PRN itching 04/27/23 05/04/24 History miconazole nitrate 2 % topical 1 applic topical DAILY PRN WOUNDS 04/27/23 05/04/24 History cream (Antifungal (miconazole)) triamcinolone acetonide 0.1 % 1 applic topical DAILY PRN WOUNDS 04/27/23 Unknown History topical cream carbidopa 25 mg-levodopa 100 mg 1 tab PO TID 06/29/23 05/04/24 History tablet methocarbamol 500 mg tablet 500 mg PO BID PRN Muscle aches 06/29/23 05/04/24 History carboxymethylcellulose sodium 0.5 1 drp ophthalmic (eye) .QID 08/04/23 05/04/24 History % eye drops nitroglycerin 0.4 mg sublingual 0.4 mg sublingual Q5-15M PRN chest 08/04/23 Unknown Rx tablet pain #25 tabs gabapentin 400 mg capsule 400 mg PO QHS SLEEP 09/29/23 05/03/24 History aspirin 81 mg tablet,delayed 81 mg PO DAILY HEART HEALTH #90 02/02/24 05/04/24 Rx release (Adult Aspirin Regimen) tabs ticagrelor 60 mg tablet 60 mg PO BID HEART #180 tabs 02/02/24 05/04/24 Rx metoprolol tartrate 25 mg tablet 25 mg PO BID BLOOD PRESSURE/HEART 05/04/24 05/04/24 History RATE risperidone 0.5 mg tablet 0.5 mg PO TID AGITATION 05/04/24 05/04/24 History (Risperdal) Allergy/AdvReac Type Severity Reaction Status Date / Time No Known Allergies Allergy Verified 05/04/24 15:15 Family History Mother Heart disease Father Black lung Surgical History H/O colonoscopy Presence of coronary angioplasty implant and graft S/P skin biopsy History of tonsillectomy Hx of hernia repair Social History Smoking Status: Former smoker how long ago did patient quit smokin years ago alcohol intake: never substance use type: does not use caffeine: Yes Type: coffee Number of servings: 2 ROS Review of Systems ROS Unobtainable: other Details: Patient nonverbal at baseline Vital Signs Vital Signs Vital Signs: 05/04/24 15:15 05/04/24 15:28 Temperature 98 F Temperature Source Oral Pulse Rate 91 Respiratory Rate 18 Respiratory Effort Normal Non-Labored Respiratory Pattern Normal Blood Pressure 138/98 H Blood Pressure Mean 111 Pulse Ox 100 Oxygen Delivery Method Room Air Weight Weight: 65.9 kg Body Mass Index (BMI) 24.9 Physical Exam Const alert, no apparent distress, average body habitus and well nourished Constitutional Narrative: Elderly, white male, sitting up in bed, and son at bedside, patient appears comfortable, nontoxic, patient is nonverbal at baseline HEENT normocephalic, head/scalp atraumatic and moist oral mucous membranes Eyes conjunctivae normal Eyes Narrative: No scleral icterus Resp normal respiratory effort, no retractions, no use of accessory muscles and clear to auscultation bilaterally Auscultation: Negative for rales, rhonchi or wheezes Cardio regular rate, regular rhythm, S1 normal heart sound, S2 normal heart sound, no murmurs, no rub, no gallops and no clicks GI normal to inspection, nondistended, normoactive bowel sounds, soft to palpation and non-tender Extremity Extremity Narrative: Left lower extremity edema, no cyanosis or clubbing, right lower extremity within the relates Neuro Neuro Narrative: Patient nonverbal, very rigid with masked facies Psych Psych Narrative: Difficult to assess Results Lab / Micro Data 05/04/24 16:43 05/04/24 16:43 Labs: Laboratory Results - last 24 hr 05/04/24 16:43: WBC 6.9, RBC 3.43 L, Hgb 10.6 L, Hct 32.3 L, MCV 94.2 H, MCH 30.9, MCHC 32.8, RDW Std Deviation 45.6 H, RDW Coeff of Stephany 13.2, Plt Count 115 L, MPV 8.7, Sodium 139, Potassium 4.3, Chloride 106, Carbon Dioxide 27.0, Anion Gap 6, BUN 22 H, Creatinine 0.80, Estim Creat Clear Calc 56.53, Est GFR (MDRD) Af Amer 118, Est GFR (MDRD) Non-Af 98, BUN/Creatinine Ratio 27.5 H, Glucose 146 H, Calcium 9.1 Imaging Radiology Impression Tibia/Fibula X-Ray 05/04/24 15:35 IMPRESSION: No acute or healing fracture or malalignment. Electronically Signed: Guilherme Guevara MD at 16:07 EST , Assessment & Plan Assessment/Plan (1) DVT (deep venous thrombosis): (2) Thrombocytopenia: PLAN: Plan Left lower extremity DVT -DVT is fairly extensive and proximal -Patient not anticoagulation candidate due to frequent falls as a complication of his Parkinson's disease -IVC filter placement--> plan to be today -Patient should be able to be discharged on 03/05/2024 as long as he remains stable post IVC filter placement Chronic thrombocytopenia -Platelet count 115,000 which is stable and consistent with his baseline -Repeat CBC in a.m. to assess stability -Follows with hematology Chronic anemia -Hemoglobin is relatively stable -repeat lab in a.m. CAD/hyperlipidemia/essential hypertension -History of bare-metal stent to proximal RCA -Plan is only for medical management given his advanced dementia and Parkinson's disease -continue home aspirin -continue home Brilinta -continue atorvastatin -continue home metoprolol Advanced dementia -Patient follows with neurology -Nonverbal at baseline Parkinson's disease -Continue carbidopa levodopa BPH with obstruction/overactive bladder -Continue home Flomax -Continue home trospium Lower extremity wounds -No signs of infection and seem to be stable -Continue to monitor GERD -Continue PPI History of PAT -Not currently able to be compliant due to his baseline dementia -Use supplemental oxygen as needed Behavioral disturbances -Continue risperidone Chronic pain -Continue home chronic pain regimen DVT prophylaxis -Subcu Lovenox -Filter to be placed today CODE STATUS -DNR CCA with no intubation per discussion with family at the time of admission Charges/Coding Visit Charges Inpatient E&M: 28658 Init Hosp L2
[2024-05-04 17:11] LABS: Partial Thromboplast Time 27.1 Seconds (24.1-36.2)
[2024-05-04 17:16] LABS: International Normalized Ratio 1.1
--- NOTE | 2024-05-04 17:20 | EX.PCM.CON.S ---
Assessment & Plan Assessment/Plan (1) DVT (deep venous thrombosis): (2) Dementia: QUALIFIERS: Dementia behavioral or psychological symptom: with agitation Dementia severity: unspecified severity Dementia type: unspecified type Qualified Code(s): F03.911 - Unspecified dementia, unspecified severity, with agitation (3) Thrombocytopenia: PLAN: Plan Patient is a candidate for IVC filter placement due to proximal LLE DVT and contraindication to anticoagulation due to frequent falls. IVC filter placement procedure details were discussed with his and son and they were agreeable to proceeding with placement. They did specifically state that they would not want general anesthesia utilized for any reason, they were reassured that the plan is for conscious sedation. Plan for IVC filter placement this evening. NPO for procedure. Plan is for him to be admitted to medicine and stay overnight after the procedure with anticipated discharge to home tomorrow morning. HPI Consult Data Date of Consult: 05/04/24 HPI Narrative HPI Narrative: ELEANOR BANDA, is a 84 M who presents to the [facility] ER with progressively worsened LLE edema. He has advanced Parkinson's dementia and is nonverbal, he was brought into the ER by his and son who provide all history. In the ER he had venous duplex which revealed LLE DVT up to the level of the CFV. He has a history of thrombocytopenia and frequent falls and so long-term anticoagulation is contraindicated and we are consulted for consideration of IVC filter placement. Today, Hgb is 10.6 and PLT count 115. His reports that she has noticed some progressively worsening edema in his left lower leg for the last two weeks. Today is the worst it has been and she had him to see his field administrator at the [place] who recommended PCP/ER evaluation. He has not seemed to have any significant LLE pain, CP, SOB. He has had a recent fall in which he may have hit his LLE but no overt injury. No recent illness or travel. [facility] Medical History Anemia Arthritis Atherosclerosis of [place] coronary artery of [place] heart without angina pectoris Borderline diabetes BPH (benign prostatic hyperplasia) CATARACTS Cervical radiculopathy Coronary artery disease Dementia Dermatitis Dizziness Epiretinal membrane (ERM) of both eyes GERD (gastroesophageal reflux disease) Mono's disease Headache Hearing deficit Hemorrhoids History of left heart catheterization (LHC) (~11/27/17) IFG (impaired fasting glucose) Inflammatory polyarthropathies Macrocytic anemia Myocardial infarction Obstructive sleep apnea Occupational exposure to environmental pollution Old myocardial infarction PAT treated with BiPAP Parkinsons disease Prediabetes Presence of stent in coronary artery (~11/27/17) Pure hypercholesterolemia Raynaud's phenomenon RLS (restless legs syndrome) Seborrheic dermatitis STEMI (ST elevation myocardial infarction) (~11/2017) Tardive dyskinesia Thrombocytopenia Vertigo Home Medications ?Medication ?Instructions ?Recorded ?Last Taken ?Type cholecalciferol (vitamin D3) 50 2,000 unit PO DAILY SUPPLEMENT 09/13/18 Unknown History mcg (2,000 unit) capsule omeprazole 40 mg capsule,delayed 40 mg PO DAILY GERD 11/05/19 Unknown History release tamsulosin 0.4 mg capsule 0.4 mg PO DAILY URINARY FLOW 07/28/20 Unknown History meclizine 25 mg tablet 25 mg PO BID PRN dizziness 08/26/21 Unknown History tramadol 50 mg tablet 50 mg PO TID chronic pain 08/26/21 Unknown History dupilumab 300 mg/2 mL subcutaneous 300 mg subcut .QOW RASH 10/21/22 Unknown History pen injector (Dupixent) atorvastatin 20 mg tablet 40 mg PO QHS CHOLESTEROL 04/21/23 Unknown History trospium 20 mg tablet 20 mg PO DAILY OVERACTIVE BLADDER 04/21/23 Unknown History acetaminophen 325 mg capsule 325 mg PO ONCE PRN fever or pain 04/27/23 Unknown History (Tylenol) hydrocortisone 0.5 % topical cream 1 applic topical BID PRN itching 04/27/23 Unknown History miconazole nitrate 2 % topical 1 applic topical DAILY PRN WOUNDS 04/27/23 Unknown History cream (Antifungal (miconazole)) triamcinolone acetonide 0.1 % 1 applic topical DAILY PRN WOUNDS 04/27/23 Unknown History topical cream carbidopa 25 mg-levodopa 100 mg 1 tab PO TID 06/29/23 Unknown History tablet methocarbamol 500 mg tablet 500 mg PO BID PRN Muscle aches 06/29/23 Unknown History carboxymethylcellulose sodium 0.5 1 drp ophthalmic (eye) .QID 08/04/23 Unknown History % eye drops nitroglycerin 0.4 mg sublingual 0.4 mg sublingual Q5-15M PRN chest 08/04/23 Unknown Rx tablet pain #25 tabs Hydrocortisone 2.5%/lidocaine 5% #30 ea 09/16/23 Unknown Rx suppository (cmpd) (hydrocortisone 2.5%/lidocaine 5% suppository (compound)) gabapentin 400 mg capsule 400 mg PO QHS SLEEP 09/29/23 Unknown History aspirin 81 mg tablet,delayed 81 mg PO DAILY HEART HEALTH #90 02/02/24 Unknown Rx release (Adult Aspirin Regimen) tabs ticagrelor 60 mg tablet 60 mg PO BID HEART #180 tabs 02/02/24 Unknown Rx metoprolol tartrate 25 mg tablet 25 mg PO BID BLOOD PRESSURE/HEART 05/04/24 Unknown History RATE risperidone 0.5 mg tablet 0.5 mg PO TID AGITATION 05/04/24 Unknown History (Risperdal) Allergy/AdvReac Type Severity Reaction Status Date / Time No Known Allergies Allergy Verified 05/04/24 15:15 Family History Mother Heart disease Father Black lung Surgical History H/O colonoscopy History of tonsillectomy Hx of hernia repair Presence of coronary angioplasty implant and graft S/P skin biopsy Social History Smoking Status: Former smoker how long ago did patient quit smokin years ago alcohol intake: never substance use type: does not use caffeine: Yes Type: coffee Number of servings: 2 Physical Exam Const alert and no apparent distress General Appearance: cooperative Orientation / Consciousness: other Other Details: dementia, nonverbal HEENT normocephalic, external ears normal and external nose normal Eyes General Eye: normal appearance of both eyes Neck General: normal visual inspection and trachea midline Resp normal respiratory effort, normal air movement, no retractions and no use of accessory muscles Cardio regular rate and regular rhythm Extremity Extremity Narrative: LLE edema 1+, no erythema, excess warmth No significant RLE edema Skin no rashes or lesions noted Neuro moves all extremities Sensorium / Orientation: awake Psych Appearance: grossly normal Attitude: calm Speech: other nonverbal Mood & Affect: flat affect Memory / Cognition: dementia Lab / Micro Data 05/04/24 16:43 05/04/24 16:43 Labs: Laboratory Results - last 24 hr 05/04/24 16:43: WBC 6.9, RBC 3.43 L, Hgb 10.6 L, Hct 32.3 L, MCV 94.2 H, MCH 30.9, MCHC 32.8, RDW Std Deviation 45.6 H, RDW Coeff of Stephany 13.2, Plt Count 115 L, MPV 8.7, PT 14.0, INR 1.1, APTT 27.1, Sodium 139, Potassium 4.3, Chloride 106, Carbon Dioxide 27.0, Anion Gap 6, BUN 22 H, Creatinine 0.80, Estim Creat Clear Calc 56.53, Est GFR (MDRD) Af Amer 118, Est GFR (MDRD) Non-Af 98, BUN/Creatinine Ratio 27.5 H, Glucose 146 H, Calcium 9.1 Imaging Radiology Impression Tibia/Fibula X-Ray 05/04/24 15:35 IMPRESSION: No acute or healing fracture or malalignment. Electronically Signed: Guilherme Guevara MD at 16:07 EST , Charges/Coding Visit Charges Inpatient E&M: 20385 Init Hosp L2
--- NOTE | 2024-05-04 17:37 | CASEMGMT ---
Care Management Face to Face with patient for initial transition planning/care coordination assessment in the ED. This database report writer introduced self and role at [facility]. Patient lying in bed, alert, but patient is nonverbal at baseline. Patient's , Elena, and patient's son, Rudolph Hauser, willing to participate in assessment and able to answer all questions appropriately. Admitting Diagnosis: DVT Other diagnosis history: dementia, anemia, Morenci's disease, baseline anemia, baseline thrombocytopenia, etc. NOTE: patient reportedly has very low platelets that doctors cannot figure out what is causing it. Patient's states a lot of anxiety surrounding any operations and reports not allowing any further operations on patient due to patient being unable to recover. Patient's reports the [facility] sent patient to [facility] ED and there is a number patient's had in the car for the [facility] to receive updates. Patient's was asked to provide this number to RN CM/SW team should this be necessary. PCP: Ramona Sal Specialists: Dr. Mejia, bag machine adjuster, [facility]. Dr. Eduardo, vacuum bottle assembler. [facility] [place] for Parkinson's. Sleep apnea specialist through the [facility]. [facility] [place] also handles patient's eye care, foot care, and mental health. Patient reportedly also sees someone at the [facility] outpatient pavilion for very low platelets. Preferred Pharmacy: [facility] in [place] (next appointment for 90 day supplies of medication is on 05/25/24). If emergency situation, patient's states patient prefers [facility]. Insurance: [facility]; patient's states [place] and insurance. [facility] reportedly sent patient here and according to patient's , [facility] will be paying. Prescription Benefit: patient's states having prescription benefits through the [place]. Living Will/HPOA: patient's states being patient's HCPOA, however unable to find them on file. LNOK: , Elena. 1 daughter and 2 sons. Living Arrangements: patient reportedly lives with in a 2 story home with first floor living; 2 steps to enter; patient is reportedly completely dependent on patient's for all ADLs. Patient reportedly wears Depends on a daily basis. Patient's reports having to roll patient on patient's sides to change patient during the day. Patient's also reports having to roll patient onto a kitchen chair to help patient sit up when patient needs to get out of bed. Patient's reported no help in the home with patient's care except for when patient's really needs it and will call on patient's son, Rudolph Hauser Transportation: patient's reports driving patient locally, but patient's son Rudolph Hauser drives if there is any distance involved. DME: Bipap, wheelchair, walker, shower seat for tub, grab bars. Patient's insurance reportedly provides patient's Depends and extra incontinence pads. HHC: none SNF/Rehab: no SNF; patient's stated patient did outpatient rehab through [facility] and [facility]. Community Resources: none currently. Patient goals: Patient's wishes for patient to discharge home and denies need for SNF or HHC at this time. Patient's and patient's son educated about PT/OT evaluations and the possibility of recommendations for SNF/HHC. Patient's son more accepting of this information than patient's . Disposition Plan: admission to acute; RN CM/SW to follow for discharge planning needs that may arise. Teena Box, BOOTS AND SHOES SUPERVISOR, OCCUPATIONAL THERAPY PROFESSOR
--- NOTE | 2024-05-04 19:33 | OP.PCM_ITS ---
Operative Report (Standard) Operative Information Date of Procedure: 05/04/24 Pre-Operative Diagnosis: DVT, frequent falls Post-Operative Diagnosis: same Surgery/Procedure Performed: insertion inferior vena cava filter legal administrative secretary: No Type of Anesthesia: Local Procedure Start Time: 19:20 Procedure Stop Time: 19:30 Select all DRAINS/GRAFTS/IMPLANTS that apply: Implanted device Implanted device details: Cook Tulip filter Estimated Blood Loss: 2 Specimen collected: No Description of surgery: HPI: The patient is an 84-year-old male with an acute deep venous thrombosis with history of multiple falls is felt to be unsafe for chronic anticoagulation so an IVC filter is felt to be appropriate. He is taken emergently for placement. Description of procedure: Upon obtaining informed consent and verification of correct patient procedure and site he was taken to the laborer airport maintenance where he was position prepped and draped in the usual fashion. Time out was performed and no sedation administered per family's request. Skin overlying the right common femoral vein was anesthetized with 1% lidocaine and the vessel accessed under ultrasound guidance with a micropuncture needle and wire. This was then exchanged for a micropuncture sheath and a hand injection ilio-caval venogram performed that confirmed satisfactory position with no extravasation or dissection and a patent/normal caliber right iliac vein and vena cava. Through the micro sheath a J wire was advanced and the sheath exchanged for the Cook dilator. This was then exchanged for the Cook filter delivery sheath which was positioned at the L 3 vertebral body. Subtraction venogram revealed the location of the renal vein confluences. The dilator was then withdrawn and a Cook Tulip filter advanced into position and deployed. Completion venogram revealed satisfactory position below the lowest renal vein and minimal tilt. The sheath was then withdrawn and manual pressure held for 10 minutes at which point satisfactory hemostasis was noted. The patient was then returned to the PCU for recovery and bedrest. Surgical Findings: see above Complications Complications: No
[2024-05-04] MEDS: Tolterodine Tartrate 2 MG CAP.SA PO (22:37)
[2024-05-04] MEDS: Metoprolol Tartrate 25 MG Tablet PO (22:37)
[2024-05-04] MEDS: Gabapentin 400 MG Capsule PO (22:37)
[2024-05-04] MEDS: Atorvastatin Calcium 40 MG Tablet PO (22:38)
[2024-05-04] MEDS: traMADol 50 MG Tablet PO (22:38)
[2024-05-04] MEDS: Carbidopa/Levodopa 25/100 Tablet PO (22:38)
[2024-05-04] MEDS: Tamsulosin HCl 0.4 MG Capsule PO (22:38)
[2024-05-04] MEDS: RisperiDONE 0.5 MG Tablet PO (23:25)
[2024-05-05] VITALS (10 sets, daily range): BP systolic 82–154; BP diastolic 53–98; PULSE 60–89; RESP 14–18; TEMP 36.2–36.7; O2SAT 94–98
[2024-05-05 06:42] LABS: Absolute Lymphocyte Count 0.96 X10^3/uL (0.83-4.51); Absolute Neutrophil Count 3.7 X10^3/uL (2.0-7.7); Basophil# 0.02 X10^3/uL; Basophil% 0.3 % (0-1); Eosinophil# 0.24 X10^3/uL; Eosinophils% 4.2 % (0-5); Hemoglobin 9.6 g/dL (13.0-16.5); Lymphocyte # 0.96 X10^3/ul (0.83-4.51); Lymphocyte % 16.7 % (19-41); Mean Corp Hgb Conc 33.1 g/dL (32-36); Mean Corpuscular Hgb 31.5 pg (27.0-32.0); Mean Corpuscular Volume 95.1 fL (80-94); Mean Platelet Vol. 8.9 fl (6.2-12.0); Monocyte# 0.82 X10^3/uL; Monocyte% 14.2 % (0-10); NRBC Flagged by Analyzer 0 % (0-5); Neutrophil # 3.69 X10^3/uL (2.7-7.7); Neutrophil % 64.1 % (47-70); Platelet Count 115 K/mm3 (150-450); RBC Distribution Width CV 13.2 % (11.6-14.6); RBC Distribution Width SD 46.1 fl (35.1-43.9); Red Blood Count 3.05 M/mm3 (4.6-6.2); White Blood Count 5.8 K/mm3 (4.4-11.0)
--- NOTE | 2024-05-05 07:15 | PN.HOSP_ITS ---
Reason for Visit Reason for Visit: Diagnoses Thrombocytopenia, unspecified (05/04/24) Unspecified dementia, unspecified severity, with agitation (05/04/24) Acute embolism and thrombosis of unspecified deep veins of unspecified lower extremity (05/04/24) Objective Data Objective Data Vital Signs: Vital Signs Temp Pulse Resp BP Pulse Ox O2 Del Method 97.8 F 74 16 115/77 95 Room Air 05/05/24 05:45 05/05/24 05:45 05/05/24 05:45 05/05/24 05:45 05/05/24 05:45 05/05/24 05:45 Oxygen Delivery Method Room Air Weight: 141 lb 15.643 oz Body Mass Index (BMI) 25.1 Intake & Output: Intake and Output for Last 24 Hours 05/03/24 05/04/24 05/05/24 23:59 23:59 23:59 Intake Total 240 / 240 Balance 240 / 240 Lab / Micro Data 05/05/24 05:58 05/05/24 05:58 Labs: Laboratory Results - last 24 hr 05/04/24 16:43: WBC 6.9, RBC 3.43 L, Hgb 10.6 L, Hct 32.3 L, MCV 94.2 H, MCH 30.9, MCHC 32.8, RDW Std Deviation 45.6 H, RDW Coeff of Stephany 13.2, Plt Count 115 L, MPV 8.7, PT 14.0, INR 1.1, APTT 27.1, Sodium 139, Potassium 4.3, Chloride 106, Carbon Dioxide 27.0, Anion Gap 6, BUN 22 H, Creatinine 0.80, Estim Creat Clear Calc 56.53, Est GFR (MDRD) Af Amer 118, Est GFR (MDRD) Non-Af 98, B UN/Creatinine Ratio 27.5 H, Glucose 146 H, Calcium 9.1 05/05/24 05:58: WBC 5.8, RBC 3.05 L, Hgb 9.6 L, Hct 29.0 L, MCV 95.1 H, MCH 31.5, MCHC 33.1, RDW Std Deviation 46.1 H, RDW Coeff of Stephany 13.2, Plt Count 115 L, MPV 8.9, Immature Gran % (Auto) 0.500, Neut % (Auto) 64.1, Lymph % (Auto) 16.7 L, Haakon % (Auto) 14.2 H, Eos % (Auto) 4.2, Baso % (Auto) 0.3, Absolute Neuts (auto) 3.7, Absolute Lymphs (auto) 0.96, Nucleated RBC % 0 Radiography Diagnostic Testing: Radiology Impression Venous Doppler Study 05/04/24 15:30 Interpretation Summary Acute deep vein thrombosis is noted in the left common femoral vein. Acute deep vein thrombosis is noted in the left femoral vein. Acute deep vein thrombosis is noted in the left profunda femoris vein. The remainder of the left lower extremity deep venous system is patent and compressible. The left great saphenous vein appears patent and compressible segmentally. A non- vascular, hypoechoic structure is noted in the left popliteal space, measuring 1.18 cm x 3.40 cm x 3.17 cm. This probably represents a popliteal cyst. Clinical correlation is advised. The right common femoral vein is patent and compressible. Ordering Physician: Justino Choi Referring Physician: Ramona Sal Performed By: Jade Gamboa RVT Tibia/Fibula X-Ray 05/04/24 15:35 IMPRESSION: No acute or healing fracture or malalignment. Electronically Signed: Guilherme Guevara MD at 16:07 EST , Physical Exam Narrative Seen and examined in the morning. The nurse called me that patient seems not responding and asked me to see GERMAN. Patient's and son near the bedside. Patient woke up with mild drowsiness and lethargy but responded simple question with opening eyes Physical exam General: Drowsy, lethargy. Disoriented to time and place. Looks dehydrated. HEENT: Atraumatic, PERRLA, EOMI, Normocephalic Oral: Oral mucosa dry. No Gingival or Mucosal Lesions/ Ulcerations Neck: Supple, No JVD, Negative Carotid Bruits Chest wall/Lungs: Air entry diminished in bilateral lung bases. No crepitation/rhonchi Cardiovascular: Regular rate, Regular Rhythm, Normal S1, Normal S2, soft systolic murmur Abdomen: Bowel Sounds Present, Soft, Non Tender, Non-Distended : No dysuria. No renal angle tenderness. No suprapubic tenderness. Extremities: No edema, Capillary Refill Less than 3 Seconds Skin: Right groin/IVC filter access site dry. No hematoma. Musculoskeletal: No Tenderness to Palpation of Joints or Extremities ROM restricted. Neurological: Cranial nerves II-XII grossly intact, DTR 2+/4. No acute focal neurological deficit. Psych/Mental Status: Flat affect Assessment & Plan Assessment/Plan (1) DVT (deep venous thrombosis): (2) Thrombocytopenia: PLAN: Plan This 84-year-old gentleman was admitted with chief complaint of left lower extremity edema and found to have extensive left proximal DVT. 1. Left extensive proximal DVT: Patient is being admitted in PCU. Venous duplex reviewed and shows acute DVT in left CFV, profunda femoris, left femoral vein. Left distal venous system was patent as well left great saphenous vein. Right CFV patent. Popliteal cyst of about size 3.1 cm found in left popliteal space. Based on the above finding and patient not candidate for anticoagulation, IVC filter was inserted yesterday by Dr. Dueñas. 2. Acute encephalopathy most likely metabolic due to dehydration: Patient was found very drowsy, not spontaneous waking up and lethargic in the morning. Later on he woke up. IV fluid bolus of 2 L ordered. 3. Chronic thrombocytopenia -Platelet count 115,000 which is stable and consistent with his baseline. H&H 9.6/29%. Hemoglobin on baseline. CAD/hyperlipidemia/essential hypertension -History of bare-metal stent to proximal RCA -Plan is only for medical management given his advanced dementia and Parkinson's disease -continue home aspirin -continue home Brilinta -continue atorvastatin -continue home metoprolol Advanced dementia -Patient follows with neurology -Nonverbal at baseline Parkinson's disease -Continue carbidopa levodopa BPH with obstruction/overactive bladder -Continue home Flomax -Continue home trospium Lower extremity wounds -No signs of infection and seem to be stable -Continue to monitor GERD -Continue PPI History of PAT -Not currently able to be compliant due to his baseline dementia -Use supplemental oxygen as needed Behavioral disturbances -Continue risperidone Chronic pain -Continue home chronic pain regimen DVT prophylaxis -Subcu Lovenox -Filter to be placed today CODE STATUS -DNR CCA with no intubation per discussion with family at the time of admission Charges/Coding Visit Charges Inpatient E&M: 88258 Subs Hosp L2
[2024-05-05 07:36] LABS: ALB/GLOB Ratio 0.8 RATIO (0.9-2.4); AST(SGOT) 33 U/L (15-37); Alanine Aminotransfer ALT/SGPT 11 U/L (16-61); Albumin, Serum 2.4 g/dL (3.2-5.0); Alkaline Phosphatase 91 U/L (45-117); Anion Gap 3 (5-15); BUN 18 mg/dL (7-18); BUN/Creat Ratio 25.4 RATIO (10-20); Calcium,Total 8.8 mg/dL (8.5-10.1); Chloride 108 mmol/L (98-107); Creatinine, Serum 0.71 mg/dL (0.70-1.30); EST Glomerular Filtration Rate 112 mL/min (>60); Est Glom Filt Rate - Afr Amer 136 mL/min (>60); Estimated Creatinine Clearance 54.33 ml/min; Globulin 3.2 g/dL (2.2-4.2); Glucose 98 mg/dL (74-106); Magnesium 2.1 mg/dL (1.6-2.6); Phosphorus 3.1 mg/dL (2.5-4.9); Potassium 3.4 mmol/L (3.5-5.1); Protein, Total 5.6 g/dL (6.4-8.2); Sodium Level 140 mmol/L (136-145)
[2024-05-05] MEDS: Lactated Ringers 1,000 ML 500 ML IV (09:59)
[2024-05-05] MEDS: Metoprolol Tartrate 25 MG Tablet PO ×2 (10:03→21:21)
[2024-05-05] MEDS: Carbidopa/Levodopa 25/100 Tablet PO ×3 (10:03→17:20)
[2024-05-05] MEDS: Pantoprazole Sodium 40 MG Tablet PO (10:04)
[2024-05-05] MEDS: Cholecalciferol (VIT D3) 25 MCG TABLET (1,000 UNITS) 50 MCG PO (10:05)
[2024-05-05] MEDS: Glycerin/Hypromellose/PEG400 15 ml Bottle 1 DRP OPHTHALMIC ×4 (10:06→21:22)
[2024-05-05] MEDS: Aspirin E.C. 81 MG Tablet PO (10:06)
[2024-05-05] MEDS: RisperiDONE 1 MG Tablet PO ×2 (10:07→14:57)
[2024-05-05] MEDS: TICAGRELOR 60 MG TABLET PO ×2 (10:17→21:30)
[2024-05-05] MEDS: Enoxaparin 40 MG/0.4 ML Syringe SC (10:19)
[2024-05-05] MEDS: Lactated Ringers 1,000 ML 250 ML IV (12:13)
--- NOTE | 2024-05-05 15:14 | CASEMGMT ---
JHONY PALACIOS in to complete GAMBOA Form with . JHONY PALACIOS explained GAMBOA form to , voiced understanding. signed GAMBOA form and filed in chart. provided copy of GAMBOA Form. denies needs or concerns at discharge. states she [facility] working with [facility] to [facility]. had no further questions or concerns.
[2024-05-05] MEDS: Gabapentin 400 MG Capsule PO (21:21)
[2024-05-05] MEDS: Atorvastatin Calcium 40 MG Tablet PO (21:21)
[2024-05-05] MEDS: Tolterodine Tartrate 2 MG CAP.SA PO (21:21)
[2024-05-05] MEDS: Tamsulosin HCl 0.4 MG Capsule PO (21:21)
[2024-05-05] MEDS: traMADol 50 MG Tablet PO (21:21)
[2024-05-05] MEDS: RisperiDONE 0.5 MG Tablet PO (21:21)
[2024-05-06 00:35] VITALS: PULSE 67; RESP 14; O2SAT 96
--- NOTE | 2024-05-06 00:35 | CPS ---
Pt was placed on a sleep lab PAP machine with ASV settings EEP 8, Max PS 17, and Min PS 6
[2024-05-06 02:00] VITALS: BP 115/61; PULSE 62; RESP 16; TEMP 36.6; O2SAT 99
[2024-05-06 07:00] LABS: Absolute Lymphocyte Count 1.17 X10^3/uL (0.83-4.51); Absolute Neutrophil Count 4.7 X10^3/uL (2.0-7.7); Basophil# 0.02 X10^3/uL; Basophil% 0.3 % (0-1); Eosinophil# 0.22 X10^3/uL; Eosinophils% 3.1 % (0-5); Hematocrit 30.2 % (40-54); Lymphocyte # 1.17 X10^3/ul (0.83-4.51); Lymphocyte % 16.7 % (19-41); Mean Corp Hgb Conc 33.1 g/dL (32-36); Mean Corpuscular Hgb 31.1 pg (27.0-32.0); Mean Corpuscular Volume 93.8 fL (80-94); Mean Platelet Vol. 8.9 fl (6.2-12.0); Monocyte# 0.88 X10^3/uL; Monocyte% 12.5 % (0-10); NRBC Flagged by Analyzer 0 % (0-5); Platelet Count 124 K/mm3 (150-450); RBC Distribution Width SD 44.5 fl (35.1-43.9); Red Blood Count 3.22 M/mm3 (4.6-6.2)
[2024-05-06 07:21] LABS: Anion Gap 5 (5-15); BUN 16 mg/dL (7-18); BUN/Creat Ratio 21.1 RATIO (10-20); Calcium,Total 9.1 mg/dL (8.5-10.1); Chloride 108 mmol/L (98-107); Creatinine, Serum 0.76 mg/dL (0.70-1.30); EST Glomerular Filtration Rate 104 mL/min (>60); Est Glom Filt Rate - Afr Amer 126 mL/min (>60); Estimated Creatinine Clearance 54.33 ml/min; Glucose 116 mg/dL (74-106); Potassium 3.6 mmol/L (3.5-5.1); Sodium Level 139 mmol/L (136-145)
[2024-05-06 07:45] VITALS: O2SAT 94
[2024-05-06 07:54] VITALS: BP 158/75; PULSE 82; RESP 17; TEMP 36.7; O2SAT 96
[2024-05-06 08:07] VITALS: PULSE 82
[2024-05-06] MEDS: Metoprolol Tartrate 25 MG Tablet PO (08:07)
[2024-05-06] MEDS: TICAGRELOR 60 MG TABLET PO (08:07)
[2024-05-06] MEDS: Pantoprazole Sodium 40 MG Tablet PO (08:07)
[2024-05-06] MEDS: Glycerin/Hypromellose/PEG400 15 ml Bottle 1 DRP OPHTHALMIC (08:07)
[2024-05-06] MEDS: Cholecalciferol (VIT D3) 25 MCG TABLET (1,000 UNITS) 50 MCG PO (08:08)
[2024-05-06] MEDS: Aspirin E.C. 81 MG Tablet PO (08:08)
[2024-05-06] MEDS: Carbidopa/Levodopa 25/100 Tablet PO (08:08)
[2024-05-06] MEDS: RisperiDONE 1 MG Tablet PO (08:09)
[2024-05-06] MEDS: traMADol 50 MG Tablet PO (08:18)
--- NOTE | 2024-05-06 08:37 | PCM.DC ---
Discharge Instructions Diet Discharge Diet: - (Supervised feeding in upright posture.) DC O2, CPAP, BIPAP needs Home O2 Discharge instructions: No Dressing / Incision Discharge Activity: Return to Normal Activity Weight Bearing Status: Weight bearing as tolerated Dressing / Incision Call your doctor if you observe: Fever of 101 or Higher, Coldness, Increased Pain, Numbness or Tingling, Change in Color, Inability to urinate, Inability to have a bowel movement, Shortness of breath, Dizziness, Fainting spells, Swelling in the ankles, Chest pain, Prolonged hiccupping, Increased palpitations (irregular heartbeat) and Calf discomfort Follow Up Care When: IN 2 WEEKS Test Results: Test results from this visit will be discussed in further detail at your follow-up appointment, if applicable. Discharge Plan Admission Admit Date/Time: 05/04/24 17:10 Primary Reason for Your Visit: IVC filter. Acute encephalopathy Attending Provider: Juan Turk Primary Care Provider: Ramona Sal Consulting Providers: Darrell Dueñas; Barbara Chen Discharge Orders/Prescriptions Prescriptions: Continued cholecalciferol (vitamin D3) 2,000 unit capsule 2,000 unit PO DAILY omeprazole 40 mg capsule,delayed release(DR/EC) 40 mg PO DAILY tamsulosin 0.4 mg capsule 0.4 mg PO DAILY Dupixent Pen 300 mg/2 mL pen injector 300 mg subcut .QOW atorvastatin 20 mg tablet 40 mg PO QHS trospium 20 mg tablet 20 mg PO DAILY Rx Instructions: administer on an empty stomach at hs acetaminophen [Tylenol] 325 mg capsule 325 mg PO ONCE PRN (Reason: fever or pain) hydrocortisone 0.5 % cream 1 applic topical BID PRN (Reason: itching) miconazole nitrate [Antifungal (miconazole)] 2 % cream 1 applic topical DAILY PRN (Reason: WOUNDS) triamcinolone acetonide 0.1 % cream 1 applic topical DAILY PRN (Reason: WOUNDS) carboxymethylcellulose sodium 0.5 % drops 1 drp ophthalmic (eye) .QID nitroglycerin 0.4 mg tablet, sublingual 0.4 mg SUBLINGUAL Q5-15M PRN (Reason: chest pain) Qty: 25 3RF carbidopa-levodopa 25-100 mg tablet 1 tab PO TID gabapentin 400 mg capsule 400 mg PO QHS ticagrelor 60 mg tablet 60 mg PO BID Qty: 180 4RF aspirin [Adult Aspirin Regimen] 81 mg tablet,delayed release (DR/EC) 81 mg PO DAILY Qty: 90 4RF tramadol 50 mg tablet 50 mg PO TID meclizine 25 mg tablet 25 mg PO BID PRN (Reason: dizziness) methocarbamol 500 mg tablet 500 mg PO BID PRN (Reason: Muscle aches) risperidone [Risperdal] 0.5 mg tablet 0.5 mg PO TID Rx Instructions: TAKE 1 TAB QHS AND 2 TABS TWICE A DAY metoprolol tartrate 25 mg tablet 25 mg PO BID Referrals / Follow Up: Ramona Sal, TRANSMISSION MAINTENANCE SUPERVISOR-C [Primary Care Provider] - Disposition Disposition (needs filled in before D/C Order can be placed): Home, Self Care
[2024-05-06] MEDS: Potassium Chloride Oral Tablet 20 MEQ 40 MEQ PO (09:09)
--- NOTE | 2024-05-06 09:49 | DS.PCM_ITS ---
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 1. Left extensive proximal DVT: Patient is being admitted in PCU. Venous duplex reviewed and shows acute DVT in left CFV, profunda femoris, left femoral vein. Left distal venous system was patent as well left great saphenous vein. Right CFV patent. Popliteal cyst of about size 3.1 cm found in left popliteal space. Based on the above finding and patient not candidate for anticoagulation, IVC filter was inserted yesterday by Dr. Dueñas. 05/06: Patient on baseline is on aspirin and ticagrelor. No hematoma/bruits at the access site on right femoral triangle 2. Acute encephalopathy most likely metabolic due to dehydration: Patient was found very drowsy, not spontaneous waking up and lethargic in the morning. Later on he woke up. IV fluid bolus of 2 L ordered. 05/06: Encephalopathy is resolved in the morning after IV fluid bolus and patient was put on CPAP. Patient on baseline. Acute encephalopathy resolved 3. Chronic thrombocytopenia -Platelet count 115,000 which is stable and consistent with his baseline. H&H 9.6/29%. Hemoglobin on baseline. 05/06: Platelet count is 1 24K. CAD/hyperlipidemia/essential hypertension -History of bare-metal stent to proximal RCA -Plan is only for medical management given his advanced dementia and Parkinson's disease -continue home aspirin -continue home Brilinta -continue atorvastatin -continue home metoprolol 05/06: Blood pressure and heart rate are controlled. Advanced dementia -Patient follows with neurology -Nonverbal at baseline Parkinson's disease -Continue carbidopa levodopa BPH with obstruction/overactive bladder -Continue home Flomax -Continue home trospium Lower extremity wounds -No signs of infection and seem to be stable -Continue to monitor GERD -Continue PPI History of PAT -Not currently able to be compliant due to his baseline dementia -Use supplemental oxygen as needed Behavioral disturbances -Continue risperidone Chronic pain -Continue home chronic pain regimen DVT prophylaxis -Subcu Lovenox -Filter to be placed today CODE STATUS -DNR CCA with no intubation per discussion with family at the time of admission Discharge medication reconciliation done. Discharge follow-up instructions completed. Discharge process discussed with the patient and all questions were answered to patient's satisfaction. Follow with PCP in 1 to 2 weeks Total time spent, exact 35 minutes on discharge meds reconciliation, examination, coordination of care with nurses and ancillary staff, review of imaging and blood test and discussion with the patient on follow-up instructions. Medications at Discharge Home Medications cholecalciferol (vitamin D3) 50 mcg (2,000 unit) capsule 2,000 unit PO DAILY SUPPLEMENT 09/13/18 omeprazole 40 mg capsule,delayed release 40 mg PO DAILY GERD 11/05/19 tamsulosin 0.4 mg capsule 0.4 mg PO DAILY URINARY FLOW 07/28/20 meclizine 25 mg tablet 25 mg PO BID PRN dizziness 08/26/21 tramadol 50 mg tablet 50 mg PO TID chronic pain 08/26/21 dupilumab 300 mg/2 mL subcutaneous pen injector (Dupixent) 300 mg subcut .QOW RASH 10/21/22 atorvastatin 20 mg tablet 40 mg PO QHS CHOLESTEROL 04/21/23 trospium 20 mg tablet 20 mg PO DAILY OVERACTIVE BLADDER 04/21/23 acetaminophen 325 mg capsule (Tylenol) 325 mg PO ONCE PRN fever or pain 04/27/23 hydrocortisone 0.5 % topical cream 1 applic topical BID PRN itching 04/27/23 miconazole nitrate 2 % topical cream (Antifungal (miconazole)) 1 applic topical DAILY PRN WOUNDS 04/27/23 triamcinolone acetonide 0.1 % topical cream 1 applic topical DAILY PRN WOUNDS 04/27/23 carbidopa 25 mg-levodopa 100 mg tablet 1 tab PO TID 06/29/23 methocarbamol 500 mg tablet 500 mg PO BID PRN Muscle aches 06/29/23 carboxymethylcellulose sodium 0.5 % eye drops 1 drp ophthalmic (eye) .QID 08/04/23 nitroglycerin 0.4 mg sublingual tablet 0.4 mg sublingual Q5-15M PRN chest pain #25 tabs 08/04/23 gabapentin 400 mg capsule 400 mg PO QHS SLEEP 09/29/23 aspirin 81 mg tablet,delayed release (Adult Aspirin Regimen) 81 mg PO DAILY HEART HEALTH #90 tabs 02/02/24 ticagrelor 60 mg tablet 60 mg PO BID HEART #180 tabs 02/02/24 metoprolol tartrate 25 mg tablet 25 mg PO BID BLOOD PRESSURE/HEART RATE 05/04/24 risperidone 0.5 mg tablet (Risperdal) 0.5 mg PO TID AGITATION 05/04/24 Physical Exam Narrative Seen and examined in the morning. No acute events overnight. Patient slept good on CPAP. On baseline mental status Physical exam General: Awake, nonverbal at baseline. Eye contact present. HEENT: Atraumatic, PERRLA, EOMI, Normocephalic Oral: Oral mucosa moist.No Gingival or Mucosal Lesions/ Ulcerations Neck: Supple, No JVD, Negative Carotid Bruits Chest wall/Lungs: Air entry diminished in bilateral lung bases. No crepitation/rhonchi Cardiovascular: Regular rate, Regular Rhythm, Normal S1, Normal S2, soft systolic murmur Abdomen: Bowel Sounds Present, Soft, Non Tender, Non-Distended : No dysuria. No renal angle tenderness. No suprapubic tenderness. Extremities: No edema, Capillary Refill Less than 3 Seconds Skin: Right groin/IVC filter access site dry. No hematoma. Musculoskeletal: No Tenderness to Palpation of Joints or Extremities ROM restricted. Neurological: Cranial nerves II-XII grossly intact, DTR 2+/4. No acute focal neurological deficit. Psych/Mental Status: Flat affect Weight / BMI Weight Weight: 141 lb 15.643 oz Body Mass Index (BMI) 25.1 ABG / Lab / Microbiology Data 05/06/24 06:08 05/06/24 06:08 Laboratory: Laboratory Results - last 24 hr 05/06/24 06:08: WBC 7.0, RBC 3.22 L, Hgb 10.0 L, Hct 30.2 L, MCV 93.8, MCH 31.1, MCHC 33.1, RDW Std Deviation 44.5 H, RDW Coeff of Stephany 13.0, Plt Count 124 L, MPV 8.9, Immature Gran % (Auto) 0.400, Neut % (Auto) 67.0, Lymph % (Auto) 16.7 L, M loni % (Auto) 12.5 H, Eos % (Auto) 3.1, Baso % (Auto) 0.3, Absolute Neuts (auto) 4.7, Absolute Lymphs (auto) 1.17, Nucleated RBC % 0, Sodium 139, Potassium 3.6, Chloride 108 H, Carbon Dioxide 27.0, Anion Gap 5, BUN 16, Creatinine 0.76, Estim Creat Clear Calc 54.33, Est GFR (MDRD) Af Amer 126, Est GFR (MDRD) Non-Af 104, B UN/Creatinine Ratio 21.1 H, Glucose 116 H, Calcium 9.1 D/C Instructions Discharge Diet: - (Supervised feeding in upright posture.) Weight Bearing Status: Weight bearing as tolerated Call your doctor if you observe: Fever of 101 or Higher, Coldness, Increased Pain, Numbness or Tingling, Change in Color, Inability to urinate, Inability to have a bowel movement, Shortness of breath, Dizziness, Fainting spells, Swelling in the ankles, Chest pain, Prolonged hiccupping, Increased palpitations (irregular heartbeat) and Calf discomfort DC O2, CPAP, BIPAP Needs PSN CPAP & BiPAP: BiPAP & CPAP Settings per PSN Mode BiPAP 05/06/24 00:35 Bipap Delivery Device Face Mask 05/06/24 00:35 BiPAP Expiratory Pressure 8 05/06/24 00:35 Fraction of Inspired Oxygen ( 21 05/05/24 23:00 FIO2) Home O2 Discharge instructions: No When: IN 2 WEEKS Meaningful Use Info Meaningful Use Meaningful Use Diagnoses (Choose all that apply): None applicable Ischemic Stroke Statin Dosing Therapy Reference: STATIN DOSE THERAPY REFERENCE: * Patients > 75 years receive moderate or high dose statin therapy. * Patients 75 years or YOUNGER should receive HIGH intensity statin dose unless contraindicated. You will be required to document reason for non-treatment if statin daily dose does not meet guidelines. HIGH DOSE STATIN THERAPY DAILY Atorvastatin > than or = to 40 mg Rosuvastatin > than or = to 20 mg Amlodipine + Atorvastatin > than or = to 2.5/40 mg Ezetimibe + Simvastatin 10/80 mg Simvastatin 80mg Discharge Plan Admission Admit Date/Time: 05/04/24 17:10 Primary Reason for Your Visit: IVC filter. Acute encephalopathy Attending Provider: Juan Turk Primary Care Provider: Ramona Sal Consulting Providers: Darrell Dueñas; Barbara Chen Discharge Orders/Prescriptions Prescriptions: Continued cholecalciferol (vitamin D3) 2,000 unit capsule 2,000 unit PO DAILY omeprazole 40 mg capsule,delayed release(DR/EC) 40 mg PO DAILY tamsulosin 0.4 mg capsule 0.4 mg PO DAILY Dupixent Pen 300 mg/2 mL pen injector 300 mg subcut .QOW atorvastatin 20 mg tablet 40 mg PO QHS trospium 20 mg tablet 20 mg PO DAILY Rx Instructions: administer on an empty stomach at hs acetaminophen [Tylenol] 325 mg capsule 325 mg PO ONCE PRN (Reason: fever or pain) hydrocortisone 0.5 % cream 1 applic topical BID PRN (Reason: itching) miconazole nitrate [Antifungal (miconazole)] 2 % cream 1 applic topical DAILY PRN (Reason: WOUNDS) triamcinolone acetonide 0.1 % cream 1 applic topical DAILY PRN (Reason: WOUNDS) carboxymethylcellulose sodium 0.5 % drops 1 drp ophthalmic (eye) .QID nitroglycerin 0.4 mg tablet, sublingual 0.4 mg SUBLINGUAL Q5-15M PRN (Reason: chest pain) Qty: 25 3RF carbidopa-levodopa 25-100 mg tablet 1 tab PO TID gabapentin 400 mg capsule 400 mg PO QHS ticagrelor 60 mg tablet 60 mg PO BID Qty: 180 4RF aspirin [Adult Aspirin Regimen] 81 mg tablet,delayed release (DR/EC) 81 mg PO DAILY Qty: 90 4RF tramadol 50 mg tablet 50 mg PO TID meclizine 25 mg tablet 25 mg PO BID PRN (Reason: dizziness) methocarbamol 500 mg tablet 500 mg PO BID PRN (Reason: Muscle aches) risperidone [Risperdal] 0.5 mg tablet 0.5 mg PO TID Rx Instructions: TAKE 1 TAB QHS AND 2 TABS TWICE A DAY metoprolol tartrate 25 mg tablet 25 mg PO BID Referrals / Follow Up: Ramona Sal NP-C [Primary Care Provider] - Disposition Disposition (needs filled in before D/C Order can be placed): Home, Self Care Charges/Coding Visit Charges Inpatient E&M: 68583 Disch Hosp >30min
== END 2024-05-06 09:49 | disposition home or self-care (01) ==
LOC: ED 15:53 → MS3 17:09 → PCU 05-05 01:40
PROVIDERS: Admitting Provider Internal Medicine; Emergency Provider Surgery; PCP Nurse Practitioner Family; Visit Provider Internal Medicine
DX: I82.412 Acute embolism and thrombosis of left femoral vein (principal); L97.929 Non-pressure chronic ulcer of unspecified part of left lower leg with unspecified severity; L97.919 Non-pressure chronic ulcer of unspecified part of right lower leg with unspecified severity; G20.A1 Parkinson's disease without dyskinesia, without mention of fluctuations; I11.0 Hypertensive heart disease with heart failure; I50.9 Heart failure, unspecified; F02.811 Dementia in other diseases classified elsewhere, unspecified severity, with agitation; D69.6 Thrombocytopenia, unspecified; I25.10 Atherosclerotic heart disease of native coronary artery without angina pectoris; N40.1 Benign prostatic hyperplasia with lower urinary tract symptoms; Z79.02 Long term (current) use of antithrombotics/antiplatelets; K21.9 Gastro-esophageal reflux disease without esophagitis; D64.9 Anemia, unspecified; I87.2 Venous insufficiency (chronic) (peripheral); Z87.891 Personal history of nicotine dependence; E78.00 Pure hypercholesterolemia, unspecified; E86.0 Dehydration; Z79.899 Other long term (current) drug therapy; Z79.82 Long term (current) use of aspirin; N13.8 Other obstructive and reflux uropathy; N32.81 Overactive bladder; G89.29 Other chronic pain; G93.40 Encephalopathy, unspecified
CPT/HCPCS: 36415; 37191; 73590; 76937; 80048; 80053; 83735; 84100; 85025; 85027; 85610; 85730; 92610; 93971; 94002; 94660; 94762; 96360; 96361; 96372; 97161; 97166; 97802; 99221; 99284; C1880; C1894; Q9967; A4216; C1769; G0378